=== PATIENT | female | born 1980 | race African-American/Black ===

== ENCOUNTER 2022-01-14 10:50 | Outpatient (REF) | payer OTHER, SELFPAY ==
[2022-01-14 13:34] LABS: Basophils Percent Auto 0.4 % (0-2); Eosinophils Percent Auto 1.3 % (0-4); Hematocrit 32.2 % (37.0-47.0); Hemoglobin 9.3 g/dl (12.0-16.0); Imm Gran Abs Auto 0.01 X10*3/uL (0.00-0.03); Imm Gran Pct Auto 0.4 % (0.0-0.4); Lymphocytes Absolute Auto 0.9 X10*3/uL (1.2-4.9); Lymphocytes Percent Auto 38.7 % (20-40); MANUAL DIFF FLAG SCAN; Mean Corpuscular HGB Conc 28.9 g/dl (31.0-35.0); Mean Corpuscular Hemoglobin 21.4 pg (27.0-33.0); Mean Platelet Volume 11.6 fL (9.4-12.3); Monocytes Absolute Auto 0.3 X10*3/uL (0.1-1.2); Monocytes Percent Auto 11.9 % (2-11); Neutrophils Absolute Auto 1.1 x10*3/uL (2.0-8.3); Neutrophils Percent Auto 47.3 % (45-73); PLT CLUMP 1; Red Blood Count 4.35 X10*6/uL (4.20-5.50); Red Cell Distribution Width 18.7 % (11.0-16.0); SCAN SMEAR FLAG 1
[2022-01-14 13:48] LABS: Iron 23 mcg/dL (30-160); Percent Iron Saturation 7 % (15-50); Total Iron Binding Capacity 342 mcg/dL (228-428); Unsaturated Iron Binding 319 ug/dL
[2022-01-14 13:52] LABS: Platelet Count 218 X10*3/uL (160-400); White Blood Count 2.4 X10*3/uL (4.8-10.8)
[2022-01-14 13:53] LABS: SLIDE REVIEW VERIFIED
[2022-01-14 14:09] LABS: Erythrocyte Sedimentation Rate 16 MM/HR (0-20)
[2022-01-14 14:24] LABS: Creatinine Urine 167.63 mg/dL; Protein/Creatinine Ratio, Ur 0.05 (<0.2); Total Protein Urine Random 8 mg/dL (<12)
[2022-01-15 14:17] LABS: Complement C3 112 mg/dL (83-193)
[2022-01-15 17:32] LABS: Anti DNA DS Antibody 1 IU/mL
== END 2022-01-14 10:51 | disposition home or self-care (01) ==
LOC: HO.10HDL 10:50
PROVIDERS: Visit Provider Internal Medicine Rheumatology
DX: M32.9 Systemic lupus erythematosus, unspecified (principal); D50.9 Iron deficiency anemia, unspecified
CPT/HCPCS: 36415; 83540; 84156; 85025; 85652; 86160; 86225

== ENCOUNTER → 2022-07-17 09:16 | Outpatient (BNVA) | payer OTHER, SELFPAY | PROVIDERS: PCP Internal Medicine; Visit Provider Internal Medicine Rheumatology | DX: Z13.89 Encounter for screening for other disorder (principal) ==

== ENCOUNTER 2022-07-17 10:30 | Outpatient (REF) | payer OTHER, SELFPAY ==
[2022-07-17 13:46] LABS: Basophils Percent Auto 0.4 % (0-2); Hematocrit 35.8 % (37.0-47.0); Hemoglobin 10.8 g/dl (12.0-16.0); Lymphocytes Absolute Auto 0.9 X10*3/uL (1.2-4.9); Mean Corpuscular HGB Conc 30.2 g/dl (31.0-35.0); Mean Corpuscular Hemoglobin 23.1 pg (27.0-33.0); Mean Corpuscular Volume 76.5 fL (80.0-98.0); Red Blood Count 4.68 X10*6/uL (4.20-5.50)
[2022-07-17 13:47] LABS: Eosinophils Absolute Auto 0.1 X10*3/uL (0.0-0.4); Lymphocytes Percent Auto 36.3 % (20-40); Mean Platelet Volume 11.6 fL (9.4-12.3); Monocytes Absolute Auto 0.3 X10*3/uL (0.1-1.2); Monocytes Percent Auto 13.5 % (2-11); Neutrophils Absolute Auto 1.2 x10*3/uL (2.0-8.3); Neutrophils Percent Auto 47.8 % (45-73); Platelet Count 241 X10*3/uL (160-400); Red Cell Distribution Width 16.2 % (11.0-16.0)
[2022-07-17 13:48] LABS: MANUAL DIFF FLAG NO; White Blood Count 2.5 X10*3/uL (4.8-10.8)
[2022-07-17 14:10] LABS: Anion Gap 10 (12-20); Blood Urea Nitrogen 5 mg/dL (9-16); C Reactive Protein 0.13 mg/dL (< or = 0.50); Calcium 8.8 mg/dL (8.4-10.2); Carbon Dioxide 25 mmol/L (22-29); Chloride 107 mmol/L (96-108); Estimated Glomerular Filt Rate > 60; Glucose Random 82 mg/dL (60-115); Iron 16 mcg/dL (30-160); Percent Iron Saturation 6 % (15-50); Potassium 4.1 mmol/L (3.3-5.1); Sodium 138 mmol/L (135-145); Total Iron Binding Capacity 257 mcg/dL (228-428); Unsaturated Iron Binding 241 ug/dL
[2022-07-17 14:22] LABS: Erythrocyte Sedimentation Rate 13 MM/HR (0-20)
[2022-07-17 14:26] LABS: Creatinine Urine 169.36 mg/dL; Protein/Creatinine Ratio, Ur 0.05 (<0.2); Total Protein Urine Random 8 mg/dL (<12)
[2022-07-19 18:23] LABS: Anti DNA DS Antibody 2 IU/mL; SM/Ribonucleoprotein Ab 7.0 POS AI (<1.0 NEG); Smith Protein >8.0 POS AI (<1.0 NEG)
== END 2022-07-17 10:31 | disposition home or self-care (01) ==
LOC: HO.10HDL 10:30
PROVIDERS: Visit Provider Internal Medicine Rheumatology
DX: M32.9 Systemic lupus erythematosus, unspecified (principal); D50.9 Iron deficiency anemia, unspecified
CPT/HCPCS: 36415; 80048; 83540; 84156; 85025; 85652; 86140; 86225; 86235

== ENCOUNTER 2022-12-13 13:06 | Outpatient (REF) | payer OTHER, SELFPAY ==
--- NOTE | ~2022-12-13 | MR_ITS ---
MRI OF THE BRAIN WITHOUT IV CONTRAST INDICATION: Headache. 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 COMPARISON: None available. TECHNIQUE: Multiplanar multisequence MR imaging of the brain was obtained without IV contrast. 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 There are also small areas of cortical/subcortical encephalomalacia and gliosis within the right parietal and occipital lobes. There is no hydrocephalus, extra-axial surface collection, or herniation. The major flow voids at the skull base are preserved. There is no acute infarct on diffusion-weighted imaging. There is no intracranial hemorrhage on the gradient recalled echo acquisition. There is a partially empty sella. The cerebellar tonsils are normally positioned. The cerebellum and brainstem are normal. The craniocervical junction is normal. Osseous marrow signal intensity is homogenous. The visualized soft tissues are unremarkable. MR/MR head/brain wo con IMPRESSION: No acute findings. 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 There are also small areas of cortical/subcortical encephalomalacia and gliosis within the right parietal and occipital lobes. These findings likely reflect chronic infarcts and a vascular workup is advised.
== END 2022-12-13 13:07 | disposition home or self-care (01) ==
LOC: HO.MRI 13:06
PROVIDERS: PCP Internal Medicine; Visit Provider Internal Medicine Endocrinology, Diabetes & Metabolism
DX: G93.2 Benign intracranial hypertension (principal); R51.9 Headache, unspecified
CPT/HCPCS: 70551

== ENCOUNTER → 2022-12-16 09:32 | Outpatient (BNVA) | payer OTHER, SELFPAY | PROVIDERS: PCP Internal Medicine; Visit Provider Internal Medicine Rheumatology ==

== ENCOUNTER 2022-12-16 10:33 | Outpatient (REF) | payer OTHER, SELFPAY ==
[2022-12-16 11:00] LABS: MANUAL DIFF FLAG NO
[2022-12-16 11:49] LABS: Basophils Percent Auto 0.3 % (0-2); Eosinophils Absolute Auto 0.1 X10*3/uL (0.0-0.4); Eosinophils Percent Auto 2.7 % (0-4); Hematocrit 27.6 % (37.0-47.0); Hemoglobin 8.1 g/dl (12.0-16.0); Imm Gran Abs Auto 0.01 X10*3/uL (0.00-0.03); Imm Gran Pct Auto 0.3 % (0.0-0.4); Lymphocytes Absolute Auto 1.2 X10*3/uL (1.2-4.9); Lymphocytes Percent Auto 34.6 % (20-40); Mean Corpuscular HGB Conc 29.3 g/dl (31.0-35.0); Mean Corpuscular Hemoglobin 22.5 pg (27.0-33.0); Mean Corpuscular Volume 76.7 fL (80.0-98.0); Mean Platelet Volume 11.4 fL (9.4-12.3); Monocytes Absolute Auto 0.4 X10*3/uL (0.1-1.2); Monocytes Percent Auto 13.1 % (2-11); Neutrophils Absolute Auto 1.6 x10*3/uL (2.0-8.3); Platelet Count 208 X10*3/uL (160-400); Red Cell Distribution Width 19.5 % (11.0-16.0); White Blood Count 3.4 X10*3/uL (4.8-10.8)
[2022-12-16 12:21] LABS: Erythrocyte Sedimentation Rate 33 MM/HR (0-20)
[2022-12-16 13:09] LABS: C Reactive Protein 0.22 mg/dL (< or = 0.50); Iron 10 mcg/dL (30-160); Percent Iron Saturation 4 % (15-50); Total Iron Binding Capacity 284 mcg/dL (228-428); Unsaturated Iron Binding 274 ug/dL
[2022-12-16 13:13] LABS: Creatinine Urine 209.05 mg/dL; Protein/Creatinine Ratio, Ur 0.05 (<0.2); Total Protein Urine Random 11 mg/dL (<12)
[2022-12-16 13:28] LABS: Thyroid Stimulating Hormone 1.36 uIU/mL (0.32-4.0)
[2022-12-17 18:47] LABS: Complement C3 118 mg/dL (83-193)
[2022-12-18 17:38] LABS: Cardiolipin IgG Ab <2.0 GPL-U/mL; Cardiolipin IgM Ab 10.2 MPL-U/mL
[2022-12-18 20:09] LABS: Haptoglobin 131 mg/dL (43-212)
[2022-12-20 07:23] LABS: PTT (LAC) Screen 32 sec (<=40)
[2022-12-26 12:43] LABS: Beta-2 Glycoprotein IgA 3.4 U/mL (<20.0); Beta-2 Glycoprotein IgG 2.8 U/mL (<20.0); Beta-2 Glycoprotein IgM 10.7 U/mL (<20.0)
== END 2022-12-16 10:34 | disposition home or self-care (01) ==
LOC: HO.10HDL 10:33
PROVIDERS: Visit Provider Internal Medicine Rheumatology
DX: M32.9 Systemic lupus erythematosus, unspecified (principal); R93.0 Abnormal findings on diagnostic imaging of skull and head, not elsewhere classified; D50.9 Iron deficiency anemia, unspecified
CPT/HCPCS: 36415; 83010; 83540; 84156; 84443; 85025; 85597; 85598; 85613; 85652; 85670; 85730; 86140; 86146; 86147; 86160

== ENCOUNTER → 2023-01-14 15:09 | Outpatient (BNV) | payer OTHER, SELFPAY | PROVIDERS: PCP Internal Medicine; Visit Provider Internal Medicine Medical Oncology | DX: D50.9 Iron deficiency anemia, unspecified (principal) | CPT/HCPCS: 99204; 99213 ==

== ENCOUNTER 2023-02-05 13:00 | Outpatient (REF) | payer OTHER, SELFPAY | END 2023-02-05 13:01 | disposition home or self-care (01) | LOC: HO.MDS 13:00 | PROVIDERS: Visit Provider Internal Medicine Medical Oncology | DX: D50.8 Other iron deficiency anemias (principal) | CPT/HCPCS: 96365; J1756 ==

== ENCOUNTER 2023-02-06 11:55 | Outpatient (AMB) | payer OTHER, SELFPAY ==
[2023-02-06 11:57] VITALS: BP 130/72; PULSE 84; TEMP 36.1; O2SAT 98; BMI 29.8
--- NOTE | 2023-02-06 11:57 | A.OFFVIS_ITS ---
Intake Vital Signs 02/06/23 11:57 Height 5 ft 7 in Weight 190 lb 0.615 oz BMI 29.8 BP 130/72 Blood Pressure Location Rt brachial Position Sitting Pulse 84 Pulse Source Pulse Oximeter Temp 97 F Temp Source Skin Pulse Oximetry (%) 98 Oxygen Delivery Method Room Air Intake Visit Reasons: sle Intake Note: Here for SLE follow up Began iron IV infusion yesterday through [facility]. 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 She finally did make it to [facility]. I spoke with the neurologist earlier this week. They think the frontal lobe lesion is the sequela from an old CVA. Workup with CT angiogram of the head and neck, lumbar puncture, and echocardiogram has been ordered. They also repeated her lupus anticoagulant studies but they were all negative as they were at our hospital a few weeks ago. She has been taking time off from work because of overall fatigue. It is unclear whether this is related to autoimmune disease such as lupus or her iron deficiency anemia. She did get infusion of iron this week. That went uneventfully. She does have plans to see cigar bander hand in a few weeks. She still gets heavy periods. She remains on hydroxychloroquine 200 mg twice a day, vitamin-D and multivitamins. She does not have any headaches at this point. There has been no visual symptoms, weakness, oral ulcers, dry eyes, dry mouth, chest pain, palpitations, or abdominal pain. Looking through her old records she regionally presented with alopecia, positive DILMA, fatigue, and leukopenia. She has been on hydroxychloroquine since 2017. [facility] Medical History (Updated 02/06/23 @ 13:25 by Narendra Campos MD) Iron deficiency anemia Surgical History H/O myomectomy Family History Father Diabetes Mother Breast cancer Maternal Grandmother Breast cancer Social History Household Members Other:: lives alone Housing: Condominium Are you a primary respiratory care practitioner to a significant other at home: No Do you presently have visiting nurse or other home services: No 75 years or older and lives alone: No Alcohol intake: current Alcohol intake frequency: holidays/special occasions only Alcohol type: wine Patient Tobacco Use Status: Never used Tobacco e-Cigarette/Vaping Use: Never Used Second Hand Smoke Exposure: No Current occupational status: employed Review of Systems Const Details: Still with some fatigue. She is able to sleep longer at home than she was before her time off from work. Negative for appetite change, weight change, fever, chills, malaise Eyes Details: The headaches have resolved. Negative for vision change, dry eyes and dizziness ENT Details: Negative for hearing change, tinnitus, oral ulcer, nose bleeds and oral dryness. Card Details: Negative chest pain, edema and syncope Resp Details: Negative for SOB, cough and wheezing GI Details: Negative indigestion/heartburn, nausea, abdominal pain, bowel changes, diarrhea, constipation and bloody stool. Details: Menses remain heavy. Extension Clerk evaluation planned. Negative for dysuria, hematuria, nocturia, decreased force/flow and genital discharge Skin/Breast Details: Negative for itching, rash, hives, Raynaud's symptoms, sun sensitivity, and skin cancer Neuro Details: Negative for epilepsy, palsy, stroke, changes in speech, tingling and weakness Psych Details: Negative for anxiety, depression and stress Endo Details: Negative for polyuria and polydypsia Davy/Lymph Details: Negative for excessive bruising or bleeding. Physical Exam Vital Signs: Last Vital Signs Temp 97 F 02/06/23 11:57 Pulse 84 02/06/23 11:57 BP 130/72 02/06/23 11:57 Pulse Ox 98 02/06/23 11:57 Oxygen Delivery Method Room Air 02/06/23 11:57 BMI result Body Mass Index 29.8 APPEARANCE: Patient in no acute distress EYES no redness, pupils equal and reactive to light, eyelids normal EARS:? External ear normal, canal clear and tympanic membrane normal.? No temporal tenderness or TM joint tenderness. NOSE/SINUS:? Airflow through both nares, no nasal discharge, no bleeding THROAT:? Oral mucosa moist, no ulcerations NECK:? No thyromegaly or masses, no adenopathy, trachea midline. HEART:? Regulrar rhythm, S1-S2 heard, no murmurs, rubs or gallops. LUNG:? Clear to percussion and auscultation ABD:? Normal bowel sounds, no organomegaly, masses or tenderness. EXTREMITIES:? No edema, no calf tenderness, normal peripheral pulses. NEURO:? Oriented and alert x3.? No focal weakness.? Reflexes symmetric.? Gait normal. SKIN:? She has multiple areas of hair thinning on the scalp but no significant cutaneous lesions. Elsewhere the skin has no inflammatory or neoplastic lesions.? The fingertips and toes showed no evidence of Raynaud's phenomena. JOINT EXAM:?? Cervical Spine:.? Full range of motion without pain; no tenderness. Thoracic Spine:.? No scoliosis.? No tenderness on palpation. Lumbar Spine:.? Alignment normal.? Full range of motion without pain, no tenderness. Chest Wall:.? No tenderness, swelling, increased warmth or erythema. Hands:.? Normal pain-free range of motion without tenderness, swelling, increased warmth or erythema. Able to make a full fist and has a good director of staff development strength. Wrists:.? Normal pain-free range of motion without tenderness, swelling, increased warmth or erythema. Elbows:. Normal pain-free range of motion without tenderness, swelling, increased warmth or erythema. Shoulders:.?? Full range of motion without pain. No tenderness, weakness, swelling, increased warmth or erythema. Hips:.? Full range of motion without pain. Hip bursa:.? No tenderness. Knees:?? Normal pain-free range of motion without tenderness, swelling, increased warmth or erythema.? There is no effusion or crepitation Ankles:? Normal pain-free range of motion without tenderness, swelling, increased warmth or erythema. Feet:.? Normal pain-free range of motion without tenderness, swelling, increased warmth or erythema. Results Reviewed Results Reviewed: Laboratory Tests 07/17/22 12/16/22 01/14/23 10:35 10:57 16:11 WBC 2.5 L 3.4 L 4.0 L Hgb 10.8 L 8.1 L D 8.9 L Plt Count 188 Laboratory Tests 12/16/22 12/16/22 12/16/22 10:57 10:57 10:57 ESR 33 H Haptoglobin 131 Creatinine Iron C-Reactive Protein 0.22 01/14/23 16:11 ESR Haptoglobin Creatinine 0.74 Iron 14 L C-Reactive Protein Laboratory Tests 07/17/22 12/16/22 10:35 10:57 Sm (Cho) Antibody >8.0 POS A SM/MAGAZINE PUBLISHER IgG Antibody 7.0 POS A Double Strand DNA Ab 2 Beta-2-GPI IgG Ab 2.8 Beta-2-GPI IgA Ab 3.4 Beta-2-GPI IgM Ab 10.7 Laboratory Tests 12/16/22 10:57 LA PTT Screen 32 dRVV Screen 39 02/03/2023 lab work from [facility]: Hemoglobin 9.1, white count 3.2, sed rate 54, creatinine 0.7, PTT 24.2, albumin 4.1, transaminases normal, CRP 0.4, C3 101, the C4-12, beta 2 glycoprotein antibodies negative, DILMA positive at 320 titer, spot urine protein 612 mg/dL Assessment & Plan Assessment & Plan (1) History of CVA (cerebrovascular accident): Comment: Right frontal lobe encephalomalacia seen on MRI 11/2022 probable old CVA; ? residual memory deficits Code(s): Z86.73 - Personal history of transient ischemic attack (TIA), and cerebral infarction without residual deficits (2) Long-term use of hydroxychloroquine: Code(s): Z79.899 - Other longterm (current) drug therapy (3) Iron deficiency anemia: Comment: fall 2020; intravenous iron begun January 2023. Extension Clerk workup pending Code(s): D50.9 - Iron deficiency anemia, unspecified (4) Systemic lupus: Comment: 2016 - initially saw Dr. Stevenson at [place] Alopecia, arthralgia, mild leukopenia Plaquenil since 2016. Eye exam December,, December 20202019: anti DNA, C3, C4 normal. Anti- MAGAZINE PUBLISHER and anti-Sm elevated Code(s): M32.9 - Systemic lupus erythematosus, unspecified Plan SLE with no real symptoms to suggest clinical activity. Additionally the exam does not show any inflammatory disease. She has chronic leukopenia. The ESR is a bit higher than previously. The hemoglobin is stable and probably will get better with the intravenous iron. She will follow through with the cigar bander hand workup. She is now on aspirin daily as a prophylactic measure for stroke. She is awaiting dates for echocardiogram, CT angiogram of the head and neck and lumbar puncture. I told her that presently I would not add [id number] treatment for her lupus. There is no real evidence that she has active disease other than the slight elevation of a sed rate recently. If the LP shows sign of inflammation we may need to change that plan however. Recent urine testings at [facility] suggested some proteinuria. I will recheck that here. It is possible the test was influenced by the fact that she was menstruating at the time. I will see her back in about 6 weeks. Orders: Orders Protein Creatinine Ratio, Ur Today M32.9 - Systemic lupus erythematosus, unspecified Medications: New aspirin 81 mg PO DAILY 30 tabs 5RF Coding Level of Care Code Est Pt Level 3 (63499) Diagnoses History of CVA (cerebrovascular accident) Z86.73 Long-term use of hydroxychloroquine Z79.899 Iron deficiency anemia D50.9 Systemic lupus M32.9
== END 2023-02-06 12:29 | disposition home or self-care (01) ==
PROVIDERS: Referring Provider Internal Medicine; Visit Provider Internal Medicine Rheumatology
DX: Z86.73 Personal history of transient ischemic attack (TIA), and cerebral infarction without residual deficits (principal); Z79.899 Other long term (current) drug therapy; D50.9 Iron deficiency anemia, unspecified; M32.9 Systemic lupus erythematosus, unspecified
CPT/HCPCS: 99213

== ENCOUNTER → 2023-02-06 11:55 | Outpatient (BNVA) | payer OTHER, SELFPAY | PROVIDERS: PCP Internal Medicine; Visit Provider Internal Medicine Rheumatology ==

== ENCOUNTER 2023-02-11 12:36 | Outpatient (REF) | payer OTHER, SELFPAY | END 2023-02-11 12:37 | disposition home or self-care (01) | LOC: HO.MDS 12:36 | PROVIDERS: Visit Provider Internal Medicine Medical Oncology | DX: D50.8 Other iron deficiency anemias (principal) | CPT/HCPCS: 96374; J1756 ==

== ENCOUNTER 2023-02-11 14:00 | Outpatient (REF) | payer OTHER, SELFPAY ==
[2023-02-11 17:02] LABS: Creatinine Urine 193.45 mg/dL; Protein/Creatinine Ratio, Ur 0.12 (<0.2); Total Protein Urine Random 23 mg/dL (<12)
== END 2023-02-11 14:01 | disposition home or self-care (01) ==
LOC: HO.LAB 14:00
PROVIDERS: Visit Provider Internal Medicine Rheumatology
DX: M32.9 Systemic lupus erythematosus, unspecified (principal)
CPT/HCPCS: 84156

== ENCOUNTER 2023-02-20 11:43 | Outpatient (REF) | payer OTHER, SELFPAY | END 2023-02-20 11:44 | disposition home or self-care (01) | LOC: HO.MDS 11:43 | PROVIDERS: Visit Provider Internal Medicine Medical Oncology | DX: D50.9 Iron deficiency anemia, unspecified (principal) | CPT/HCPCS: 96365; J1756 ==

== ENCOUNTER 2023-02-27 14:06 | Outpatient (REF) | payer OTHER, SELFPAY ==
[2023-02-27 14:31] LABS: MANUAL DIFF FLAG NO
[2023-02-27 14:42] LABS: Basophils Percent Auto 0.4 % (0-2); Eosinophils Absolute Auto 0.1 X10*3/uL (0.0-0.4); Eosinophils Percent Auto 2.7 % (0-4); Hematocrit 31.4 % (37.0-47.0); Hemoglobin 9.4 g/dl (12.0-16.0); Lymphocytes Absolute Auto 1.1 X10*3/uL (1.2-4.9); Lymphocytes Percent Auto 41.6 % (20-40); Mean Corpuscular HGB Conc 29.9 g/dl (31.0-35.0); Mean Corpuscular Hemoglobin 22.4 pg (27.0-33.0); Mean Corpuscular Volume 74.9 fL (80.0-98.0); Mean Platelet Volume 10.8 fL (9.4-12.3); Monocytes Absolute Auto 0.4 X10*3/uL (0.1-1.2); Monocytes Percent Auto 15.6 % (2-11); Neutrophils Percent Auto 39.7 % (45-73); Platelet Count 240 X10*3/uL (160-400); Red Blood Count 4.19 X10*6/uL (4.20-5.50); Red Cell Distribution Width 22.4 % (11.0-16.0); White Blood Count 2.6 X10*3/uL (4.8-10.8)
== END 2023-02-27 14:07 | disposition home or self-care (01) ==
LOC: HO.MDS 14:06
PROVIDERS: Visit Provider Internal Medicine Medical Oncology
DX: D50.8 Other iron deficiency anemias (principal)
CPT/HCPCS: 36415; 85025; 96365; J1756

== ENCOUNTER 2023-03-07 14:21 | Outpatient (REF) | payer OTHER, SELFPAY | END 2023-03-07 14:22 | disposition home or self-care (01) | LOC: HO.MDS 14:21 | PROVIDERS: Visit Provider Internal Medicine Medical Oncology | DX: D50.8 Other iron deficiency anemias (principal) | CPT/HCPCS: 96365; J1756 ==

== ENCOUNTER 2023-03-14 12:38 | Outpatient (REF) | payer OTHER, SELFPAY | END 2023-03-14 12:39 | disposition home or self-care (01) | LOC: HO.MDS 12:38 | PROVIDERS: Visit Provider Internal Medicine Medical Oncology | DX: D50.8 Other iron deficiency anemias (principal) | CPT/HCPCS: 96365; J1756 ==

== ENCOUNTER 2023-03-19 11:40 | Outpatient (AMB) | payer OTHER, SELFPAY ==
--- NOTE | 2023-03-19 11:43 | A.OFFVIS_ITS ---
Intake Vital Signs 03/19/23 11:44 Height 5 ft 7 in Weight 190 lb 14.725 oz BMI 29.9 BP 122/70 Blood Pressure Location Lt brachial Position Sitting Pulse 78 Pulse Source Pulse Oximeter Temp 98 F Temp Source Skin Pulse Oximetry (%) 100 Oxygen Delivery Method Room Air Intake Visit Reasons: sle Intake Note: Patient presents today for SLE follow up. 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 She has been having a workup for this to determine if there was a source for an embolic cause. She had a echocardiogram that showed an atrial septal aneurysm. Apparently cardiology follow-up is planned. She has had CT angiogram of the neck and head with no vascular abnormality seen. She also had had an LP. This CSF had a normal protein and cell count. There was a slightly elevated IgG level in the CSF but the serum IgG was mildly elevated as well. She does not seem to have any headaches anymore. There has been no neurologic deficits. She gets occasional neck and shoulder pains but they do not seem to be present today. There has been no recent problems with skin rashes, oral ulcers, chest pain or abdominal pains. She also has a hematology referral but does not have an appointment yet. She has been receiving intravenous iron infusions for her iron deficiency anemia. [facility] Medical History (Updated 03/19/23 @ 13:12 by Narendra Campos MD) Iron deficiency anemia Surgical History H/O myomectomy Family History Father Diabetes Mother Breast cancer Maternal Grandmother Breast cancer Social History Household Members Other:: lives alone Housing: [facility] Are you a primary career resource technician to a significant other at home: No Do you presently have visiting nurse or other home services: No Alcohol intake: current Alcohol intake frequency: holidays/special occasions only Alcohol type: wine Patient Tobacco Use Status: Never used Tobacco e-Cigarette/Vaping Use: Never Used Second Hand Smoke Exposure: No Current occupational status: employed Review of Systems Const Details: Negative for appetite change, weight change, fever, chills, malaise and fatigue Eyes Details: Negative for vision change, dry eyes,headaches and dizziness ENT Details: Negative for hearing change, tinnitus, oral ulcer, nose bleeds and oral dryness. Card Details: Negative chest pain, edema and syncope Resp Details: Negative for SOB, cough and wheezing GI Details: Negative indigestion/heartburn, nausea, abdominal pain, bowel changes, diarrhea, constipation and bloody stool. Skin/Breast Details: Negative for itching, rash, hives, Raynaud's symptoms, sun sensitivity, and skin cancer Neuro Details: Negative for epilepsy, palsy, stroke, changes in speech, tingling and weakness Psych Details: Negative for anxiety, depression and stress Davy/Lymph Details: Negative for excessive bruising or bleeding. Physical Exam Vital Signs: Last Vital Signs Temp 98 F 03/19/23 11:44 Pulse 78 03/19/23 11:44 BP 122/70 03/19/23 11:44 Pulse Ox 100 03/19/23 11:44 Oxygen Delivery Method Room Air 03/19/23 11:44 BMI result Body Mass Index 29.9 APPEARANCE: Patient in no acute distress EYES no redness, pupils equal and reactive to light, eyelids normal THROAT:? Oral mucosa moist, no ulcerations NECK:? No thyromegaly or masses, no adenopathy, trachea midline. HEART:? Regulrar rhythm, S1-S2 heard, no murmurs, rubs or gallops. LUNG:? Clear to percussion and auscultation ABD:? Normal bowel sounds, no organomegaly, masses or tenderness. EXTREMITIES:? No edema, no calf tenderness, normal peripheral pulses. NEURO:? Oriented and alert x3.? No focal weakness.? Reflexes symmetric.? Gait normal. SKIN:? She has multiple areas of hair thinning on the scalp but no significant cutaneous lesions. Elsewhere the skin has no inflammatory or neoplastic lesions.? The fingertips and toes showed no evidence of Raynaud's phenomena. JOINT EXAM:? Normal pain-free range of motion in the neck and shoulders. No other areas of joint pain, tenderness or swelling. ? Results Reviewed Results Reviewed: 03/17/23: CT angiogram of the head and neck did not reveal vascular disease. The her lumbar puncture was done in January. The CSF had less than 1 white cell and a protein of 23. The IgG protein was slightly elevated at 33 with the serum value [id number] Assessment & Plan Assessment & Plan (1) History of CVA (cerebrovascular accident): Comment: Right frontal lobe encephalomalacia seen on MRI 11/2022 probable old CVA; ? residual memory deficits. Workup with CT angiogram of the head and neck was normal. 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 CSF showed no leukocytosis, normal protein, slightly elevated IgG., studies for lupus anticoagulant and anti cardiolipin antibodies were negative. Code(s): Z86.73 - Personal history of transient ischemic attack (TIA), and cerebral infarction without residual deficits (2) Long-term use of hydroxychloroquine: Code(s): Z79.899 - Other terminal make up operator (current) drug therapy (3) Iron deficiency anemia: Comment: fall 2020; intravenous iron begun January 2023. Sizing Machine Tender workup pending Code(s): D50.9 - Iron deficiency anemia, unspecified (4) Systemic lupus: Comment: 2016 - initially saw Dr. Stevenson at [place] Alopecia, arthralgia, mild leukopenia Plaquenil since 2016. Eye exam December,, December 20202019: anti DNA, C3, C4 normal. Anti- PIPE SETTER and anti-Sm elevated Code(s): M32.9 - Systemic lupus erythematosus, unspecified Plan SLE with no obvious clinical activity presently. She does not seem to have any significant neurologic deficit from the stroke she had. We still do not have a good explanation of why it occurred as there was no vascular or cardiac abnormality that could explain because of a CVA. Additionally the lupus anticoagulant studies have been negative. We will continue with the aspirin as a preventive measure as well as the hydroxychloroquine for her lupus. I will recheck some markers of inflammation and lupus activity. She will follow through with Hematology and Cardiology at [facility]. Follow-up in 3 months. Orders: Orders Complement C4 Today M32.9 - Systemic lupus erythematosus, unspecified Erythrocyte Sedimentation Rate Today M32.9 - Systemic lupus erythematosus, unspecified Anti DNA DS Antibody Today M32.9 - Systemic lupus erythematosus, unspecified Complement C3 Today M32.9 - Systemic lupus erythematosus, unspecified Complete Blood Count Auto Diff Today M32.9 - Systemic lupus erythematosus, unspecified C Reactive Protein Today M32.9 - Systemic lupus erythematosus, unspecified Protein Creatinine Ratio, Ur Today M32.9 - Systemic lupus erythematosus, unspecified Coding Level of Care Code Est Pt Level 3 (48017) Diagnoses History of CVA (cerebrovascular accident) Z86.73 Long-term use of hydroxychloroquine Z79.899 Iron deficiency anemia D50.9 Systemic lupus M32.9
[2023-03-19 11:44] VITALS: BP 122/70; PULSE 78; TEMP 36.6; O2SAT 100; BMI 29.9
== END 2023-03-19 12:32 | disposition home or self-care (01) ==
PROVIDERS: Visit Provider Internal Medicine Rheumatology
DX: Z86.73 Personal history of transient ischemic attack (TIA), and cerebral infarction without residual deficits (principal); Z79.899 Other long term (current) drug therapy; D50.9 Iron deficiency anemia, unspecified; M32.9 Systemic lupus erythematosus, unspecified
CPT/HCPCS: 99213

== ENCOUNTER → 2023-03-19 11:40 | Outpatient (BNVA) | payer OTHER, SELFPAY | PROVIDERS: Visit Provider Internal Medicine Rheumatology ==

== ENCOUNTER 2023-03-19 12:45 | Outpatient (REF) | payer OTHER, SELFPAY ==
[2023-03-19 13:24] LABS: MANUAL DIFF FLAG NO
[2023-03-19 13:42] LABS: Basophils Percent Auto 0.4 % (0-2); Eosinophils Absolute Auto 0.1 X10*3/uL (0.0-0.4); Eosinophils Percent Auto 1.8 % (0-4); Hematocrit 36.6 % (37.0-47.0); Hemoglobin 10.9 g/dl (12.0-16.0); Lymphocytes Absolute Auto 0.9 X10*3/uL (1.2-4.9); Lymphocytes Percent Auto 30.7 % (20-40); Mean Corpuscular HGB Conc 29.8 g/dl (31.0-35.0); Mean Corpuscular Hemoglobin 23.3 pg (27.0-33.0); Mean Corpuscular Volume 78.4 fL (80.0-98.0); Mean Platelet Volume 11.5 fL (9.4-12.3); Monocytes Absolute Auto 0.4 X10*3/uL (0.1-1.2); Monocytes Percent Auto 13.9 % (2-11); Neutrophils Absolute Auto 1.5 x10*3/uL (2.0-8.3); Neutrophils Percent Auto 53.2 % (45-73); Platelet Count 285 X10*3/uL (160-400); Red Blood Count 4.67 X10*6/uL (4.20-5.50); Red Cell Distribution Width 22.1 % (11.0-16.0); White Blood Count 2.8 X10*3/uL (4.8-10.8)
[2023-03-19 14:16] LABS: C Reactive Protein 0.35 mg/dL (< or = 0.50)
[2023-03-19 14:21] LABS: Creatinine Urine 42.08 mg/dL; Total Protein Urine Random < 7 mg/dL (<12)
[2023-03-19 14:27] LABS: Erythrocyte Sedimentation Rate 16 MM/HR (0-20)
[2023-03-20 21:53] LABS: Anti DNA DS Antibody 2 IU/mL
[2023-03-21 02:34] LABS: Complement C3 127 mg/dL (83-193)
== END 2023-03-19 12:46 | disposition home or self-care (01) ==
LOC: HO.10HDL 12:45
PROVIDERS: Visit Provider Internal Medicine Rheumatology
DX: M32.9 Systemic lupus erythematosus, unspecified (principal)
CPT/HCPCS: 36415; 82570; 84156; 85025; 85652; 86140; 86160; 86225

== ENCOUNTER 2023-03-21 12:01 | Outpatient (REF) | payer OTHER, SELFPAY | END 2023-03-21 12:02 | disposition home or self-care (01) | LOC: HO.MDS 12:01 | PROVIDERS: Visit Provider Internal Medicine Medical Oncology | DX: D50.8 Other iron deficiency anemias (principal) | CPT/HCPCS: 96365; J1756 ==

== ENCOUNTER 2023-03-28 12:01 | Outpatient (REF) | payer OTHER, SELFPAY | END 2023-03-28 12:02 | disposition home or self-care (01) | LOC: HO.MDS 12:01 | PROVIDERS: Visit Provider Internal Medicine Medical Oncology | DX: D50.8 Other iron deficiency anemias (principal) | CPT/HCPCS: 36415; 85025; 96365; J1756 ==

== ENCOUNTER 2023-05-21 15:17 | Outpatient (REF) | payer OTHER, SELFPAY | END 2023-05-21 15:18 | disposition home or self-care (01) | LOC: HO.MDS 15:17 | PROVIDERS: Visit Provider Internal Medicine Medical Oncology | DX: D50.8 Other iron deficiency anemias (principal) | CPT/HCPCS: 96374; J1756 ==

== ENCOUNTER 2023-05-30 14:27 | Outpatient (REF) | payer OTHER, SELFPAY | END 2023-05-30 14:28 | disposition home or self-care (01) | LOC: HO.MDS 14:27 | PROVIDERS: Visit Provider Internal Medicine Medical Oncology | DX: D50.8 Other iron deficiency anemias (principal) | CPT/HCPCS: 96365; J1756 ==

== ENCOUNTER 2023-06-03 11:49 | Outpatient (AMB) | payer OTHER, SELFPAY ==
--- NOTE | 2023-06-03 11:54 | MHC.OFFVIS ---
Intake Vital Signs 06/03/23 12:00 Height 5 ft 7 in Weight 180 lb 12.465 oz BMI 28.3 BP 130/70 Blood Pressure Location Rt brachial Position Sitting Pulse 67 Pulse Source Pulse Oximeter Temp 97 F Temp Source Skin Pulse Oximetry (%) 99 Oxygen Delivery Method Room Air Intake Visit Reasons: SLE Intake Note: Patient presents today to follow up on SLE. 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 In general she has been feeling okay with no joint pains or rashes. The headaches have not returned. She has no chest pain, oral ulcers or abdominal pains. She is seeing hematology and classroom technology coach about iron deficiency anemia due to heavy menstrual bleeding. She has an IUD in place currently. She thinks that might have helped somewhat but she still is requiring IV iron infusions. She remains on hydroxychloroquine 200 b.i.d., aspirin 81 mg daily, vitamin-D daily, and a B complex vitamin daily. She says that she had an eye exam for monitoring her hydroxychloroquine use during the summer and it was okay. She is currently working full-time from home. She has a cardiology appointment at [facility] to comment on the finding of the small aneurysm in the atrial septum and whether that might be contributing to her CVA risk. There was also a hematology referral supposed to have been done at [facility] because of an elevated factor 8 level. She does not have an appointment for that yet. [facility] Medical History (Updated 06/03/23 @ 12:20 by Narendra Campos MD) Iron deficiency anemia Surgical History H/O myomectomy Family History Father Diabetes Mother Breast cancer Maternal Grandmother Breast cancer Social History Household Members Other:: lives alone Housing: Condominium Are you a primary respiratory care program director to a significant other at home: No Do you presently have visiting nurse or other home services: No 75 years or older and lives alone: No Alcohol intake: current Alcohol intake frequency: holidays/special occasions only Alcohol type: wine Patient Tobacco Use Status: Never used Tobacco e-Cigarette/Vaping Use: Never Used Second Hand Smoke Exposure: No Current occupational status: employed Review of Systems Const Details: Negative for appetite change, weight change, fever, chills, malaise and fatigue Eyes Details: Negative for vision change, dry eyes,headaches and dizziness ENT Details: Negative for hearing change, tinnitus, oral ulcer, nose bleeds and oral dryness. Card Details: Negative chest pain, edema and syncope Resp Details: Negative for SOB, cough and wheezing GI Details: Negative indigestion/heartburn, nausea, abdominal pain, bowel changes, diarrhea, constipation and bloody stool. Skin/Breast Details: Negative for itching, rash, hives, Raynaud's symptoms, sun sensitivity, and skin cancer Neuro Details: Negative for epilepsy, palsy, stroke, changes in speech, tingling and weakness Psych Details: Negative for anxiety, depression and stress Endo Details: Negative for polyuria and polydypsia Davy/Lymph Details: Iron deficiency anemia due to heavy periods as noted above. Otherwise negative for excessive bruising or bleeding. Physical Exam Vital Signs: Last Vital Signs Temp 97 F 06/03/23 12:00 Pulse 67 06/03/23 12:00 BP 130/70 06/03/23 12:00 Pulse Ox 99 06/03/23 12:00 Oxygen Delivery Method Room Air 06/03/23 12:00 BMI result Body Mass Index 28.3 APPEARANCE: Patient in no acute distress YES no redness, pupils equal and reactive to light, eyelids normal THROAT:? Oral mucosa moist, no ulcerations NECK:? No thyromegaly or masses, no adenopathy, trachea midline. HEART:? Regulrar rhythm, S1-S2 heard, no murmurs, rubs or gallops. LUNG:? Clear to percussion and auscultation ABD:? Normal bowel sounds, no organomegaly, masses or tenderness. EXTREMITIES:? No edema, no calf tenderness, normal peripheral pulses. NEURO:? Oriented and alert x3.? No focal weakness.? Reflexes symmetric.? Gait normal. SKIN:? She has multiple areas of hair thinning on the scalp but no significant cutaneous lesions. Elsewhere the skin has no inflammatory or neoplastic lesions.? The fingertips and toes showed no evidence of Raynaud's phenomena. JOINT EXAM:? Normal pain-free range of motion in the neck and shoulders. No other areas of joint pain, tenderness or swelling. Results Reviewed Results Reviewed: Laboratory Tests 03/19/23 03/19/23 04/24/23 12:55 12:55 10:23 Hgb 8.6 L Plt Count 287 Creatinine C-Reactive Protein 0.35 Double Strand DNA Ab 2 Complement C3 127 Complement C4 20 04/24/23 10:23 Hgb Plt Count Creatinine 0.67 C-Reactive Protein Double Strand DNA Ab Complement C3 Complement C4 Laboratory Tests 03/19/23 04/24/23 04/24/23 12:55 10:23 10:23 WBC 2.8 L 2.4 L Hgb 10.9 L 8.6 L Plt Count 287 Laboratory Tests 03/28/23 03/28/23 04/24/23 12:43 12:43 10:23 Lymph # (Auto) 0.8 L 0.9 L Absolute Neuts (auto) 1.5 L 04/24/23 10:23 Lymph # (Auto) Absolute Neuts (auto) 1.2 L Assessment & Plan Assessment & Plan (1) Iron deficiency anemia: Comment: fall 2020; intravenous iron begun January 2023. 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 residual memory deficits. Workup with CT angiogram of the head and neck was normal. 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 CSF showed no leukocytosis, normal protein, slightly elevated IgG., studies for lupus anticoagulant and anti cardiolipin antibodies were negative. Code(s): Z86.73 - Personal history of transient ischemic attack (TIA), and cerebral infarction without residual deficits (4) Systemic lupus: Comment: 2016 - initially saw Dr. Stevenson at [place] Alopecia, arthralgia, mild leukopenia Plaquenil since 2016. Eye exam December,, December 2020, summer: anti DNA, C3, C4 normal. Anti- COURT BAILIFF and anti-Sm elevated Code(s): M32.9 - Systemic lupus erythematosus, unspecified Plan Presently I do not see activity of the SLE that is apparent. We will recheck the complement levels, anti DNA levels and acute phase reactants as well as a urine protein/creatinine ratio. I do not detect neurologic findings that would indicate she has had any significant persisting neurologic deficit from the CVA. She will stay with the hydroxychloroquine as above. I gave her a copy of the lab work from [facility] that we had concerns about, the elevated factor 8 level. I asked her to bring that to the attention of her panel wirer. She sees the panel wirer later on today. We will schedule Rheumatology follow-up in the about 4 months. Orders: Orders Complement C3 Today M32.9 - Systemic lupus erythematosus, unspecified Protein Creatinine Ratio, Ur Today M32.9 - Systemic lupus erythematosus, unspecified Creatinine Today M32.9 - Systemic lupus erythematosus, unspecified Erythrocyte Sedimentation Rate Today M32.9 - Systemic lupus erythematosus, unspecified Anti DNA DS Antibody Today M32.9 - Systemic lupus erythematosus, unspecified Complement C4 Today M32.9 - Systemic lupus erythematosus, unspecified C Reactive Protein Today M32.9 - Systemic lupus erythematosus, unspecified Coding Level of Care Code Est Pt Level 4 (36851) Diagnoses Iron deficiency anemia D50.9 Long-term use of hydroxychloroquine Z79.899 History of CVA (cerebrovascular accident) Z86.73 Systemic lupus M32.9
[2023-06-03 12:00] VITALS: BP 130/70; PULSE 67; TEMP 36.1; O2SAT 99; BMI 28.3
== END 2023-06-03 12:23 | disposition home or self-care (01) ==
PROVIDERS: Visit Provider Internal Medicine Rheumatology
DX: D50.9 Iron deficiency anemia, unspecified (principal); Z79.899 Other long term (current) drug therapy; Z86.73 Personal history of transient ischemic attack (TIA), and cerebral infarction without residual deficits; M32.9 Systemic lupus erythematosus, unspecified
CPT/HCPCS: 99214

== ENCOUNTER → 2023-06-03 11:49 | Outpatient (BNVA) | payer OTHER, SELFPAY | PROVIDERS: Visit Provider Internal Medicine Rheumatology ==

== ENCOUNTER 2023-07-04 14:00 | Outpatient (REF) | payer OTHER, SELFPAY | END 2023-07-04 14:01 | disposition home or self-care (01) | LOC: HO.MDS 14:00 | PROVIDERS: Visit Provider Internal Medicine Medical Oncology | DX: D50.9 Iron deficiency anemia, unspecified (principal) | CPT/HCPCS: 96365; J1756 ==

== ENCOUNTER 2023-07-11 13:26 | Outpatient (REF) | payer OTHER, SELFPAY ==
[2023-07-11 14:35] LABS: MANUAL DIFF FLAG NO
[2023-07-11 14:38] LABS: Basophils Percent Auto 0.3 % (0-2); Eosinophils Absolute Auto 0.1 X10*3/uL (0.0-0.4); Eosinophils Percent Auto 3.4 % (0-4); Hemoglobin 10.6 g/dl (12.0-16.0); Lymphocytes Absolute Auto 1.3 X10*3/uL (1.2-4.9); Lymphocytes Percent Auto 38.5 % (20-40); Mean Corpuscular HGB Conc 31.2 g/dl (31.0-35.0); Mean Corpuscular Hemoglobin 24.9 pg (27.0-33.0); Mean Corpuscular Volume 79.8 fL (80.0-98.0); Monocytes Absolute Auto 0.4 X10*3/uL (0.1-1.2); Monocytes Percent Auto 13.2 % (2-11); Neutrophils Absolute Auto 1.5 x10*3/uL (2.0-8.3); Neutrophils Percent Auto 44.6 % (45-73); Platelet Count 282 X10*3/uL (160-400); Red Blood Count 4.26 X10*6/uL (4.20-5.50); Red Cell Distribution Width 17.2 % (11.0-16.0); White Blood Count 3.3 X10*3/uL (4.8-10.8)
== END 2023-07-11 13:27 | disposition home or self-care (01) ==
LOC: HO.MDS 13:26
PROVIDERS: Visit Provider Internal Medicine Medical Oncology
DX: D50.9 Iron deficiency anemia, unspecified (principal)
CPT/HCPCS: 36415; 85025; 96365; J1756

== ENCOUNTER 2023-07-17 15:29 | Outpatient (REF) | payer OTHER, SELFPAY | END 2023-07-17 15:30 | disposition home or self-care (01) | LOC: HO.MDS 15:29 | PROVIDERS: Visit Provider Internal Medicine Medical Oncology | DX: D50.9 Iron deficiency anemia, unspecified (principal) | CPT/HCPCS: 96365; J1756 ==

== ENCOUNTER 2023-07-25 11:36 | Outpatient (REF) | payer OTHER, SELFPAY | END 2023-07-25 11:37 | disposition home or self-care (01) | LOC: HO.MDS 11:36 | PROVIDERS: Visit Provider Internal Medicine Medical Oncology | DX: D50.9 Iron deficiency anemia, unspecified (principal) | CPT/HCPCS: 96365; J1756 ==

== ENCOUNTER 2023-08-08 11:29 | Outpatient (REF) | payer OTHER, SELFPAY | END 2023-08-08 11:30 | disposition home or self-care (01) | LOC: HO.MDS 11:29 | PROVIDERS: Visit Provider Internal Medicine Medical Oncology | DX: D50.9 Iron deficiency anemia, unspecified (principal) | CPT/HCPCS: 96365; J1756 ==

== ENCOUNTER 2023-08-15 11:58 | Outpatient (REF) | payer OTHER, SELFPAY ==
[2023-08-15 12:23] LABS: MANUAL DIFF FLAG NO
[2023-08-15 12:26] LABS: Basophils Percent Auto 0.5 % (0-2); Eosinophils Absolute Auto 0.1 X10*3/uL (0.0-0.4); Eosinophils Percent Auto 2.4 % (0-4); Hematocrit 31.7 % (37.0-47.0); Hemoglobin 9.9 g/dl (12.0-16.0); Lymphocytes Absolute Auto 1.2 X10*3/uL (1.2-4.9); Lymphocytes Percent Auto 32.3 % (20-40); Mean Corpuscular HGB Conc 31.2 g/dl (31.0-35.0); Mean Corpuscular Hemoglobin 25.9 pg (27.0-33.0); Mean Platelet Volume 9.8 fL (9.4-12.3); Monocytes Absolute Auto 0.4 X10*3/uL (0.1-1.2); Monocytes Percent Auto 9.3 % (2-11); Neutrophils Absolute Auto 2.1 x10*3/uL (2.0-8.3); Neutrophils Percent Auto 55.5 % (45-73); Platelet Count 231 X10*3/uL (160-400); Red Blood Count 3.82 X10*6/uL (4.20-5.50); Red Cell Distribution Width 17.2 % (11.0-16.0); White Blood Count 3.8 X10*3/uL (4.8-10.8)
== END 2023-08-15 11:59 | disposition home or self-care (01) ==
LOC: HO.MDS 11:58
PROVIDERS: Visit Provider Internal Medicine Medical Oncology
DX: D50.9 Iron deficiency anemia, unspecified (principal)
CPT/HCPCS: 36415; 85025; 96365; J1756

== ENCOUNTER 2023-10-02 13:03 | Outpatient (AMB) | payer OTHER, SELFPAY ==
--- NOTE | 2023-10-02 13:10 | MHC.OFFVIS ---
Intake Vital Signs 10/02/23 13:11 Height 5 ft 7 in Weight 191 lb 12.835 oz BMI 30.0 BP 116/60 Blood Pressure Location Rt brachial Position Sitting Pulse 80 Pulse Source Pulse Oximeter Pulse Oximetry (%) 99 Oxygen Delivery Method Room Air Intake Visit Reasons: sle Intake Note: Patient last seen by Dr Campos on 06/03/23 presents today for follow up. Reports she recently saw her sizing machine operator at [facility] and was told she has protein in urine Medical Service Technician Required: No Accompanied by: Self / Same As Patient Allergies No Known Allergies Allergy (Verified 10/02/23 13:12) Medication List - Last Reconciled 10/02/23 by Lai Treviño MD aspirin 81 mg PO DAILY cholecalciferol (vitamin D3) 25 mcg PO DAILY ferrous sulfate 325 mg PO DAILY hydroxychloroquine (Plaquenil) 200 mg PO BID multivitamin 1 tab PO DAILY norethindrone acetate 5 mg PO DAILY vitamin B complex (B Complex-Vitamin B12 tablet) 1 tab PO DAILY HPI HPI Comments History of Present Illness Details This is a 42-year-old female who presents for evaluation of SLE. She states that she has been doing fairly well. Except for symptoms of a head cold that started a few days ago. She is currently on her period. She states that she was recently evaluated by her sizing machine operator and was told that she has protein in the urine. She states that she had extensive testing by the sizing machine operator and no hypercoagulable order was found. Last year when she was found to have a stroke, 2D echo showed possible interatrial septum aneurysm however according to patient the transesophageal echo was unremarkable. She also had CT arterial and venogram of her head which were unremarkable. Patient stated that when initially diagnosed with lupus around 2018 she was started on hydroxychloroquine Twice daily. Last year it was reduced to 1 tab daily. Afterwards she was having a headache and workup eventually showed an old stroke. It does not look like patient had any neurological deficits. Hydroxychloroquine was increased back to 2 tabs daily. She stated that since she started hydroxychloroquine in 2018 the hair loss and skin rashes have improved. She states that she might be going back for another fibroid surgery as she continues to have significant menstrual bleeding. Has no other complaints today Most recent history by Dr. Campos 05/2023: The patient returns for evaluation of her SLE in the setting of history of old stroke. In general she has been feeling okay with no joint pains or rashes. The headaches have not returned. She has no chest pain, oral ulcers or abdominal pains. She is seeing hematology and traveling operator about iron deficiency anemia due to heavy menstrual bleeding. She has an IUD in place currently. She thinks that might have helped somewhat but she still is requiring IV iron infusions. She remains on hydroxychloroquine 200 b.i.d., aspirin 81 mg daily, vitamin-D daily, and a B complex vitamin daily. She says that she had an eye exam for monitoring her hydroxychloroquine use during the summer and it was okay. She is currently working full-time from home. She has a cardiology appointment at [facility] to comment on the finding of the small aneurysm in the atrial septum and whether that might be contributing to her CVA risk. There was also a hematology referral supposed to have been done at [facility] because of an elevated factor 8 level. She does not have an appointment for that yet. [facility] Medical History Iron deficiency anemia Surgical History H/O myomectomy Family History Father Diabetes Mother Breast cancer Maternal Grandmother Breast cancer Social History Household Members Other:: lives alone Housing: Condominium Are you a primary personal caregiver to a significant other at home: No Do you presently have visiting nurse or other home services: No 75 years or older and lives alone: No Alcohol intake: current Alcohol intake frequency: holidays/special occasions only Alcohol type: wine Patient Tobacco Use Status: Never used Tobacco e-Cigarette/Vaping Use: Never Used Second Hand Smoke Exposure: No Current occupational status: employed Female Reproductive History Menstrual Total pregnancies: 0 Review of Systems ENT Details: Nasal congestion, runny nose Physical Exam Vital Signs: Last Vital Signs Pulse 80 10/02/23 13:11 BP 116/60 10/02/23 13:11 Pulse Ox 99 10/02/23 13:11 Oxygen Delivery Method Room Air 10/02/23 13:11 BMI result Body Mass Index 30.0 Const General: cooperative, healthy appearing and comfortable Nutritional Appearance: overweight Orientation/consciousness: patient oriented x3 Limitations: no limitations HEENT Head: Yes normocephalic and Yes atraumatic Mouth: moist mucous membranes Resp Effort & Inspection: normal respiratory effort and able to speak in complete sentences Auscultation: clear to auscultation bilaterally Cardio Rate: regular rate Rhythm: regular rhythm Skin Other: Mild hypopigmentation inside of right ear Neuro General: patient oriented x3 Extrem Other: No active synovitis Normal nailfold capillaroscopy Assessment & Plan Assessment & Plan (1) Systemic lupus: Comment: 2017 - initially saw Dr. Stevenson at [place] Alopecia, arthralgia, mild leukopenia Plaquenil since 2016. Eye exam December,, December 2020, summer: anti DNA, C3, C4 normal. Anti- MAIL COURIER and anti-Sm elevated Code(s): M32.9 - Systemic lupus erythematosus, unspecified Plan: This is a 42-year-old female with SLE who presents for follow-up. This is her 1st visit with me. She used to follow-up with Dr. Campos. Patient stated that she was told by her sizing machine operator that she was found to have protein in the urine recently. Patient is having symptoms of a head cold and is on her period currently. Advised patient to get SLE activity labs including urine assessment 2-3 weeks from today and follow-up with me in 6 weeks Continue hydroxychloroquine 200 mg Twice daily (2) History of CVA (cerebrovascular accident): Comment: Right frontal lobe encephalomalacia seen on MRI 11/2022 probable old CVA; ? residual memory deficits. Workup with CT angiogram of the head and neck was normal. 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 Per patient subsequent JOSE D was negative. CSF showed no leukocytosis, normal protein, slightly elevated IgG., studies for lupus anticoagulant and anti cardiolipin antibodies were negative. Code(s): Z86.73 - Personal history of transient ischemic attack (TIA), and cerebral infarction without residual deficits Plan: Continue with baby aspirin Will request records from patient's sizing machine operator (3) Long-term use of hydroxychloroquine: Code(s): Z79.899 - Other senior care (current) drug therapy Plan: Patient states that see yearly eye exam. Continue to follow-up regularly with Ophthalmology Plan I spent 62 minutes reviewing patient's chart, evaluating patient, ordering diagnostic workup, counseling patient and documenting in the chart Orders: Orders Complement C3 2 Weeks M32.9 - Systemic lupus erythematosus, unspecified Complement C4 2 Weeks M32.9 - Systemic lupus erythematosus, unspecified C Reactive Protein 2 Weeks M32.9 - Systemic lupus erythematosus, unspecified Complete Blood Count Auto Diff 2 Weeks M32.9 - Systemic lupus erythematosus, unspecified Protein Electrophoresis, Serum 2 Weeks M32.9 - Systemic lupus erythematosus, unspecified Hepatitis A,B,C Profile 2 Weeks Z11.59 - Encounter for screening for other viral diseases Anti DNA DS Antibody 2 Weeks M32.9 - Systemic lupus erythematosus, unspecified DNA Double Stranded-Crithidia 2 Weeks M32.9 - Systemic lupus erythematosus, unspecified Erythrocyte Sedimentation Rate 2 Weeks M32.9 - Systemic lupus erythematosus, unspecified Protein Creatinine Ratio, Ur 2 Weeks M32.9 - Systemic lupus erythematosus, unspecified Sjogren's Antibodies 2 Weeks M32.9 - Systemic lupus erythematosus, unspecified UA w Microscopic 2 Weeks M32.9 - Systemic lupus erythematosus, unspecified Comprehensive Met. Panel 2 Weeks M32.9 - Systemic lupus erythematosus, unspecified Immunofixation Pnl, Serum 2 Weeks M32.9 - Systemic lupus erythematosus, unspecified T Spot TB 2 Weeks Z11.7 - Encounter for testing for latent tuberculosis infection Thiopurine Methyltransferase 2 Weeks Z51.81 - Encounter for therapeutic drug level monitoring, Z79.624 - adding machine servicer (current) use of inhibitors of nucleotide synthesis Coding Level of Care Code Est Pt Level 5 (96670) Diagnoses Systemic lupus M32. History of CVA (cerebrovascular accident) Z86.73 Long-term use of hydroxychloroquine Z79.899
[2023-10-02 13:11] VITALS: BP 116/60; PULSE 80; O2SAT 99
== END 2023-10-02 13:40 | disposition home or self-care (01) ==
PROVIDERS: Visit Provider Student in an Organized Health Care Education/Training Program
DX: M32.9 Systemic lupus erythematosus, unspecified (principal); Z86.73 Personal history of transient ischemic attack (TIA), and cerebral infarction without residual deficits; Z79.899 Other long term (current) drug therapy
CPT/HCPCS: 99215

== ENCOUNTER → 2023-10-02 13:03 | Outpatient (BNVA) | payer OTHER, SELFPAY | PROVIDERS: Visit Provider Student in an Organized Health Care Education/Training Program ==

== ENCOUNTER 2023-11-10 12:23 | Outpatient (REF) | payer OTHER, SELFPAY ==
[2023-11-10 12:54] LABS: MANUAL DIFF FLAG NO
[2023-11-10 13:39] LABS: Basophils Percent Auto 0.2 % (0-2); Eosinophils Absolute Auto 0.1 X10*3/uL (0.0-0.4); Eosinophils Percent Auto 1.9 % (0-4); Hematocrit 33.4 % (37.0-47.0); Hemoglobin 10.4 g/dl (12.0-16.0); Imm Gran Abs Auto 0.01 X10*3/uL (0.00-0.03); Imm Gran Pct Auto 0.2 % (0.0-0.4); Lymphocytes Absolute Auto 1.1 X10*3/uL (1.2-4.9); Lymphocytes Percent Auto 23.4 % (20-40); Mean Corpuscular HGB Conc 31.1 g/dl (31.0-35.0); Mean Corpuscular Volume 80.3 fL (80.0-98.0); Mean Platelet Volume 11.6 fL (9.4-12.3); Monocytes Absolute Auto 0.5 X10*3/uL (0.1-1.2); Monocytes Percent Auto 9.9 % (2-11); Neutrophils Absolute Auto 3.1 x10*3/uL (2.0-8.3); Neutrophils Percent Auto 64.4 % (45-73); Platelet Count 306 X10*3/uL (160-400); Red Blood Count 4.16 X10*6/uL (4.20-5.50); Red Cell Distribution Width 14.8 % (11.0-16.0); White Blood Count 4.8 X10*3/uL (4.8-10.8)
[2023-11-10 14:16] LABS: Erythrocyte Sedimentation Rate 33 MM/HR (0-20)
[2023-11-10 14:19] LABS: Alanine Aminotransferase 12 U/L (0-31); Albumin Level 3.8 g/dL (3.5-5.0); Alkaline Phosphatase 48 U/L (39-117); Anion Gap 11 (12-20); Aspartate Amino Transferase 17 U/L (5-31); Bilirubin Total 0.1 mg/dL (0.0-1.0); Blood Urea Nitrogen 12 mg/dL (9-16); C Reactive Protein 1.67 mg/dL (< or = 0.50); Calcium 9.1 mg/dL (8.4-10.2); Carbon Dioxide 24 mmol/L (22-29); Chloride 106 mmol/L (96-108); Estimated Glomerular Filt Rate > 60; Glucose Random 85 mg/dL (60-115); Sodium 137 mmol/L (135-145); Total Protein 7.8 g/dL (6.5-8.0)
[2023-11-11 09:44] LABS: HBc Num1 0.12 S/CO (0.00-0.79); HBsAGNum1 0.28 S/CO (0.00-0.99); Hepatitis A Antibody IgM 0.13 Index (0-0.79); Hepatitis B Core Antibody Nonreactive (Nonreactive); Hepatitis B Surface Antigen Negative (Negative); ~Hepatitis A Antibody IgM Nonreactive (Nonreactive); ~Hepatitis B Surface Antibody NONREACTIVE (Nonreactive); ~Hepatitis C Antibody Nonreactive (Nonreactive)
[2023-11-11 19:09] LABS: Anti DNA DS Antibody 1 IU/mL; Antibody to SS-A Antigen >8.0 POS AI (<1.0 NEG); Antibody to SS-B Antigen <1.0 NEG AI (<1.0 NEG)
[2023-11-11 23:13] LABS: Prot Elec - Albumin 3.6 g/dL (3.8-4.8); Prot Elec - Alpha1 0.4 g/dL (0.2-0.3); Prot Elec - Alpha2 0.7 g/dL (0.5-0.9); Prot Elec - Beta 1 0.4 g/dL (0.4-0.6); Prot Elec - Beta 2 0.4 g/dL (0.2-0.5); Prot Elec - Gamma 1.8 g/dL (0.8-1.7); Prot Elec - Total Protein 7.4 g/dL (6.1-8.1)
[2023-11-12 08:54] LABS: Complement C3 127 mg/dL (83-193)
[2023-11-12 18:13] LABS: IgA 282 mg/dL (47-310); IgG 2170 mg/dL (600-1640); IgM 123 mg/dL (50-300)
[2023-11-13 08:04] LABS: TS Negative Control Passed; TS Panel A 0; TS Panel B 0; TS Positive Control Passed; TSpotTB Negative (Negative)
[2023-11-16 11:24] LABS: DNAds, Crithidia Antibody Negative (Negative)
[2023-11-22 16:44] LABS: TPMT Activity 16
== END 2023-11-10 12:24 | disposition home or self-care (01) ==
LOC: HO.LAB 12:23
PROVIDERS: Visit Provider Student in an Organized Health Care Education/Training Program
DX: M32.9 Systemic lupus erythematosus, unspecified (principal); Z11.59 Encounter for screening for other viral diseases; Z11.7 Encounter for testing for latent tuberculosis infection; Z51.81 Encounter for therapeutic drug level monitoring; Z79.624 Long term (current) use of inhibitors of nucleotide synthesis
CPT/HCPCS: 36415; 80053; 82784; 84165; 84433; 85025; 85652; 86140; 86160; 86225; 86235; 86255; 86334; 86481; 86704; 86706; 86709; 86803; 87340

== ENCOUNTER 2023-12-02 12:46 | Outpatient (REF) | payer OTHER, SELFPAY ==
[2023-12-02 14:05] LABS: Appearance Urine Clear; Color Urine Yellow; Glucose Urine UA Negative (Negative); Leukocyte Esterase Urine Small (1+) (Negative); Nitrite Urine Negative (Negative); Specific Gravity - Urine 1.015 (1.005-1.025); UMIC TRIGGER UA YES; Urine Blood Negative (Negative); Urine Ketones Trace mg/dL (Negative); Urine Protein Negative (Neg-Trace)
[2023-12-02 14:08] LABS: Bacteria Urine 3+ (None Seen); Hyaline Casts Urine 0-2 /LPF (0-2); RBC Urine 0-2 /HPF (0-2)
[2023-12-02 14:25] LABS: Creatinine Urine 160.15 mg/dL; Total Protein Urine Random < 7 mg/dL (<12)
== END 2023-12-02 12:47 | disposition home or self-care (01) ==
LOC: HO.LAB 12:46
PROVIDERS: Visit Provider Student in an Organized Health Care Education/Training Program
DX: M32.9 Systemic lupus erythematosus, unspecified (principal)
CPT/HCPCS: 81001; 82570; 84156

== ENCOUNTER 2023-12-02 12:46 | Outpatient (AMB) | payer OTHER, SELFPAY ==
--- NOTE | 2023-12-02 12:55 | MHC.OFFVIS ---
Vital Signs 12/02/23 12:56 Height 5 ft 8 in Weight 194 lb 0.108 oz BMI 29.5 BP 108/64 Blood Pressure Location Rt brachial Position Sitting Pulse 79 Pulse Source Pulse Oximeter Pulse Oximetry (%) 99 Oxygen Delivery Method Room Air Intake Visit Reasons: SLE Intake Note: Patient last seen 10/02/23 presents today for follow up and test results. Life Enrichment Director Required: No Accompanied by: Self / Same As Patient Allergies No Known Allergies Allergy (Verified 12/02/23 12:56) Medication List - Last Reconciled 12/02/23 by Lai Treviño MD aspirin 81 mg PO DAILY cholecalciferol (vitamin D3) 25 mcg PO DAILY ferrous sulfate 325 mg PO DAILY hydroxychloroquine (Plaquenil) 200 mg PO BID multivitamin 1 tab PO DAILY norethindrone acetate 5 mg PO DAILY vitamin B complex (B Complex-Vitamin B12 tablet) 1 tab PO DAILY HPI Comments Details: 43-year-old female with SLE returns for follow-up. Remains on hydroxychloroquine 200 mg Twice daily. She has not been able to do her urine testing as she was having vaginal bleeds. She states that she has fibroids and she is planning to get them removed soon. She has no longer any blood in the urine. She will do the urine testing today. She states that she feels about the same overall. She denies any headaches, skin rashes, fevers, swollen joints, mouth ulcers, hair loss. Initial history with ga 09/2023: This is a 42-year-old female who presents for evaluation of SLE. She states that she has been doing fairly well. Except for symptoms of a head cold that started a few days ago. She is currently on her period. She states that she was recently evaluated by her organic section technical lead and was told that she has protein in the urine. She states that she had extensive testing by the organic section technical lead and no hypercoagulable order was found. Last year when she was found to have a stroke, 2D echo showed possible interatrial septum aneurysm however according to patient the transesophageal echo was unremarkable. She also had CT arterial and venogram of her head which were unremarkable. Patient stated that when initially diagnosed with lupus around 2018 she was started on hydroxychloroquine Twice daily. Last year it was reduced to 1 tab daily. Afterwards she was having a headache and workup eventually showed an old stroke. It does not look like patient had any neurological deficits. Hydroxychloroquine was increased back to 2 tabs daily. She stated that since she started hydroxychloroquine in 2018 the hair loss and skin rashes have improved. She states that she might be going back for another fibroid surgery as she continues to have significant menstrual bleeding. Has no other complaints today [facility] Medical History Iron deficiency anemia Surgical History H/O myomectomy Family History Father Diabetes Mother Breast cancer Maternal Grandmother Breast cancer Social History Household Members Other:: lives alone Housing: Condominium Are you a primary nursing care attendant to a significant other at home: No Do you presently have visiting nurse or other home services: No 75 years or older and lives alone: No Alcohol intake: current Alcohol intake frequency: holidays/special occasions only Alcohol type: wine Patient Tobacco Use Status: Never used Tobacco e-Cigarette/Vaping Use: Never Used Second Hand Smoke Exposure: No Current occupational status: employed Female Reproductive History Menstrual Total pregnancies: 0 Review of Systems Const Reports fatigue, Denies fever(s) and Denies headache(s) ENT Denies headache(s) Musc Denies arthralgias and Denies joint swelling Skin/Breast Denies rash Neuro Denies headache(s) Endo Reports fatigue Physical Exam Const General: cooperative, healthy appearing and comfortable Nutritional Appearance: overweight Orientation/consciousness: patient oriented x3 Limitations: no limitations HEENT Head: Yes normocephalic and Yes atraumatic Mouth: moist mucous membranes Resp Effort & Inspection: normal respiratory effort and able to speak in complete sentences Auscultation: clear to auscultation bilaterally Cardio Rate: regular rate Rhythm: regular rhythm Skin Other: Mild hypopigmentation inside of right ear Neuro General: patient oriented x3 Extrem Other: No active synovitis Normal nailfold capillaroscopy Assessment & Plan Assessment & Plan (1) Systemic lupus: Comment: dx 2017 (Alopecia, arthralgia, mild leukopenia, ?CVA related to SLE +++Cho +++POWER REACTOR OPERATOR +++SSa) Plaquenil since 2017. Eye exam [place] December2019, December 2020, summer 2022 Code(s): M32.9 - Systemic lupus erythematosus, unspecified Category: Medical Plan: This is a 43-year-old female with SLE who presents for follow-up. On hydroxychloroquine 200 mg Twice daily On physical exam I do not see any signs suggestive of active SLE. 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 Patient has not been able to do her urine testing due to vaginal and urinary bleeding related to her fibroids. This has resolved. Will check her urine today. Would continue to watch patient on hydroxychloroquine 200 mg Twice daily Labs before next visit in 3 months (2) History of CVA (cerebrovascular accident): Comment: Right frontal lobe encephalomalacia seen on MRI 11/2022 probable old CVA; ? residual memory deficits. Workup with CT angiogram of the head and neck was normal. 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 Per patient subsequent JOSE D was negative. CSF showed no leukocytosis, normal protein, slightly elevated IgG., studies for lupus anticoagulant and anti cardiolipin antibodies were negative. 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 Continue to follow-up regularly with Ophthalmology Plan I spent 25 minutes reviewing patient's chart, evaluating patient, ordering diagnostic workup, counseling patient and documenting in the chart Orders: Orders Anti DNA DS Antibody 3 Months M32.9 - Systemic lupus erythematosus, unspecified UA w Microscopic 3 Months M32.9 - Systemic lupus erythematosus, unspecified Complete Blood Count Auto Diff 3 Months M32.9 - Systemic lupus erythematosus, unspecified Comprehensive Met. Panel 3 Months M32.9 - Systemic lupus erythematosus, unspecified Complement C3 3 Months M32.9 - Systemic lupus erythematosus, unspecified C Reactive Protein 3 Months M32.9 - Systemic lupus erythematosus, unspecified Erythrocyte Sedimentation Rate 3 Months M32.9 - Systemic lupus erythematosus, unspecified Protein Creatinine Ratio, Ur 3 Months M32.9 - Systemic lupus erythematosus, unspecified Coding Level of Care Code Est Pt Level 4 (95554) Diagnoses Systemic lupus M32.9 History of CVA (cerebrovascular accident) Z86.73 Long-term use of hydroxychloroquine Z79.899
[2023-12-02 12:56] VITALS: BP 108/64; PULSE 79; O2SAT 99; BMI 29.5
== END 2023-12-02 13:04 | disposition home or self-care (01) ==
PROVIDERS: Visit Provider Student in an Organized Health Care Education/Training Program
DX: M32.9 Systemic lupus erythematosus, unspecified (principal); Z86.73 Personal history of transient ischemic attack (TIA), and cerebral infarction without residual deficits; Z79.899 Other long term (current) drug therapy
CPT/HCPCS: 99214

== ENCOUNTER 2024-03-01 12:11 | Outpatient (REF) | payer OTHER, SELFPAY ==
[2024-03-01 12:33] LABS: MANUAL DIFF FLAG NO
[2024-03-01 13:08] LABS: Basophils Percent Auto 0.4 % (0-2); Eosinophils Absolute Auto 0.1 X10*3/uL (0.0-0.4); Eosinophils Percent Auto 2.6 % (0-4); Hematocrit 40.9 % (37.0-47.0); Hemoglobin 13.1 g/dl (12.0-16.0); Lymphocytes Absolute Auto 0.9 X10*3/uL (1.2-4.9); Lymphocytes Percent Auto 33.7 % (20-40); Mean Corpuscular Hemoglobin 24.8 pg (27.0-33.0); Mean Corpuscular Volume 77.3 fL (80.0-98.0); Mean Platelet Volume 12.1 fL (9.4-12.3); Monocytes Absolute Auto 0.4 X10*3/uL (0.1-1.2); Monocytes Percent Auto 12.8 % (2-11); Neutrophils Absolute Auto 1.4 x10*3/uL (2.0-8.3); Neutrophils Percent Auto 50.5 % (45-73); Platelet Count 275 X10*3/uL (160-400); Red Blood Count 5.29 X10*6/uL (4.20-5.50); Red Cell Distribution Width 15.7 % (11.0-16.0); White Blood Count 2.7 X10*3/uL (4.8-10.8)
[2024-03-01 13:26] LABS: Appearance Urine Clear; Color Urine Yellow; Glucose Urine UA Negative (Negative); Leukocyte Esterase Urine Moderate (2+) (Negative); Nitrite Urine Negative (Negative); Specific Gravity - Urine 1.015 (1.005-1.025); UMIC TRIGGER UA YES; Urine Blood Trace (Negative); Urine Ketones Negative (Negative); Urine Protein Trace mg/dL (Neg-Trace)
[2024-03-01 13:41] LABS: Bacteria Urine None Seen (None Seen); Hyaline Casts Urine 0-2 /LPF (0-2); RBC Urine 0-2 /HPF (0-2); Squamous Epithelial Cell Urine 0-2 /HPF (0-2); WBC Urine 0-5 /HPF (0-5)
[2024-03-01 13:55] LABS: Alanine Aminotransferase 18 U/L (0-31); Albumin Level 3.8 g/dL (3.5-5.0); Alkaline Phosphatase 51 U/L (39-117); Anion Gap 11 (12-20); Aspartate Amino Transferase 22 U/L (5-31); Bilirubin Total 0.4 mg/dL (0.0-1.0); Blood Urea Nitrogen 8 mg/dL (9-16); Calcium 9.3 mg/dL (8.4-10.2); Carbon Dioxide 23 mmol/L (22-29); Chloride 106 mmol/L (96-108); Estimated Glomerular Filt Rate > 60; Glucose Random 77 mg/dL (60-115); Potassium 4.3 mmol/L (3.3-5.1); Sodium 136 mmol/L (135-145); Total Protein 8.2 g/dL (6.5-8.0)
[2024-03-01 14:06] LABS: Erythrocyte Sedimentation Rate 21 MM/HR (0-20)
[2024-03-01 14:13] LABS: Creatinine Urine 135.41 mg/dL; Protein/Creatinine Ratio, Ur 0.07 (<0.2); Total Protein Urine Random 9 mg/dL (<12)
[2024-03-02 10:43] LABS: Complement C3 111 mg/dL (83-193)
[2024-03-02 17:13] LABS: Anti DNA DS Antibody 1 IU/mL
== END 2024-03-01 12:12 | disposition home or self-care (01) ==
LOC: HO.LAB 12:11
PROVIDERS: Visit Provider Student in an Organized Health Care Education/Training Program
DX: M32.9 Systemic lupus erythematosus, unspecified (principal)
CPT/HCPCS: 36415; 80053; 81001; 82570; 84156; 85025; 85652; 86140; 86160; 86225

== ENCOUNTER 2024-03-09 13:42 | Outpatient (AMB) | payer OTHER, SELFPAY ==
--- NOTE | 2024-03-09 13:59 | MHC.OFFVIS ---
Vital Signs 03/09/24 14:01 Height 5 ft 8 in Weight 205 lb 11.06 oz BMI 31.3 BP 120/72 Blood Pressure Location Rt brachial Position Sitting Pulse 80 Pulse Source Pulse Oximeter Pulse Oximetry (%) 98 Oxygen Delivery Method Room Air Intake Visit Reasons: SLE Intake Note: Patient presents for SLE. Allergies No Known Allergies Allergy (Verified 03/09/24 14:01) Medication List - Last Reconciled 03/09/24 by Lai Treviño MD aspirin 81 mg PO DAILY cholecalciferol (vitamin D3) 25 mcg PO DAILY ferrous sulfate 325 mg PO DAILY hydroxychloroquine (Plaquenil) 200 mg PO BID multivitamin 1 tab PO DAILY norethindrone acetate 5 mg PO DAILY vitamin B complex (B Complex-Vitamin B12 tablet) 1 tab PO DAILY HPI Comments Details: 43-year-old female with SLE returns for follow-up. Remains on hydroxychloroquine 200 mg Twice daily. She states that she sometimes forgets her night dose. S She states that she feels about the same overall. She denies any headaches, fevers, skin rashes, swollen joints, mouth ulcers, hair loss. She is on nor if ingrown by OBGYN for heavy menstruation related to fibroids. It has been effective Initial history with me 09/2023: This is a 42-year-old female who presents for evaluation of SLE. She states that she has been doing fairly well. Except for symptoms of a head cold that started a few days ago. She is currently on her period. She states that she was recently evaluated by her wool classer and was told that she has protein in the urine. She states that she had extensive testing by the wool classer and no hypercoagulable order was found. Last year when she was found to have a stroke, 2D echo showed possible interatrial septum aneurysm however according to patient the transesophageal echo was unremarkable. She also had CT arterial and venogram of her head which were unremarkable. Patient stated that when initially diagnosed with lupus around 2018 she was started on hydroxychloroquine Twice daily. Last year it was reduced to 1 tab daily. Afterwards she was having a headache and workup eventually showed an old stroke. It does not look like patient had any neurological deficits. Hydroxychloroquine was increased back to 2 tabs daily. She stated that since she started hydroxychloroquine in 2018 the hair loss and skin rashes have improved. She states that she might be going back for another fibroid surgery as she continues to have significant menstrual bleeding. Has no other complaints today [facility] Medical History Iron deficiency anemia Surgical History H/O myomectomy Family History Father Diabetes Mother Breast cancer Maternal Grandmother Breast cancer Social History Household Members Other:: lives alone Housing: Condominium Are you a primary child care sitter to a significant other at home: No Do you presently have visiting nurse or other home services: No 75 years or older and lives alone: No Alcohol intake: current Alcohol intake frequency: holidays/special occasions only Alcohol type: wine Patient Tobacco Use Status: Never used Tobacco e-Cigarette/Vaping Use: Never Used Second Hand Smoke Exposure: No Current occupational status: employed Female Reproductive History Menstrual Total pregnancies: 0 Review of Systems Const Reports fatigue, Denies fever(s) and Denies headache(s) ENT Denies headache(s) Musc Denies arthralgias and Denies joint swelling Skin/Breast Denies rash Neuro Denies headache(s) Endo Reports fatigue Physical Exam Vital Signs: Last Vital Signs Pulse 80 03/09/24 14:01 BP 120/72 03/09/24 14:01 Pulse Ox 98 03/09/24 14:01 Oxygen Delivery Method Room Air 03/09/24 14:01 BMI result Body Mass Index 31.3 Const General: cooperative, healthy appearing and comfortable Nutritional Appearance: overweight Orientation/consciousness: patient oriented x3 Limitations: no limitations HEENT Head: Yes normocephalic and Yes atraumatic Mouth: moist mucous membranes Resp Effort & Inspection: normal respiratory effort and able to speak in complete sentences Auscultation: clear to auscultation bilaterally Cardio Rate: regular rate Rhythm: regular rhythm Skin Other: Mild hypopigmentation inside of right ear Neuro General: patient oriented x3 Extrem Other: No active synovitis Normal nailfold capillaroscopy Assessment & Plan Assessment & Plan (1) Systemic lupus: Comment: dx 2017 (Alopecia, arthralgia, mild leukopenia, ?CVA related to SLE +++Cho +++CLOTH FINISHING RANGE BACK TENDER +++SSa) Plaquenil since 2017. Eye exam [place] December2019, December 2020, summer 2022 Code(s): M32.9 - Systemic lupus erythematosus, unspecified Category: Medical Plan: This is a 43-year-old female with SLE who presents for follow-up. On hydroxychloroquine 200 mg Twice daily. On physical exam I do not see any signs suggestive of active SLE. Blood work is unremarkable except for mildly elevated CRP which is trending down, ESR is trending down, potentially due to resolution of her anemia. On exam there is no active synovitis, no skin rashes, no oral ulcers. She continues to have fluctuating leukopenia. There is no proteinuria, she has normal dsDNA levels and normal C3 and C4 Patient sometimes misses her night dose of Plaquenil. Advised patient to take both tablets together in the morning Labs before next visit in 4 months (2) History of CVA (cerebrovascular accident): Comment: Right frontal lobe encephalomalacia seen on MRI 11/2022 probable old CVA; ? residual memory deficits. Workup with CT angiogram of the head and neck was normal. 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 Per patient subsequent JOSE D was negative. CSF showed no leukocytosis, normal protein, slightly elevated IgG., studies for lupus anticoagulant and anti cardiolipin antibodies were negative. Code(s): Z86.73 - Personal history of transient ischemic attack (TIA), and cerebral infarction without residual deficits Category: Medical Plan: Continue with baby aspirin Hyper coagulable workup done by wool classer was negative (3) Long-term use of hydroxychloroquine: Code(s): Z79.899 - Other retirement (current) drug therapy Category: Medical Plan: Continue to follow-up regularly with Ophthalmology Plan I spent 25 minutes reviewing patient's chart, evaluating patient, ordering diagnostic workup, counseling patient and documenting in the chart Orders: Orders Anti DNA DS Antibody 4 Months .9 - Systemic lupus erythematosus, unspecified Complement C3 4 Months M32.9 - Systemic lupus erythematosus, unspecified Complement C4 4 Months M32.9 - Systemic lupus erythematosus, unspecified C Reactive Protein 4 Months M32.9 - Systemic lupus erythematosus, unspecified Protein Creatinine Ratio, Ur 4 Months M32.9 - Systemic lupus erythematosus, unspecified UA w Microscopic 4 Months M32.9 - Systemic lupus erythematosus, unspecified Erythrocyte Sedimentation Rate 4 Months M32.9 - Systemic lupus erythematosus, unspecified Complete Blood Count Auto Diff 4 Months M32.9 - Systemic lupus erythematosus, unspecified Comprehensive Met. Panel 4 Months M32.9 - Systemic lupus erythematosus, unspecified Coding Level of Care Code Est Pt Level 4 (89854) Diagnoses Systemic lupus M32.9 History of CVA (cerebrovascular accident) Z86.73 Long-term use of hydroxychloroquine Z79.899
[2024-03-09 14:01] VITALS: BP 120/72; PULSE 80; O2SAT 98; BMI 31.3
== END 2024-03-09 14:54 | disposition home or self-care (01) ==
PROVIDERS: Visit Provider Student in an Organized Health Care Education/Training Program
DX: M32.9 Systemic lupus erythematosus, unspecified (principal); Z86.73 Personal history of transient ischemic attack (TIA), and cerebral infarction without residual deficits; Z79.899 Other long term (current) drug therapy
CPT/HCPCS: 99214

== ENCOUNTER → 2024-03-09 13:42 | Outpatient (BNVA) | payer OTHER, SELFPAY | PROVIDERS: Visit Provider Student in an Organized Health Care Education/Training Program ==

== ENCOUNTER 2024-06-29 13:55 | Outpatient (AMB) | payer OTHER, SELFPAY ==
--- NOTE | 2024-06-29 13:56 | MHC.OFFVIS ---
Vital Signs 06/29/24 14:01 Height 5 ft 8 in Weight 203 lb 0.732 oz BMI 30.9 BP 124/72 Blood Pressure Location Rt brachial Position Sitting Pulse 89 Pulse Source Pulse Oximeter Pulse Oximetry (%) 99 Oxygen Delivery Method Room Air Intake Visit Reasons: SLE Intake Note: Patient presents for SLE. Allergies No Known Allergies Allergy (Verified 06/29/24 14:00) Medication List - Last Reconciled 06/29/24 by Lai Treviño MD aspirin 81 mg PO DAILY cholecalciferol (vitamin D3) 25 mcg PO DAILY ferrous sulfate 325 mg PO DAILY fluticasone propionate 50 mcg/actuation 1 spray intranasal BID 7 days hydroxychloroquine 200 mg PO BID multivitamin 1 tab PO DAILY vitamin B complex (B Complex-Vitamin B12 tablet) 1 tab PO DAILY HPI Comments Details: 43-year-old female with SLE returns for follow-up. Remains on hydroxychloroquine 200 mg Twice daily. She states that she has been doing about the same overall. She states that she gets intermittent pain in her left thigh/hip area anteriorly, it happens every few months. She also states that she gets intermittent throat and ear pain, no hearing changes. She denies any recent fevers, infections. Denies any rashes , hair loss or swollen joints Initial history with mt 09/2023: This is a 42-year-old female who presents for evaluation of SLE. She states that she has been doing fairly well. Except for symptoms of a head cold that started a few days ago. She is currently on her period. She states that she was recently evaluated by her financial aid administrator and was told that she has protein in the urine. She states that she had extensive testing by the financial aid administrator and no hypercoagulable order was found. Last year when she was found to have a stroke, 2D echo showed possible interatrial septum aneurysm however according to patient the transesophageal echo was unremarkable. She also had CT arterial and venogram of her head which were unremarkable. Patient stated that when initially diagnosed with lupus around 2018 she was started on hydroxychloroquine Twice daily. Last year it was reduced to 1 tab daily. Afterwards she was having a headache and workup eventually showed an old stroke. It does not look like patient had any neurological deficits. Hydroxychloroquine was increased back to 2 tabs daily. She stated that since she started hydroxychloroquine in 2018 the hair loss and skin rashes have improved. She states that she might be going back for another fibroid surgery as she continues to have significant menstrual bleeding. Has no other complaints today [facility] Medical History Iron deficiency anemia Surgical History H/O myomectomy Family History Father Diabetes Mother Breast cancer Maternal Grandmother Breast cancer Social History Household Members Other:: lives alone Housing: Condominium Are you a primary respiratory care technician to a significant other at home: No Do you presently have visiting nurse or other home services: No 75 years or older and lives alone: No Alcohol intake: current Alcohol intake frequency: holidays/special occasions only Alcohol type: wine Patient Tobacco Use Status: Never used Tobacco e-Cigarette/Vaping Use: Never Used Second Hand Smoke Exposure: No Current occupational status: employed Female Reproductive History Menstrual Total pregnancies: 0 Review of Systems Const Denies fever(s) and Denies headache(s) ENT Details: Intermittent left ear pain Reports otalgia and Denies headache(s) Musc Reports arthralgias and Denies joint swelling Skin/Breast Denies rash Neuro Denies headache(s) Physical Exam Vital Signs: Last Vital Signs Pulse 89 06/29/24 14:01 BP 124/72 06/29/24 14:01 Pulse Ox 99 06/29/24 14:01 Oxygen Delivery Method Room Air 06/29/24 14:01 BMI result Body Mass Index 30.9 Const General: cooperative, healthy appearing and comfortable Nutritional Appearance: overweight Orientation/consciousness: patient oriented x3 Limitations: no limitations HEENT Head: Yes normocephalic and Yes atraumatic Mouth: moist mucous membranes Resp Effort & Inspection: normal respiratory effort and able to speak in complete sentences Auscultation: clear to auscultation bilaterally Cardio Rate: regular rate Rhythm: regular rhythm Skin Other: Mild hypopigmentation inside of right ear Neuro General: patient oriented x3 Extrem Other: No active synovitis Normal nailfold capillaroscopy Negative straight leg raise test bilaterally No trochanteric bursa area tenderness bilaterally No knee pain with full flexion-extension bilaterally No hip pain with manipulation No groin pain with bilateral foot inversion Assessment & Plan Assessment & Plan (1) Systemic lupus: Comment: dx 2017 (Alopecia, arthralgia, mild leukopenia, ?CVA related to SLE +++Cho +++TRANSMITTER CHIEF +++SSa) Plaquenil since 2017 Code(s): M32.9 - Systemic lupus erythematosus, unspecified Category: Medical Plan: This is a 43-year-old female with SLE who presents for follow-up. On hydroxychloroquine 400 mg daily. On physical exam I do not see any signs suggestive of active SLE. Advised patient to get SLE activity labs as soon as possible. Continue with hydroxychloroquine 400 mg daily Intermittent left ear and throat pain, start Flonase nasal spray for 1 week Labs before next visit in 6 months (2) History of CVA (cerebrovascular accident): Comment: Right frontal lobe encephalomalacia seen on MRI 11/2022 probable old CVA; ? residual memory deficits. Workup with CT angiogram of the head and neck was normal. 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 Per patient subsequent JOSE D was negative. CSF showed no leukocytosis, normal protein, slightly elevated IgG., studies for lupus anticoagulant and anti cardiolipin antibodies were negative. Code(s): Z86.73 - Personal history of transient ischemic attack (TIA), and cerebral infarction without residual deficits Category: Medical Plan: Continue with baby aspirin Hyper coagulable workup done by financial aid administrator was negative (3) Long-term use of hydroxychloroquine: Comment: Eye exam 02/2024 [place] Code(s): Z79.899 - Other correction (current) drug therapy Category: Medical Plan: Continue to follow-up regularly with Ophthalmology Plan I spent 25 minutes reviewing patient's chart, evaluating patient, ordering diagnostic workup, counseling patient and documenting in the chart Orders: Orders Anti DNA DS Antibody 6 Months M32.9 - Systemic lupus erythematosus, unspecified Complement C3 6 Months M32.9 - Systemic lupus erythematosus, unspecified UA w Microscopic 6 Months M32.9 - Systemic lupus erythematosus, unspecified Comprehensive Met. Panel 6 Months M32.9 - Systemic lupus erythematosus, unspecified Complement C4 6 Months M32.9 - Systemic lupus erythematosus, unspecified C Reactive Protein 6 Months M32.9 - Systemic lupus erythematosus, unspecified Erythrocyte Sedimentation Rate 6 Months M32.9 - Systemic lupus erythematosus, unspecified Protein Creatinine Ratio, Ur 6 Months M32.9 - Systemic lupus erythematosus, unspecified Complete Blood Count Auto Diff 6 Months M32.9 - Systemic lupus erythematosus, unspecified Medications: New fluticasone propionate 50 mcg/actuation administer into each nostril 1 spray intranasal BID 16 grams 0RF allergy symptoms 7 days Coding Level of Care Code Est Pt Level 4 (99658) Diagnoses Systemic lupus M32.9 History of CVA (cerebrovascular accident) Z86.73 Long-term use of hydroxychloroquine Z79.899
[2024-06-29 14:01] VITALS: BP 124/72; PULSE 89; O2SAT 99; BMI 30.9
== END 2024-06-29 14:22 | disposition home or self-care (01) ==
PROVIDERS: Visit Provider Student in an Organized Health Care Education/Training Program
DX: M32.9 Systemic lupus erythematosus, unspecified (principal); Z86.73 Personal history of transient ischemic attack (TIA), and cerebral infarction without residual deficits; Z79.899 Other long term (current) drug therapy
CPT/HCPCS: 99214

== ENCOUNTER 2024-06-29 13:55 | Outpatient (REF) | payer OTHER, SELFPAY ==
[2024-06-29 14:48] LABS: MANUAL DIFF FLAG NO
[2024-06-29 15:27] LABS: Basophils Percent Auto 0.3 % (0-2); Eosinophils Absolute Auto 0.1 X10*3/uL (0.0-0.4); Hematocrit 35.8 % (37.0-47.0); Imm Gran Abs Auto 0.01 X10*3/uL (0.00-0.03); Imm Gran Pct Auto 0.3 % (0.0-0.4); Lymphocytes Absolute Auto 1.1 X10*3/uL (1.2-4.9); Lymphocytes Percent Auto 34.8 % (20-40); Mean Corpuscular HGB Conc 30.7 g/dl (31.0-35.0); Mean Corpuscular Hemoglobin 24.2 pg (27.0-33.0); Mean Corpuscular Volume 78.7 fL (80.0-98.0); Mean Platelet Volume 11.4 fL (9.4-12.3); Monocytes Absolute Auto 0.4 X10*3/uL (0.1-1.2); Monocytes Percent Auto 14.6 % (2-11); Neutrophils Absolute Auto 1.4 x10*3/uL (2.0-8.3); Platelet Count 292 X10*3/uL (160-400); Red Blood Count 4.55 X10*6/uL (4.20-5.50); Red Cell Distribution Width 15.8 % (11.0-16.0)
[2024-06-29 16:06] LABS: Alanine Aminotransferase 36 U/L (0-31); Albumin Level 3.9 g/dL (3.5-5.0); Alkaline Phosphatase 68 U/L (39-117); Anion Gap 8 (12-20); Aspartate Amino Transferase 35 U/L (5-31); Bilirubin Total 0.3 mg/dL (0.0-1.0); Blood Urea Nitrogen 9 mg/dL (9-16); C Reactive Protein 0.51 mg/dL (< or = 0.50); Calcium 8.5 mg/dL (8.4-10.2); Carbon Dioxide 25 mmol/L (22-29); Chloride 108 mmol/L (96-108); Estimated Glomerular Filt Rate > 60; Glucose Random 71 mg/dL (60-115); Potassium 3.5 mmol/L (3.3-5.1); Sodium 137 mmol/L (135-145)
[2024-06-29 16:17] LABS: Erythrocyte Sedimentation Rate 13 MM/HR (0-20)
[2024-06-29 16:19] LABS: Appearance Urine Clear; Color Urine Yellow; Glucose Urine UA Negative (Negative); Leukocyte Esterase Urine Negative (Negative); Nitrite Urine Negative (Negative); PH 5.5 (5.0-9.0); Urine Blood Negative (Negative); Urine Ketones Negative (Negative); Urine Protein Negative (Neg-Trace)
[2024-06-29 16:24] LABS: Bacteria Urine None Seen (None Seen); Hyaline Casts Urine 0-2 /LPF (0-2); RBC Urine 0-2 /HPF (0-2); Squamous Epithelial Cell Urine 0-2 /HPF (0-2); WBC Urine 0-5 /HPF (0-5)
[2024-06-29 16:31] LABS: Creatinine Urine 57.19 mg/dL; Total Protein Urine Random < 7 mg/dL (<12)
--- OUTSIDE RECORDS SUMMARY | 2024-06-29 18:07 | XMS_ITS | Data Portability ---
Author Organization [facility], [address] Address [address] [place] [address] Assessment No assessment recorded. Plan of Treatment Reminders Order Date Submit Date Provider Last Modified By Organization Details Last Modified Time Details Appointments None recorded. Lab None recorded. Referral neurologist referral 2022 023 [email or web address] 26 [facility], [address] [address], [place], [address], 07:56:57 Procedures None recorded. Surgeries None recorded. Imaging None recorded. Medication Orders ketorolac 60 mg/2 mL intramuscul ar solution 2022 023 [email or web address] Not available 18:20:58 acetaminoph en 325 mg tablet 2022 023 [email or web address] Not available 18:20:58 Patient TargetsNo targets recorded. Patient Instructions Encounter Date Encounter Id Patient Instructions Last Modified By Organization Details Last Modified Time 10/14/2022 [id number] If the pain does not respond to the treatment plan or gets worse go to directly to the ER for further evaluation and management. [email or web address] Not available 10/14/2022 18:29:21 We attempted to connect with her neurologist with no success. I explained that while she is waiting for her PCP and Neurology appointment, if her pain increases, or she develops additional symptoms she needed to go directly to the ER for additional evaluation and management and connection with a specialist. [email or web address] Not available 11/07/2022 13:40:06 Reason for Referral Neurologist Referral for Hea dache Referring Physician: [facility], Encounter Date: 10/14/2022 Problems Name Problem SNOMED Code Status Onset Date Resolution Date Notes Provider Name and Address Organization Details Recorded Time Lupus erythematosus 787898146 Active 2022 TORIN REILLY flores PA [facility] 3 16:37:03 Uterine leiomyoma 54824084 Active 2022 NICHELLE Sol [facility] 3 16:37:17 Problem Notes None recorded. Procedures Surgical History Date Name Laterality Status Provider Name and Address Organization Details Recorded Time uterine myomectomy completed TORIN REILLY Pimentel [facility] 10/14/2022 16:38:14 Imaging Results None recorded. Procedure Notes None recorded. Medical Equipment None Reported. Allergies No known drug allergies Medications Name Sig Start Date Stop Date Status Note LastModified by Organization Details LastModified Time acetaminophe n 325 mg tablet Take 3 tablets by oral route. 2022 active Not Available Not Available Not Avai lable ketorolac 60 mg/2 mL intramuscula r solution Inject 2 mL by intramuscul ar route. 2022 active Not Available Not Available Not Avai lable hydroxychlor oquine active Not Available Not Available Not Available Vitals Date Recorded Body height Body mass index (BMI) Body weight Respiratory rate Oxygen saturation Oxygen saturation in Arterial blood by Pulse oximetry Heart rate Body temperature Systolic blood pressure Diastolic blood pressure Provider Name and Address Organization Details Last Updated DateTime 3 170.18 cm 27.9 kg/m2 24935.4 4 g 17 /min 100 % 100 % 84 /min 98.3 [degF] 122 mm[Hg] 82 mm[Hg] TORIN GROVER PA - [facility] 3 16:39:08 Social History Question Answer Notes LastModified by Organizat ion Details LastModified Time Tobacco Smoking Status Never Smoker TORIN flores PA [facility] 10/14/2022 16:37:59 What Is Your Level Of Alcohol Consumption? Occasional Information not available 10/14/2022 Do You Use Any Illicit Or Recreational Drugs? No Information not available 10/14/2022 Have You Recently Traveled Abroad? No [email or web address] Information not available 10/14/2022 Do You Or Have You Ever Used Any Other Forms Of Tobacco Or Nicotine? No [email or web address] Information not available 10/14/2022 Sex: Unknown Functional Status None recorded. Mental Status None recorded. Family History Relationship Description Onset Age of this Age Resolved Age Notes LastModified by Organization Details LastModified Time Father No current problems or disability [email or web address] Not available 10/14 16:37:41 Mother No current problems or disability Not available 10/14 16:37:41 Medical History No medical history recorded. Gynecological HistoryNo gynecological history recorded. Obstetrics History GPAL:G 0 P 0 0 0 0 Past Encounters Encounter ID Performer Location Encounter Start Date Encounter Closed Date Diagnosis/Indication Diagnosis SNOMED-CT Code Diagnosis ICD10 Code Diagnosis Note [id number] [facility] [address] [place] [address] 03/03/2015 19:37:45 03/03/2015 20:22:06 [id number] [facility] [address] [place] [address] 11/28/2020 17:26:33 11/28/2020 18:31:22 [id number] [facility] [address] [place] [address] 01/25/2021 17:28:28 01/25/2021 19:20:42 [id number] [address] [place] [address] 05/12/2021 13:01:07 05/12/2021 15:38:16 [id number] KARYN BUENO [facility] [address] [place] [address] 10/14/2022 16:32:00 10/14/2022 18:32:39 Migraine 12603678 G43.909 ibuprofen 600 mg every 8 hrs. Headache 46787735 R51.9 Health Concerns Section Related Observation LastModified by Organization Detai ls LastModified Time None Recorded Concern Status LastModified by Organization Details LastModified Time None Recorded Advance Directives Directive None Recorded Payers Encounter Date Sequence Insurance Name Policy Number Policy Arroyo Covered Member ID Arroyo Member ID Guarantor Name 03/03/2015 1 [facility] [id number] Yuli Quinn [id number] Yuli Quinn 11/28/2020 1 [facility] [id number] Yuli Quinn [id number] Yuli Quinn 01/25/2021 1 [facility] [id number] Yuli Quinn [id number] Yuli Quinn 05/12/2021 1 [facility] [id number] Yuli Quinn [id number] Yuli Quinn 10/14/2022 1 [facility] [id number] Yuli Quinn [id number] Yuli Quinn Notes Date Note Type Note Provider Name and Address Organization Details Recorded Time 10/14/2022 text/html 42 yo female presents with acute onset of headache x 1 day. The pain did not wake her up but started as when was getting out of bed. The pain is not responding to OTC pain medication. She denies recent illness, exposure to sick contacts, or exposure to new chemicals or medications. KARYN BUENO MD [address] [place], [address], [place] - [facility] 11/07/2022 13:40:38 OBGyn Episode No OBEpisode recorded.
[2024-06-30 20:09] LABS: Complement C3 110 mg/dL (83-193)
[2024-07-01 21:43] LABS: Anti DNA DS Antibody 1 IU/mL
== END 2024-06-29 13:56 | disposition home or self-care (01) ==
LOC: HO.LAB 13:55
PROVIDERS: Visit Provider Student in an Organized Health Care Education/Training Program
DX: M32.9 Systemic lupus erythematosus, unspecified (principal); Z86.73 Personal history of transient ischemic attack (TIA), and cerebral infarction without residual deficits; Z79.899 Other long term (current) drug therapy
CPT/HCPCS: 36415; 80053; 81001; 82570; 84156; 85025; 85652; 86140; 86160; 86225

== ENCOUNTER 2024-10-05 15:38 | Outpatient (REF) | payer OTHER, SELFPAY ==
[2024-10-05 17:10] LABS: Basophils Percent Auto 0.3 % (0-2); Hemoglobin 9.1 g/dl (12.0-16.0); Lymphocytes Percent Auto 34.4 % (20-40); SCAN SMEAR FLAG 1; White Blood Count 2.9 X10*3/uL (4.8-10.8)
[2024-10-05 17:12] LABS: Eosinophils Absolute Auto 0.1 X10*3/uL (0.0-0.4); Eosinophils Percent Auto 3.4 % (0-4); Hematocrit 30.6 % (37.0-47.0); Imm Gran Abs Auto 0.01 X10*3/uL (0.00-0.03); Imm Gran Pct Auto 0.3 % (0.0-0.4); MANUAL DIFF FLAG SCAN; Mean Corpuscular HGB Conc 29.7 g/dl (31.0-35.0); Mean Corpuscular Hemoglobin 22.8 pg (27.0-33.0); Mean Corpuscular Volume 76.5 fL (80.0-98.0); Mean Platelet Volume 10.9 fL (9.4-12.3); Monocytes Absolute Auto 0.4 X10*3/uL (0.1-1.2); Monocytes Percent Auto 14.8 % (2-11); Neutrophils Absolute Auto 1.4 x10*3/uL (2.0-8.3); Neutrophils Percent Auto 46.8 % (45-73); Platelet Count 203 X10*3/uL (160-400); Red Cell Distribution Width 21.1 % (11.0-16.0)
[2024-10-05 17:18] LABS: PLT ABN DIST 1
[2024-10-05 17:48] LABS: Alanine Aminotransferase 18 U/L (0-31); Albumin Level 3.7 g/dL (3.5-5.0); Alkaline Phosphatase 57 U/L (39-117); Anion Gap 12 (12-20); Aspartate Amino Transferase 27 U/L (5-31); Bilirubin Total 0.2 mg/dL (0.0-1.0); Blood Urea Nitrogen 13 mg/dL (9-16); C Reactive Protein 2.43 mg/dL (< or = 0.50); Calcium 8.8 mg/dL (8.4-10.2); Carbon Dioxide 25 mmol/L (22-29); Chloride 108 mmol/L (96-108); Estimated Glomerular Filt Rate > 60; Glucose Random 86 mg/dL (60-115); Potassium 4.2 mmol/L (3.3-5.1); Sodium 141 mmol/L (135-145); Total Protein 7.7 g/dL (6.5-8.0)
[2024-10-05 17:54] LABS: Erythrocyte Sedimentation Rate 41 MM/HR (0-20)
--- OUTSIDE RECORDS SUMMARY | 2024-10-05 18:42 | XMS_ITS | Clinical Summary ---
Author Organization [facility] Address [address] [place] [address] Care Team Providers Care Furniture Restorer Name Role Phone Christian Kang MD Primary Care Provider [phone] Allergies No known active allergies Medications Medication Sig Dispensed Refills Start Date End Date Status hydroxychloroquine (PLAQUENIL) 200 MG tablet Take 200 mg by mouth daily. 0 Active Active Problems No known active problems Social History Tobacco Use Types Packs/Day Years Used Date Smoking Tobacco: Never Smokeless Tobacco: Never Alcohol Use Standard Drinks/Week Comments Yes 0 (1 standard drink = 0.6 oz pur e alcohol) Social Sex and Gender Information Value Date Recorded Sex Assigned at Not on file Gender Identity Not on file Sexual Orientation Not on file Job Start Date Occupation Industry Not on file Not on file Not on file Last Filed Vital Signs Vital Sign Reading Time Taken Comments Blood Pressure 111/74 11/20/2021 2:19 PM EDT Pulse 75 11/20/2021 2:19 PM EDT Temperature 37 ??C (98.6 ??F) 11/20/2021 2:19 PM EDT Respiratory Rate - - Oxygen Saturation 100% 11/20/2021 2:19 PM EDT Inhaled Oxygen Concentration - - Weight 79.4 kg (175 lb) 11/20/2021 2:19 PM EDT Height - - Body Mass Index - - Plan of Treatment Health Maintenance Due Date Last Done Comments Hepatitis B Vaccines (1 of 3 - 3-dose series) 1981 Hepatitis C Screening 1981 COVID-19 Vaccine (#1) 05/08/1982 Depression Screening 1993 Preventative Health Evaluation 11/06/1999 Cervical Cancer Screening (P ap Smear) 2002 DTap / Tdap / Td (2 - Td or Tdap) 09/22/2023 014 Influenza Vaccine (#1) 2024 Pneumococcal Vaccine Aged Out No long er eligible based on patient's age to complete this topic RSV Ped < 20 months Aged Out No longe r eligible based on patient's age to complete this topic Care Teams Furniture Restorer Relationship Specialty Start Date End Date Christian Kang MD PCP - General Internal Medicine 11/20/21
--- OUTSIDE RECORDS SUMMARY | 2024-10-05 18:42 | XMS_ITS | Data Portability ---
Author Organization [facility], [address] Address [address] [place] [address] Assessment No assessment recorded. Plan of Treatment Reminders Order Date Submit Date Provider Last Modified By Organization Details Last Modified Time Details Appointments None recorded. Lab None recorded. Referral neurologist referral 2022 023 [email or web address] 26 [facility], [address] [facility] [address], [place], [address], 07:56:57 Procedures None recorded. Surgeries None recorded. Imaging None recorded. Medication Orders ketorolac 60 mg/2 mL intramuscul ar solution 2022 023 [email or web address] 247 Not available 18:20:58 acetaminoph en 325 mg tablet 2022 023 [email or web address] 247 Not available 18:20:58 Patient TargetsNo targets recorded. Patient Instructions Encounter Date Encounter Id Patient Instructions Last Modified By Organization Details Last Modified Time 10/14/2022 [id number] If the pain does not respond to the treatment plan or gets worse go to directly to the ER for further evaluation and management. [email or web address] Not available 10/14/2022 18:29:21 We attempted to connect with her neurologist with no success. I explained that while she is waiting for her PCP and Neurology appointment, if her pain increases, or she develops additional symptoms she needed to go directly to the ER for additional evaluation and management and connection with a specialist. [email or web address] Not available 11/07/2022 13:40:06 Reason for Referral Neurologist Referral for Hea dache Referring Physician: [facility], Encounter Date: 10/14/2022 Problems Name Problem SNOMED Code Status Onset Date Resolution Date Notes Provider Name and Address Organization Details Recorded Time Lupus erythematosus 307673415 Active 2022 TORIN REILLY flores PA - [facility] 3 16:37:03 Uterine leiomyoma 64034719 Active 2022 TORIN flores PA - [facility] 16:37:17 Problem Notes None recorded. Procedures Surgical History Date Name Laterality Status Provider Name and Address Organization Details Recorded Time uterine myomectomy completed TORIN REILLY STEWARD - [facility] 10/14/2022 16:38:14 Imaging Results None [...] height Body mass index (BMI) Body weight Pain severity - 0-10 verbal numeric rating [Score] - Reported Respiratory rate Oxygen saturation Oxygen saturation in Arterial blood by Pulse oximetry Heart rate Body temperature Systolic blood pressure Diastolic blood pressure Provider Name and Address Organization Details Last Updated DateTime 3 170.18 cm 27.9 kg/m2 42805.4 4 g 9 17 /min 100 % 100 % 84 /min 98.3 [degF] 122 mm[Hg] 82 mm[Hg] TORIN RAHMANEY PA - [facility] 3 16:39:08 Social History Question Answer Notes LastModified by Organizat ion Details LastModified Time Tobacco Smoking Status Never Smoker TORIN REILLY flores PA - [facility] 10/14/2022 16:37:59 What Is Your Level Of Alcohol Consumption? Occasional [email or web address] Information not available 10/14/2022 Do You Use Any Illicit Or Recreational Drugs? No [email or web address] Information not available 10/14/2022 Have You Recently Traveled Abroad? No [email or web address] Information not available 10/14/2022 Do You Or Have You Ever Used Any Other Forms Of Tobacco Or Nicotine? No Information not available 10/14/2022 Sex: Unknown Functional Status None recorded. Mental Status None recorded. Family History Relationship Description Onset Age of this Age Resolved Age Notes LastModified by Organization Details LastModified Time Father No current problems or disability [email or web address] Not available 10/14 16:37:41 Mother No current problems or disability [email or web address] Not available 10/14 16:37:41 Medical History No medical history recorded. Gynecological HistoryNo gynecological history recorded. Obstetrics History GPAL:G 0 P 0 0 0 0 Past Encounters Encounter ID Performer Location Encounter Start Date Encounter Closed Date Diagnosis/Indication Diagnosis SNOMED-CT Code Diagnosis ICD10 Code Diagnosis Note [id number] [address] [place] [phone] 03/03/2015 19:37:45 03/03/2015 20:22:06 [id number] [address] [place] [phone] 11/28/2020 17:26:33 11/28/2020 18:31:22 [id number] [address] [address] [address] [place] [address] 01/25/2021 17:28:28 01/25/2021 19:20:42 [id number] [address] [place] [address] 05/12/2021 13:01:07 05/12/2021 15:38:16 [id number] KARYN GIPSON MD [address] [place] [id number] 10/14/2022 16:32:00 10/14/2022 18:32:39 Migraine 08168048 G43.909 ibuprofen 600 mg every 8 hrs. Headache 83509620 R51.9 Health Concerns Section Related Observation LastModified by Organization Detai ls LastModified Time None Recorded Concern Status LastModified by Organization Details LastModified Time None Recorded Advance Directives Directive None Recorded Payers Encounter Date Sequence Insurance Name Policy Number Policy Arroyo Covered Member ID Arroyo Member ID Guarantor Name 03/03/2015 1 [facility] [id number] Yuli Quinn [id number] Yuli Quinn 11/28/2020 1 [facility] [id number] Yuli Quinn [id number] Yuli Quinn 01/25/2021 1 [facility] [id number] Yuli Quinn [id number] Yuli Quinn 05/12/2021 1 [facility] [id number] Yuli Quinn [id number] Yuli Quinn 10/14/2022 1 [facility] [id number] Yuli Quinn [id number] Yuli Quinn Notes Date Note Type Note [...] exposure to new chemicals or medications. KARYN GIPSON MD [address] [place], [address], PA - [facility] 11/07/2022 13:40:38 OBGyn Episode No OBEpisode recorded.
--- OUTSIDE RECORDS SUMMARY | 2024-10-05 18:42 | XMS_ITS | Clinical Summary ---
Author Organization [facility] [address] [place] [address] Address [address] [facility] [place] [address] Phone Care Team Providers Care Projection Printer Name Role Phone Christian Kang MD Primary Care Provider [phone] Allergies No known active allergies Medications aspirin 81 mg EC tablet Take 1 tablet (81 mg total) by mouth. 02/28/2023 Active cholecalciferol (VITAMIN D-3) 25 mcg (1,000 unit) tablet Take by mouth. Active clotrimazole-be tamethasone (LOTRISONE) 1-0.05 % cream Appl 0.5 FTU to external vagina in the morning for 7-10 days. 01/28/2024 01/23/20 25 Active hydroxychloroqu ine (PLAQUENIL) 200 mg tablet Take 1 tablet (200 mg total) by mouth every other day. Active ibuprofen (ADVIL,MOTRIN) 800 mg tablet Take 1 Tablet by mouth every 8 hours as needed for Pain (and heavy menses). 02/28/2022 Active ferrous sulfate (IRON ORAL) Take 1 tablet by mouth 1 (one) time each day. Active multivitamin (MULTIPLE VITAMINS ORAL) Take by mouth. Active ferrous gluconate (FERGON) 324 mg (38 mg iron) tablet Take 1 tablet (324 mg total) by mouth 2 (two) times a day. 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 I explained that she could undergo myomectomy with our practice, but it would be better to consider seeing [facility] as she may require their assitance with conception thereafter. She was counseled that at her age, she should not wait to make this decision due to lower changes of conceiving and increasing risk of antepartum maternal complications, as well as increased risk of loss. Risks are higher still with her medical comorbidities. She was open to referral to [facility]. She was informed that she should hear back in 1-2 weeks with an appointment date. If not, she should call back to our office and inquire on getting this arranged. She voiced understanding and agreed. In the meantime, I suggested we switch to Aygestin to suppress bleeding and provide contraception, although it is not FDA approved for this purpose. She voiced understanding and agreed. SLE (systemic lupus erythema tosus) ([facility] V24, [facility] V28) 09/24/2019 Overview (05/31/2024): 2017 - initially saw Dr. Stevenson at [facility] Alopecia, arthralgia, mild leukopenia Plaquenil since 2016. Eye exam December,, December 20202019: anti DNA, C3, C4 normal. 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 Milian on doxycycline and minoxidil cream Alopecia of scalp 11/19/2016 Pseudotumor cerebri 09/02/2016 Overview (05/31/2024): ~ 2017 did see neurology Major depression 10/06/2014 Encounters Date Type Department Care Team Description 09/15/2024 6:22 PM EDT - 09/15/2024 11:59 PM EDT Hospital Encounter Radiology Department - [address] [phone] Uterine leiomyoma, unspecified location Discharge Disposition: Home or Self Care 09/06/2024 1:30 PM EDT Office Visit Obstetrics and Gynecology - [address] [phone] Fariba Callaway CNM Encounter for annual routine gynecological examination (Primary Dx); Family history of breast cancer in first degree relative; Uterine leiomyoma, unspecified location; Other fatigue; History of anemia from Last 3 Months Immunizations Name Administration Dates Next Due Pfizer SARS-CoV-2 COVID-19, mRNA, LNP-S, preservative free 07/14/2021,10/25/2020 Surgical History Surgery Date Site/Laterality Comments OTHER SURGICAL HISTORY PROCEDURE: HISTORICAL UNSPECIFIED SURGERY; COMMENT: myomectomy OTHER SURGICAL HISTORY 03/2012 PROCEDURE: CT MYOMECTOMY 1-4 MYOMAS W/250 GM/< ABDOMINAL APPR OTHER SURGICAL HISTORY PROCEDURE: URETHRAL INSERT OTHER SURGICAL HISTORY 08/22/2017 PROCEDURE: CT HYSTEROSCOPY REMOVAL LEIOMYOMATA Medical History Medical History Date Comments Abnormal Pap smear of cervix DX: Abnormal Pap smear of cervix Fibroid uterus DX:Fibroid uteru s Avis's thyroiditis 05/08/2017 DX:Marv chaka's thyroiditis Vaginal trichomoniasis 01/28/2024 DX:Vagina l trichomoniasis Family History Medical History Relation Name Comments Lymphoma Aunt 1 paternal aunt, at 55 Breast cancer Aunt 2 maternal aunt Hypertension Brother Diabetes Father HTN, benign pit uitary adenoma Heart attack Maternal Grandfather passed in 60s Breast cancer Maternal Grandmother 57 unilat eral Breast cancer Mother 57 Breast cancer Other pat aunt Colon cancer Other pat aunt maternal great aunt > 50 No Known Problems Paternal Grandfather pa ssed age 101 Diabetes Paternal Grandmother passed in 60s No Known Problems Sister Ovarian cancer Neg Hx Uterine cancer Neg Hx Relation Name Status Comments Aunt 1 Aunt 2 Brother Alive Father Alive Maternal Grandfather Maternal Grandmother 57 Mother 57 Other pat aunt Other Paternal Grandfather Paternal Grandmother Sister Alive Social History Tobacco Use Types Packs/Day Years Used Date Smoking Tobacco: Never Smokeless Tobacco: Never Alcohol Use Standard Drinks/Week Comments Not Currently 0 (1 standard drink = 0.6 oz pur e alcohol) Comments No Sex and Gender Information Value Date Recorded Sex Assigned at Not on file Legal Sex Female 12:13 PM EST Gender Identity Not on file Sexual Orientation Not on file Obstetrics History Para Term AB IAB SAB Ectopic Multiple Livin g Live Births 0 0 0 0 0 0 0 0 0 0 0 Last Filed Vital Signs Vital Sign Reading Time Taken Comments Blood Pressure 117/80 09/06/2024 1:41 PM EDT Pulse 78 09/06/2024 1:41 PM EDT Temperature - - Respiratory Rate 14 09/06/2024 1:41 PM EDT Oxygen Saturation - - Inhaled Oxygen Concentration - - Weight 87.3 kg (192 lb 6.4 oz) 09/06/2024 1:41 P M EDT Height 170.2 cm (5' 7 ) 09/06/2024 1:41 PM EDT Body Mass Index 30.13 09/06/2024 1:41 PM EDT Plan of Treatment Health Maintenance Due Date Last Done Comments Hepatitis B Vaccines (1 of 3 - 19+ 3-dose series) 2000 Depression Screening 06/01/2022 HIV Screening 06/01/2022 Hepatitis C Screening 06/01/2022 Social Influencers of Health Screening 06/01/2022 DTaP,Tdap,and Td Vaccines (2 - Td or Tdap) 09/22/2023 09/21/2013 COVID-19 Vaccine (4 - 2023-2 5 season) 2024 07/14/2021, 10/25/2020, 10/04/2020 Influenza Vaccine (Season Ended) 2025 Cervical Cancer Screening: HPV 02/07/2026 02/07/2021 Breast Cancer Screening 04/24/2026 04/24/20 24, 03/26/2023, 02/11/2022 MMR Vaccines Aged Out 09/21/2013 No longer eligi ble based on patient's age to complete this topic HIB Vaccines Aged Out No longer eligi ble based on patient's age to complete this topic HPV Vaccines Aged Out No longer eligi ble based on patient's age to complete this topic Hepatitis A Vaccines Aged Out No long er eligible based on patient's age to complete this topic IPV Vaccines Aged Out No longer eligi ble based on patient's age to complete this topic Meningococcal ACWY Vaccine Aged Out N o longer eligible based on patient's age to complete this topic Meningococcal B Vaccine Aged Out No l onger eligible based on patient's age to complete this topic Pneumococcal Vaccine: Pediatrics (0 to 5 Years) and At-Risk Patients (6 to 64 Years) Aged Out No longer eligible b ased on patient's age to complete this topic RSV Immunization Patients Under 20 months Aged Out No longer eligible b ased on patient's age to complete this topic Varicella Vaccines Aged Out No longer eligible based on patient's age to complete this topic Procedures Procedure Name Priority Date/Time Associated Diagnosis Comments US PELVIS NON OB COMPLETE W TRANSVAGINAL Routine 09/15/2024 6:58 PM EDT Uterine leiomyoma, unspecified location COMPLETE BLOOD COUNT Routine 09/07/2024 12:41 PM EDT Uterine leiomyoma, unspecified location Other fatigue History of anemia VENIPUNCTURE CHARGE Routine 09/07/2024 1 2:41 PM EDT Leiomyoma of uterus, unspecified MG MAMMO DIGITAL SCREENING W TAWANDA BILAT Routine 04/24/2024 3:30 PM EDT Encounter for screening mammogram for breast cancer HM HPV Routine 02/07/2021 from Last 3 Months or Most Recently Relevant to Health Maintenance Results * US Pelvis Non OB Complete w Transvaginal (09/15/2024 6:58 PM EDT) Anatomical Region Laterality Modality Body, Pelvis Ultrasound 09/16/2024 9:22 AM EDT Impressions 09/16/2024 9:59 AM EDT 1. ??Interval increase in size of fundal fibroid. ??Multiple new fibroids are also identified on today's examination. -------- FINAL REPORT -------- Dictated By: Jean Singh Dictated Date: 09/16/2024 09:22 ET Assigned Physician: Jean Singh Reviewed and Electronically Signed By: Jaen Singh Signed Date: 09/16/2024 09:59 ET Workstation ID: [id number] Transcribed By: Self Edit Transcribed Date: 09/16/2024 09:26 ET Narrative 09/16/2024 9:59 AM EDT EXAM: TRANSABDOMINAL AND TRANSVAGINAL PELVIC ULTRASOUND HISTORY: OTHER fibroid uterus COMPARISON: Ultrasound pelvis from 07/02/2023 Technique: Grayscale and Doppler images of the pelvis were obtained using transabdominal approach. Transvaginal approach was used to better characterize the ovaries. FINDINGS: The uterus is enlarged in size and measures 18.3 x 8.4 x 11.5 cm. The normal in caliber endometrial stripe measures up to 0.8 cm. The myometrium is markedly heterogeneous. ??Solid heterogeneous mass is present within the intramural/submucosal fundal region measuring 8.2 x 6.4 x 8.5 cm previously measuring 7.3 x 5.3 x 8.5 cm. ??Solid hypoechoic mass measuring 6.6 x 6.6 x 4.9 cm which is subserosal and pedunculated along the right uterus. ??Within the posterior lower uterine segment is a subserosal 3.9 x 3.8 x 4.1 cm solid hypoechoic mass. ??The cervix measures 3.8 cm. Right ovary measures 3.4 x 2.6 x 1.8 cm and is sonographically unremarkable. Left ovary measures 2.4 x 2.2 x 1.8 cm and is also sonographically unremarkable. No free fluid. Procedure Note Jean Singh MD - 09/16/2024 EXAM: TRANSABDOMINAL AND TRANSVAGINAL PELVIC ULTRASOUND HISTORY: OTHER fibroid uterus COMPARISON: Ultrasound pelvis from 07/02/2023 Technique: Grayscale and Doppler images of the pelvis were obtained usingtransabdominal approach. Transvaginal approach was used to bettercharacterize the ovaries. FINDINGS: The uterus is enlarged in size and measures 18.3 x 8.4 x 11.5 cm. Thenormal in caliber endometrial stripe measures up to 0.8 cm. The myometriumis markedly heterogeneous. Solid heterogeneous mass is present within theintramural/submucosal fundal region measuring 8.2 x 6.4 x 8.5 cmpreviously measuring 7.3 x 5.3 x 8.5 cm. Solid hypoechoic mass measuring6.6 x 6.6 x 4.9 cm which is subserosal and pedunculated along the rightuterus. Within the posterior lower uterine segment is a subserosal 3.9 x3.8 x 4.1 cm solid hypoechoic mass. The cervix measures 3.8 cm. Right ovary measures 3.4 x 2.6 x 1.8 cm and is sonographicallyunremarkable. Left ovary measures 2.4 x 2.2 x 1.8 cm and is also sonographicallyunremarkable. No free fluid. IMPRESSION: 1. Interval increase in size of fundal fibroid. Multiple new fibroidsare also identified on today's examination. -------- FINAL REPORT -------- Dictated By: Jean Singh Dictated Date: 09/16/2024 09:22 ET Assigned Physician: Jean Singh Reviewed and Electronically Signed By: Jean Singh Signed Date: 09/16/2024 09:59 ET Workstation ID: [id number] Transcribed By: Self Edit Transcribed Date: 09/16/2024 09:26 ET us Fariba Callaway CNM IMG US PROCEDURES Final Result * Venipuncture charge (09/07/2024 12:41 PM EDT) Extra Tube Hold for add-ons. 09/07/2024 2:01 PM EDT [facility] THOMAS YUAN) Comment:Auto resulted. Blood Venous blood specimen / Unknown Venipuncture / Unknown 09/07/2024 12:41 PM EDT 09/07/2024 12:41 PM EDT us Fariba Callaway CNM LAB BLOOD ORDERABLES Final Resu lt [facility] THOMAS GUZMAN (BEAKER), * (ABNORMAL) Complete blood count (09/07/2024 12:41 PM EDT) [facility] WBC 3.0(L) 4.8 - 10.8 K/mcL LAB HEMETOLOGY METHOD 09/07/2024 2:17 PM [facility] RBC 4.00 3.80 - 4.80 M/mcL LAB HEMETOLOGY METHOD 09/07/2024 2:17 PM EDT [facility] Hemoglobin 8.7(L) 11.5 - 16.0 g/dL LAB HEMETOLOGY METHOD 09/07/2024 2:17 PM EDT [facility] Hematocrit 29.0(L) 35.0 - 47.0 % LAB [facility]OLOGY [facility] MCV 72.3(L) 79.0 - 98.0 FL LAB HEMETOLOGY METHOD [facility]07[facility]24 [facility] MCH 21.7(L) 27.0 - 32.0 pcg LAB HEMETOLOGY METHOD [facility]07[facility]24 [facility] MCHC 30.0(L) 32.0 - 37.0 g/dL LAB HEMETOLOGY METHOD 09/07/2024 2:17 PM [facility] RDW 15.6(H) 11.0 - 15.0 % LAB HEMETOLOGY METHOD 09/07/2024 2:17 PM EDT [facility] Platelets 318 130 - 400 K/mcL LAB HEMETOLOGY METHOD 09/07/2024 2:17 PM [facility] MPV 11.0 7.0 - 11.0 FL LAB HEMETOLOGY METHOD [facility]07[facility]2024 [facility] NRBC 0.0 <1.0 % LAB HEMETOLOGY METHOD [facility]/07[facility]2024 [facility] NRBC Absolute 0.00 <0.10 K/mcL LAB HEMETOLOGY METHOD 09/07/2024 2:17 PM EDT [facility] Blood Venous blood specimen / Unknown Venipuncture / Unknown 09/07/2024 12:41 PM EDT 09/07/2024 12:41 PM EDT us Fariba Callaway [facility] LAB BLOOD ORDERABLES Final Resu lt [facility] [address] [place] [address], [place] [phone] * MG Mammo Digital Screening w Tawanda bilat (04/24/2024 3:30 PM EDT) Anatomical Region Laterality Modality Breast Bilateral Mammography 04/26/2024 4:36 PM EST Impressions 04/26/2024 4:37 PM EST No mammographic evidence of malignancy. BI-RADS CATEGORY: 1 - NEGATIVE RECOMMENDATION: Screening bilateral mammogram is recommended in 1 year. -------- FINAL REPORT -------- Dictated By: Donna Paredes Dictated Date: 04/26/2024 16:36 ET Assigned Physician: Donna Paredes Reviewed and Electronically Signed By: Donna Paredes Signed Date: 04/26/2024 16:37 ET Workstation ID: [id number] Transcribed By: Self Edit Transcribed Date: 04/26/2024 16:36 ET Narrative 04/26/2024 4:37 PM EST CLINICAL: 43 years old, Female, routine annual exam. COMPARISON: 03/26/2023 and 02/11/2022 ?? TECHNIQUE: Bilateral MLO and CC views were obtained digitally with 3-D mammogram (digital breast tomosynthesis). Computer-aided detection was utilized in evaluation of this exam (CAD). FINDINGS: No new suspicious mass, architectural distortion, or suspicious calcifications. BREAST DENSITY: B - There are scattered areas of fibroglandular density. Procedure Note Donna Paredes MD - 04/26/2024 CLINICAL: 43 years old, Female, routine annual exam. COMPARISON: 03/26/2023 and 02/11/2022 TECHNIQUE: Bilateral MLO and CC views were obtained digitally with 3-Dmammogram (digital breast tomosynthesis). Computer-aided detection wasutilized in evaluation of this exam (CAD). FINDINGS: No new suspicious mass, architectural distortion, or suspiciouscalcifications. BREAST DENSITY: B - There are scattered areas of fibroglandular density. IMPRESSION: No mammographic evidence of malignancy. BI-RADS CATEGORY: 1 - NEGATIVE RECOMMENDATION: Screening bilateral mammogram is recommended in 1 year. -------- FINAL REPORT -------- Dictated By: Donna Paredes Dictated Date: 04/26/2024 16:36 ET Assigned Physician: Donna Paredes Reviewed and Electronically Signed By: Donna Paredes Signed Date: 04/26/2024 16:37 ET Workstation ID: [id number] Transcribed By: Self Edit Transcribed Date: 04/26/2024 16:36 ET Self Referral [facility] IMG BI PROCEDURES Final Resu lt * Cervical Cancer Screening: HPV (02/07/2021) Cervical Cancer Screening: HPV negative abstracted Historical Provider HEALTH MAINTENANCE Final Result from Last 3 Months or Most Recently Relevant to Health Maintenance Insurance [employer] Care Teams Projection Printer Relationship Specialty Start Date End Date Christian Kang MD [address] [place] [address] PCP - General Internal Medicine 11/20/21
--- OUTSIDE RECORDS SUMMARY | 2024-10-05 18:42 | XMS_ITS | Clinical Summary ---
Author Organization [facility] Address [address] [place] [address] Care Team Providers Care Sleeve Maker Name Role Phone Miguel Diallo MD Primary Care Provider [phone] Source Comments PLEASE NOTE, if this patient is a minor, it may be UNLAWFUL to discuss sensitive information that is contained in these records (such as FAMILY PLANNING, MENTAL HEALTH or SUBSTANCE ABUSE) with the minor patient's parent or other person without the patient's specific authorization.[facility] Allergies No known active allergies Medications No known medications Active Problems No known active problems Immunizations Immunization Administration Dates Next Due MMR (MMR II/Priorix) 09/21/2013 PPD 09/21/2013 TDAP 09/21/2013 Family History Medical History Relation Name Comments Diabetes Father High Cholesterol Father High Cholesterol Mother High Cholesterol Sister Relation Name Status Comments Brother Alive Father Alive Mother Alive Sister Alive Social History Tobacco Use Types Packs/Day Years Used Date Smoking Tobacco: Never Alcohol Use Standard Drinks/Week Comments No 0 (1 standard drink = 0.6 oz pur e alcohol) Comments No Sex and Gender Information Value Date Recorded Sex Assigned at Not on file Legal Sex Female 12:07 PM PDT Gender Identity Not on file Sexual Orientation Not on file Last Filed Vital Signs Vital Sign Reading Time Taken Comments Blood Pressure 104/80 09/21/2013 2:58 PM EDT Pulse 60 09/21/2013 2:58 PM EDT Temperature 37.1 ??C (98.7 ??F) 09/21/2013 2:58 PM ED T Respiratory Rate 12 09/21/2013 2:58 PM EDT Oxygen Saturation - - Inhaled Oxygen Concentration - - Weight 80.7 kg (178 lb) 09/21/2013 2:58 PM EDT Height 170.8 cm (5' 7.25 ) 09/21/2013 2:58 PM ED T Body Mass Index 27.67 09/21/2013 2:58 PM EDT Plan of Treatment Not on file Care Teams Sleeve Maker Relationship Specialty Start Date End Date Miguel Diallo MD [address] [place] [address] PCP - General Internal Medicine 09/21/13
[2024-10-05 19:12] LABS: SLIDE REVIEW VERIFIED
[2024-10-06 11:13] LABS: Complement C3 134 mg/dL (83-193)
[2024-10-06 20:34] LABS: Anti DNA DS Antibody 1 IU/mL
== END 2024-10-05 15:39 | disposition home or self-care (01) ==
LOC: HO.LAB 15:38
PROVIDERS: Visit Provider Student in an Organized Health Care Education/Training Program
DX: M32.9 Systemic lupus erythematosus, unspecified (principal)
CPT/HCPCS: 36415; 80053; 85025; 85652; 86140; 86160; 86225

== ENCOUNTER 2024-10-08 11:45 | Outpatient (REF) | payer OTHER, SELFPAY ==
--- NOTE | ~2024-10-08 | CT_ITS ---
EXAMINATION: CT CHEST WITHOUT [id number] CLINICAL INFORMATION: Interstitial pulmonary disease, unspecified. COMPARISON: None available. TECHNIQUE: Multidetector volumetric CT imaging of the chest was done. Axial MIP volume rendering provided. Sagittal and coronal reformatted images were obtained. This CT examination was performed using dose optimization techniques as appropriate, variously including the following: *Automated exposure control *Adjustment of mA and/or kV according to patient size (this includes techniques or standardized protocols for targeted exams where dose is matched to indication/reason for exam; i.e. extremities or head) *Use of iterative reconstruction technique FINDINGS: LUNGS: No significant emphysema. There are mild subpleural reticular changes in the most dependent lower lobes bilaterally, lingula, and in the right middle lobe. The mid and upper lungs are clear bilaterally. There are no effusions. There is no pneumothorax. There is no significant bronchiectasis. There is no evidence of peribronchovascular interstitial thickening. There is no significant mosaic attenuation. The small airways have a normal appearance without thickening. The central airways are patent. There are no significant groundglass changes. There are no pulmonary nodules. MEDIASTINUM: Thyroid demonstrates an inferior left lobe nodule measuring 1.4 cm in diameter (series 6, image 16). Thyroid is otherwise normal. No abnormal lymphadenopathy of the mediastinum or hilum. The aorta is normal in caliber and course. No aneurysm. The main pulmonary artery is mildly prominent although not pathologically dilated. No esophageal abnormality. The heart size is normal. There is no pericardial effusion. CORONARY ARTERY CALCIFICATION: None visualized on this study. AXILLA/CHEST WALL: There are numerous enlarged lymph nodes in the bilateral subpectoral regions and axillary regions symmetrically. For example, a right subpectoral node measures 1.3 cm in short axis (series 6, image 25). A left subpectoral lymph node measures 8 mm in short axis (series 6, image 26). No additional chest wall or axillary lymphadenopathy UPPER ABDOMEN: No abnormalities. OSSEOUS STRUCTURES: No suspicious lytic or blastic bone lesions. Normal appearance. CT/CT chest wo con - High Res IMPRESSION: 1. Mild basilar subpleural reticular and mild consolidative changes with sparing of the mid and upper lungs. No additional evidence of interstitial lung disease. 2. There is bilateral subpectoral and axillary lymphadenopathy present. These are nonspecific and could be reactive and/or neoplastic. Taken in conjunction with the pulmonary findings, sarcoidosis is a consideration. Percutaneous axillary node biopsy could be considered. 3. There is a left thyroid nodule measuring 1.4 cm in diameter. Recommend correlating with thyroid ultrasound. Electronically signed by: Gustabo Christianson MD 10/08/2024 01:09 PM EDT RP
--- OUTSIDE RECORDS SUMMARY | 2024-10-08 12:46 | XMS_ITS | Clinical Summary ---
Author Organization [facility] Address [address] [place] [address] Care Team Providers Care Leather Products Supervisor Name Role Phone Miguel Diallo MD Primary Care Provider [phone] Source Comments PLEASE NOTE, if this patient [...] of Treatment Not on file Care Teams Leather Products Supervisor Relationship Specialty Start Date End Date Miguel Diallo MD [address] [place] [address] PCP - General Internal Medicine 09/21/13
--- OUTSIDE RECORDS SUMMARY | 2024-10-08 12:46 | XMS_ITS | Data Portability ---
Author Organization [facility], [address] Address [address] [place] [address] Assessment No assessment recorded. Plan of Treatment Reminders Order Date Submit Date Provider Last Modified By Organization Details Last Modified Time Details Appointments None recorded. Lab None recorded. Referral neurologist referral 2022 023 [email or web address] 26 [facility], [address] [facility] [address], [place], [address], 07:56:57 Procedures None recorded. Surgeries None recorded. Imaging None recorded. Medication Orders ketorolac 60 mg/2 mL intramuscul ar solution 2022 023 [email or web address] 247 Not available 18:20:58 acetaminoph en 325 mg tablet 2022 023 [email or web address] 247 Not available 18:20:58 Patient TargetsNo targets recorded. Patient Instructions Encounter Date Encounter Id Patient Instructions Last Modified By Organization Details Last Modified Time 10/14/2022 [id number] If the pain does not respond to the treatment plan or gets worse go to directly to the ER for further evaluation and management. [email or web address] Not available 10/14/2022 18:29:21 We attempted to connect with her neurologist with no success. I explained that while she is waiting for her PCP and Neurology appointment, if her pain increases, or she develops additional symptoms she needed to go directly to the ER for additional evaluation and management and connection with a specialist. [email or web address] Not available 11/07/2022 13:40:06 Reason for Referral Neurologist Referral for Hea dache Referring Physician: [facility], Encounter Date: 10/14/2022 Problems Name Problem SNOMED Code Status Onset Date Resolution Date Notes Provider Name and Address Organization Details Recorded Time Lupus erythematosus 660542151 Active 2022 TORIN REILLY flores PA - [facility] 3 16:37:03 Uterine leiomyoma 51336975 Active 2022 [facility]ores [facility] - [facility] [...] Updated DateTime 3 170.18 cm 27.9 kg/m2 21078.4 4 g 9 17 /min 100 % [...] Use Any Illicit Or Recreational Drugs? No [email or web address] Information not available 10/14/2022 Have You Recently Traveled Abroad? No [email or web address] Information not available 10/14/2022 Do You Or Have You Ever Used Any Other Forms Of Tobacco Or Nicotine? No [email or web address] Information not available 10/14/2022 Sex: Unknown Functional Status None recorded. Mental Status None recorded. Family History Relationship Description Onset Age of this Age Resolved Age Notes LastModified by Organization Details LastModified Time Father No current problems or disability [email or web address] Not available 10/14 16:37:41 Mother No current problems or disability [email or web address] Not available 10/14 16:37:41 Medical History No medical history recorded. Gynecological HistoryNo gynecological history recorded. Obstetrics History GPAL:G 0 P 0 0 0 0 Past Encounters Encounter ID Performer Location Encounter Start Date Encounter Closed Date Diagnosis/Indication Diagnosis SNOMED-CT Code Diagnosis ICD10 Code Diagnosis Note [id number] [address] [place] [address] 0 03/03/2015 19:37:45 03/03/2015 20:22:06 [id number] [address] [place] [phone] 0 11/28/2020 17:26:33 11/28/2020 18:31:22 [id number] [address] [place] [address] 01/25/2021 17:28:28 01/25/2021 19:20:42 [id number] [address] [place] [address] 05/12/2021 13:01:07 05/12/2021 15:38:16 [id number] KARYN GIPSON MD [address] [place] [address] 10/14/2022 16:32:00 10/14/2022 18:32:39 Migraine 09468589 G43.909 ibuprofen 600 mg every 8 hrs. Headache 03215231 R51.9 Health Concerns Section Related Observation LastModified by Organization Detai ls LastModified Time None Recorded Concern Status LastModified by Organization Details LastModified Time None Recorded Advance Directives Directive None Recorded Payers Encounter Date Sequence Insurance Name Policy Number Policy Arroyo Covered Member ID Arroyo Member ID Guarantor Name 03/03/2015 1 [facility] [id number] Yuli Quinn [id number] Yuli Quinn 11/28/2020 1 [facility] [id number] Yuli Quinn [id number] 1 [id number] Yuli Quinn 01/25/2021 1 [facility] [id number] Yuli Quinn [id number] 1 [id number] Yuli Quinn 05/12/2021 1 [facility] [id number] Yuli Quinn [id number] 1 [id number] Yuli Quinn 10/14/2022 1 [facility] [id number] Yuli Quinn [id number] Yuli Quinn Notes Date Note Type Note [...] KARYN GIPSON MD [address] [place], [address], [place] - [facility] 11/07/2022 13:40:38 OBGyn Episode No OBEpisode recorded.
--- OUTSIDE RECORDS SUMMARY | 2024-10-08 12:46 | XMS_ITS | Clinical Summary ---
Author Organization [facility] [address] [place] [address] Address [address] [facility] [address] Phone Care Team Providers Care Central Processing Tech Name Role Phone Christian Kang MD Primary Care Provider [phone] Allergies No known active allergies Medications aspirin [...] anemia 05/31/2024 Overview (05/31/2024): Presumed due to WAX PATTERN COATER loss Class 1 obesity 05/31/2024 Uterine leiomyoma [...] and agreed. SLE (systemic lupus erythema tosus) ([facility] V24, [facility] V28) 09/24/2019 Overview (05/31/2024): 2017 - initially saw Dr. Stevenson at [place] Alopecia, arthralgia, mild leukopenia Plaquenil since 2016. Eye exam December,, December 20202019: anti DNA, C3, C4 normal. 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 Milian on doxycycline and minoxidil cream Alopecia of scalp 11/19/2016 Pseudotumor cerebri 09/02/2016 Overview (05/31/2024): ~ 2017 did see neurology Major depression 10/06/2014 Encounters Date Type Department Care Team Description 09/15/2024 6:22 PM EDT - 09/15/2024 11:59 PM EDT Hospital Encounter Radiology Department - [address] [phone] Uterine leiomyoma, unspecified location Discharge Disposition: Home or Self Care 09/06/2024 1:30 PM EDT Office Visit Obstetrics and Gynecology - [address] [phone] Fariba Callaway CNM Encounter for annual routine [...] COMMENT: myomectomy OTHER SURGICAL HISTORY 03/2012 PROCEDURE: CO MYOMECTOMY 1-4 MYOMAS W/250 GM/< ABDOMINAL APPR OTHER SURGICAL HISTORY PROCEDURE: URETHRAL INSERT OTHER SURGICAL HISTORY 08/22/2017 PROCEDURE: CO HYSTEROSCOPY REMOVAL LEIOMYOMATA Medical History Medical History [...] Signed Date: 09/16/2024 09:59 ET Workstation ID: [id number] Transcribed By: Self Edit Transcribed Date: 09/16/2024 [...] Signed Date: 09/16/2024 09:59 ET Workstation ID: [id number] Transcribed By: Self Edit Transcribed Date: 09/16/2024 09:26 ET us Fariba Callaway CNM IMG US PROCEDURES Final Result * Venipuncture charge (09/07/2024 12:41 PM EDT) Extra Tube Hold for add-ons. 09/07/2024 2:01 PM EDT [facility]) Comment:Auto resulted. Blood Venous blood specimen / Unknown Venipuncture / Unknown 09/07/2024 12:41 PM EDT 09/07/2024 12:41 PM EDT us Fariba Callaway CNM LAB BLOOD ORDERABLES Final Resu lt [facility] (BEAKER), * (ABNORMAL) Complete blood count (09/07/2024 12:41 PM EDT) [facility] WBC 3.0(L) 4.8 - 10.8 K/mcL LAB HEMETOLOGY METHOD 09/07/2024 2:17 PM [facility] RBC 4.00 3.80 - 4.80 M/mcL LAB HEMETOLOGY METHOD 09/07/2024 2:17 PM EDT [facility] Hemoglobin 8.7(L) 11.5 - 16.0 g/dL LAB HEMETOLOGY METHOD 09/07/2024 2:17 PM EDT [facility] Hematocrit 29.0(L) 35.0 - 47.0 % LAB HEMETOLOGY METHOD [facility]07[facility]24 [facility] MCV 72.3(L) 79.0 - 98.0 FL LAB HEMETOLOGY METHOD 09/07/2024 2:[facility] MCH 21.7(L) 27.0 - 32.0 pcg LAB HEMETOLOGY METHOD 09/07/2024 2:[facility] MCHC 30.0(L) 32.0 - 37.0 g/dL LAB HEMETOLOGY METHOD 09/07/2024 2:17 PM [facility] RDW 15.6(H) 11.0 - 15.0 % LAB HEMETOLOGY METHOD 09/07/2024 2:17 PM EDT [facility] Platelets 318 130 - 400 K/mcL LAB HEMETOLOGY METHOD 09/07/2024 2:17 PM [facility] MPV 11.0 7.0 - 11.0 FL LAB HEMETOLOGY METHOD 09/07/2024 2:[facility] NRBC 0.0 <1.0 % LAB HEMETOLOGY METHOD [facility]07[facility]24 2:[facility] NRBC Absolute 0.00 <0.10 K/mcL LAB HEMETOLOGY METHOD 09/07/2024 2:17 PM EDT [facility] Blood Venous blood specimen / Unknown Venipuncture / Unknown 09/07/2024 12:41 PM EDT 09/07/2024 12:41 PM EDT us Fariba Callaway [facility] LAB BLOOD ORDERABLES Final Resu lt [facility]) [facility] [address] [place] [address], [place] [phone] * MG Mammo Digital Screening w Tawanda [...] Signed Date: 04/26/2024 16:37 ET Workstation ID: [id number] Transcribed By: Self Edit Transcribed Date: 04/26/2024 [...] Signed Date: 04/26/2024 16:37 ET Workstation ID: [id number] Transcribed By: Self Edit Transcribed Date: 04/26/2024 16:36 ET Self Referral scm IMG BI PROCEDURES Final Resu lt * Cervical Cancer Screening: HPV (02/07/2021) Cervical Cancer Screening: HPV negative abstracted Historical Provider HEALTH MAINTENANCE Final Result from Last 3 Months or Most Recently Relevant to Health Maintenance Insurance [employer] Care Teams Central Processing Tech Relationship Specialty Start Date End Date Christian Kang MD [address] [place] [address] PCP - General Internal Medicine 11/20/21
--- OUTSIDE RECORDS SUMMARY | 2024-10-08 12:46 | XMS_ITS | Clinical Summary ---
Author Organization [facility] Address [address] [place] [address] Care Team Providers Care Applied Marine Physics Professor Name Role Phone Christian Kang MD Primary Care Provider [phone] Allergies No known active allergies Medications Medication [...] age to complete this topic Care Teams Applied Marine Physics Professor Relationship Specialty Start Date End Date Christian Kang MD PCP - General Internal Medicine 11/20/21
== END 2024-10-08 11:46 | disposition home or self-care (01) ==
LOC: HO.CT 11:45
PROVIDERS: Visit Provider Student in an Organized Health Care Education/Training Program
DX: J84.9 Interstitial pulmonary disease, unspecified (principal); M32.9 Systemic lupus erythematosus, unspecified
CPT/HCPCS: 71250

== ENCOUNTER → 2024-10-08 11:47 | Outpatient (BNV) | payer OTHER, SELFPAY | PROVIDERS: Visit Provider Radiology Diagnostic Radiology | DX: R59.9 Enlarged lymph nodes, unspecified (principal); E04.1 Nontoxic single thyroid nodule | CPT/HCPCS: 71250 ==

== ENCOUNTER 2024-10-25 12:25 | Outpatient (REF) | payer OTHER, SELFPAY ==
[2024-10-25 12:37] LABS: MANUAL DIFF FLAG NO
[2024-10-25 12:52] LABS: Basophils Percent Auto 0.2 % (0-2); Eosinophils Percent Auto 0.4 % (0-4); Hematocrit 32.8 % (37.0-47.0); Imm Gran Abs Auto 0.01 X10*3/uL (0.00-0.03); Imm Gran Pct Auto 0.2 % (0.0-0.4); Lymphocytes Absolute Auto 1.3 X10*3/uL (1.2-4.9); Lymphocytes Percent Auto 27.2 % (20-40); Mean Corpuscular HGB Conc 30.5 g/dl (31.0-35.0); Mean Corpuscular Hemoglobin 22.8 pg (27.0-33.0); Mean Corpuscular Volume 74.7 fL (80.0-98.0); Mean Platelet Volume 10.4 fL (9.4-12.3); Monocytes Absolute Auto 0.6 X10*3/uL (0.1-1.2); Monocytes Percent Auto 12.2 % (2-11); Neutrophils Percent Auto 59.8 % (45-73); Platelet Count 308 X10*3/uL (160-400); Red Blood Count 4.39 X10*6/uL (4.20-5.50); Red Cell Distribution Width 20.9 % (11.0-16.0); White Blood Count 4.9 X10*3/uL (4.8-10.8)
[2024-10-25 12:57] LABS: Appearance Urine Clear; Color Urine Yellow; Glucose Urine UA Negative (Negative); Leukocyte Esterase Urine Negative (Negative); Nitrite Urine Negative (Negative); Specific Gravity - Urine 1.025 (1.005-1.025); UMIC TRIGGER UA YES; Urine Blood Negative (Negative); Urine Ketones Trace mg/dL (Negative); Urine Protein 30 (1+) mg/dL (Neg-Trace)
[2024-10-25 13:07] LABS: Bacteria Urine None Seen (None Seen); Hyaline Casts Urine 0-2 /LPF (0-2); RBC Urine 0-2 /HPF (0-2); Squamous Epithelial Cell Urine 0-2 /HPF (0-2); WBC Urine 0-5 /HPF (0-5)
[2024-10-25 13:13] LABS: Alanine Aminotransferase 19 U/L (0-31); Albumin Level 3.7 g/dL (3.5-5.0); Alkaline Phosphatase 64 U/L (39-117); Anion Gap 11 (12-20); Aspartate Amino Transferase 21 U/L (5-31); Bilirubin Total 0.2 mg/dL (0.0-1.0); Blood Urea Nitrogen 13 mg/dL (9-16); C Reactive Protein 0.41 mg/dL (< or = 0.50); Calcium 8.9 mg/dL (8.4-10.2); Carbon Dioxide 25 mmol/L (22-29); Chloride 107 mmol/L (96-108); Estimated Glomerular Filt Rate > 60; Glucose Random 84 mg/dL (60-115); Potassium 3.6 mmol/L (3.3-5.1); Sodium 139 mmol/L (135-145); Total Protein 7.7 g/dL (6.5-8.0)
[2024-10-25 13:20] LABS: Creatinine Urine 201.47 mg/dL; Protein/Creatinine Ratio, Ur 0.07 (<0.2); Total Protein Urine Random 15 mg/dL (<12)
[2024-10-25 13:32] LABS: Erythrocyte Sedimentation Rate 23 MM/HR (0-20)
--- OUTSIDE RECORDS SUMMARY | 2024-10-25 13:51 | XMS_ITS | Data Portability ---
Author Organization [facility], [address] Address [address] [place] [address] Assessment No assessment recorded. Plan of Treatment Reminders Order Date Submit Date Provider Last Modified By Organization Details Last Modified Time Details Appointments None recorded. Lab None recorded. Referral neurologist referral 2022 023 [email or web address] 26 [facility], [address] [facility] [address], [place], [address], 07:56:57 Procedures None recorded. Surgeries None recorded. Imaging None recorded. Medication Orders ketorolac 60 mg/2 mL intramuscul ar solution 2022 023 [email or web address] Not available 18:20:58 acetaminoph en 325 mg tablet 2022 023 [email or web address] 247 Not available 18:20:58 Patient TargetsNo targets recorded. Patient Instructions Encounter Date Encounter Id Patient Instructions Last Modified By Organization Details Last Modified Time 10/14/2022 [id number] If the pain does not respond to the treatment plan or gets worse go to directly to the ER for further evaluation and management. [email or web address] Not available 10/14/2022 18:29:21 We attempted to connect with her neurologist with no success. I explained that while she is waiting for her PCP and Neurology appointment, if her pain increases, or she develops additional symptoms she needed to go directly to the ER for additional evaluation and management and connection with a specialist. [email or web address] Not available 11/07/2022 13:40:06 Reason for Referral Neurologist Referral for Hea dache Referring Physician: [facility], Encounter Date: 10/14/2022 Problems Name Problem SNOMED Code Status Onset Date Resolution Date Notes Provider Name and Address Organization Details Recorded Time Lupus erythematosus 804105779 Active 2022 TORIN REILLY flores PA - [facility] 3 16:37:03 Uterine leiomyoma 82846260 Active 2022 [facility] - [facility] [...] Updated DateTime 3 170.18 cm 27.9 kg/m2 97312.4 4 g 9 17 /min 100 % 100 % 84 /min 98.3 [degF] 122 mm[Hg] 82 mm[Hg] TORIN RAHMANEY PA - [facility] 3 16:39:08 Social History Question Answer Notes LastModified by Organizat ion Details LastModified Time Tobacco Smoking Status Never Smoker TORIN REILLY flores PA - [facility] 10/14/2022 16:37:59 What Is Your Level Of Alcohol Consumption? Occasional [email or web address] Information not available 10/14/2022 Do You Use Any Illicit Or Recreational Drugs? No [email or web address] Information not available 10/14/2022 Have You Recently Traveled Abroad? No [email or web address] Information not available 10/14/2022 Do You Or Have You Ever Used Any Other Forms Of Tobacco Or Nicotine? No [email or web address] Information not available 10/14/2022 Sex: Unknown Functional Status None recorded. Mental Status None recorded. Family History Relationship Description Onset Age of this Age Resolved Age Notes LastModified by Organization Details LastModified Time Father No current problems or disability [email or web address] Not available 10/14 16:37:41 Mother No current problems or disability [email or web address] Not available 10/14 16:37:41 Medical History No medical history recorded. Gynecological HistoryNo gynecological history recorded. Obstetrics History GPAL:G 0 P 0 0 0 0 Past Encounters Encounter ID Performer Location Encounter Start Date Encounter Closed Date Diagnosis/Indication Diagnosis SNOMED-CT Code Diagnosis ICD10 Code Diagnosis Note [id number] [address] [place] [address] 03/03/2015 19:37:45 03/03/2015 20:22:06 [id number] [address] [place] [address] 11/28/2020 17:26:33 11/28/2020 18:31:22 [id number] [address] [place] [address] 01/25/2021 17:28:28 01/25/2021 19:20:42 [id number] [address] [place] [address] 05/12/2021 13:01:07 05/12/2021 15:38:16 [id number] KARYN GIPSON MD [address] [place] [address] 10/14/2022 16:32:00 10/14/2022 18:32:39 Migraine 70660799 G43.909 ibuprofen 600 mg every 8 hrs. Headache 39354444 R51.9 Health Concerns Section Related Observation LastModified by Organization Detai ls LastModified Time None Recorded Concern Status LastModified by Organization Details LastModified Time None Recorded Advance Directives Directive None Recorded Payers Encounter Date Sequence Insurance Name Policy Number Policy Arroyo Covered Member ID Arroyo Member ID Guarantor Name 03/03/2015 1 [facility] [id number] Yuli Quinn [id number] Yuli Quinn 11/28/2020 1 [facility] [id number] Yuli Quinn [id number] 1 [id number] [facility] 01/25/2021 1 [facility] [id number] Yuli Quinn [id number] Yuli Quinn 05/12/2021 1 [facility] [id number] Yuli Quinn [id number] 1 [id number] Yuli Quinn 10/14/2022 1 [facility] [id number] Yuli Quinn [id number] Yuliearle Quinn Notes Date Note Type Note Provider [...] chemicals or medications. KARYN GIPSON MD [address] [facility] [place], [address], [place] - [facility] 11/07/2022 13:40:38 OBGyn Episode No OBEpisode recorded.
--- OUTSIDE RECORDS SUMMARY | 2024-10-25 13:51 | XMS_ITS | Clinical Summary ---
Author Organization [facility] Address [address] [place] [address] Care Team Providers Care Supervisor Purification Name Role Phone Miguel Diallo MD Primary Care Provider [phone] Source Comments PLEASE NOTE, if this patient [...] of Treatment Not on file Care Teams Supervisor Purification Relationship Specialty Start Date End Date Miguel Diallo MD [address] [place] [address] PCP - General Internal Medicine 09/21/13
--- OUTSIDE RECORDS SUMMARY | 2024-10-25 13:52 | XMS_ITS | Clinical Summary ---
Author Organization [facility] Address [address] [place] [address] Care Team Providers Care Spooler Rubber Strand Name Role Phone Christian Kang MD Primary Care Provider [phone] Allergies No known active allergies Medications Medication [...] age to complete this topic Care Teams Spooler Rubber Strand Relationship Specialty Start Date End Date Christian Kang MD PCP - General Internal Medicine 11/20/21
--- OUTSIDE RECORDS SUMMARY | 2024-10-25 13:52 | XMS_ITS | Clinical Summary ---
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 Idiopathic intracranial hypertension 05/31/2024 Proteinuria 05/31/2024 Iron deficiency anemia 05/31/2024 Overview (05/31/2024): Presumed due to SHANK CEMENTER HAND loss Class 1 obesity 05/31/2024 Uterine leiomyoma [...] and agreed. SLE (systemic lupus erythema tosus) ([facility] V24, [facility] V28) 09/24/2019 Overview (05/31/2024): 2016 - initially saw Dr. Stevenson at [facility] Alopecia, arthralgia, mild leukopenia Plaquenil since 2016. Eye exam December,, December 20202019: anti DNA, C3, C4 normal. 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 Milian on doxycycline and minoxidil cream Alopecia of scalp 11/19/2016 Pseudotumor cerebri 09/02/2016 Overview (05/31/2024): ~ 2017 did see neurology Major depression 10/06/2014 Encounters Date Type Department Care Team Description 09/15/2024 6:22 PM EDT - 09/15/2024 11:59 PM EDT Hospital Encounter Radiology Department - [address] [phone] Uterine leiomyoma, unspecified location Discharge Disposition: Home or Self Care 09/06/2024 1:30 PM EDT Office Visit Obstetrics and Gynecology - [address] [phone] Fariba Callaway CNM Encounter for annual routine [...] COMMENT: myomectomy OTHER SURGICAL HISTORY 03/2012 PROCEDURE: AK MYOMECTOMY 1-4 MYOMAS W/250 GM/< ABDOMINAL APPR OTHER SURGICAL HISTORY PROCEDURE: URETHRAL INSERT OTHER SURGICAL HISTORY 08/22/2017 PROCEDURE: AK HYSTEROSCOPY REMOVAL LEIOMYOMATA Medical History Medical History [...] Td or Tdap) 09/22/2023 09/21/2013 COVID-19 Vaccine ( - 2023-2 5 season) 2024 07/14/2021, 10/25/2020, [...] Procedure Name Priority Date/Time Associated Diagnosis Comments EMPOWER SHANK CEMENTER HAND GUIDELINES 2, 17 Routine 09/22/2024 3:28 PM EDT US PELVIS NON OB COMPLETE W TRANSVAGINAL [...] Recently Relevant to Health Maintenance Results * EMPOWER SHANK CEMENTER HAND GUIDELINES (2+17) (09/22/2024 3:28 PM EDT) Blood Venous blood specimen / Unknown us Fariba Callaway [facility] MOLECULAR DIAGNOSTICS ORDER JAZMÍN Final Result * US Pelvis Non OB Complete w [...] Signed Date: 09/16/2024 09:59 ET Workstation ID: [id number] Transcribed By: Self Edit Transcribed Date: 09/16/2024 [...] -------- FINAL REPORT -------- Dictated By: Jean Signh Dictated Date: 09/16/2024 09:22 ET Assigned Physician: Jean Singh Reviewed and Electronically Signed By: eJan Singh Signed Date: 09/16/2024 09:59 ET Workstation ID: [id number] Transcribed By: Self Edit Transcribed Date: 09/16/2024 09:26 ET us Fariba Callaway CNM IM US PROCEDURES Final Result * Venipuncture charge (09/07/2024 12:41 PM EDT) [facility] Extra Tube Hold for add-ons. 09/07/2024 2:[address] [facility] YUAN) Comment:Auto resulted. Blood Venous blood specimen / Unknown Venipuncture / Unknown 09/07/2024 12:41 PM EDT 09/07/2024 12:41 PM EDT us Fariba YBARRA LAB BLOOD ORDERABLES Final Resu lt [facility] (AMY) DE, US * (ABNORMAL) Complete blood count (09/07/2024 12:41 PM EDT) [facility] WBC 3.0(L) 4.8 - 10.8 K/mcL LAB HEMETOLOGY METHOD 09/07/2024 2:[address] [facility] RBC 4.00 3.80 - 4.80 M/mcL LAB HEMETOLOGY METHOD 09/07/2024 2:[address] [facility] Hemoglobin 8.7(L) 11.5 - 16.0 g/dL LAB HEMETOLOGY METHOD 09/07/2024 2:[address] [facility] Hematocrit 29.0(L) 35.0 - 47.0 % LAB HEMETOLOGY METHOD 09/07/2024 2:[address] [facility] MCV 72.3(L) 79.0 - 98.0 FL LAB HEMETOLOGY METHOD 09/07/2024 2:[address] [facility] MCH 21.7(L) 27.0 - 32.0 pcg LAB HEMETOLOGY METHOD 09/07/2024 2:[address] [facility] MCHC 30.0(L) 32.0 - 37.0 g/dL LAB HEMETOLOGY METHOD 09/07/2024 2:[address] [facility] RDW 15.6(H) 11.0 - 15.0 % LAB HEMETOLOGY METHOD 09/07/2024 2:[address] [facility] Platelets 318 130 - 400 K/mcL LAB HEMETOLOGY METHOD 09/07/2024 2:[address] [facility] MPV 11.0 7.0 - 11.0 FL LAB HEMETOLOGY METHOD 09/07/2024 2:[address] [facility] NRBC 0.0 <1.0 % LAB HEMETOLOGY METHOD 09/07/2024 2:[address] [facility] NRBC Absolute 0.00 <0.10 K/mcL LAB HEMETOLOGY METHOD 09/07/2024 2:[address] [facility] Blood Venous blood specimen / Unknown Venipuncture / Unknown 09/07/2024 12:41 PM EDT 09/07/2024 12:41 PM EDT us Fariba Callaway [facility] BLOOD ORDERABLES Final Resu lt [facility] [address] [place] [address], * MG Mammo Digital Screening w Tawanda [...] Signed Date: 04/26/2024 16:37 ET Workstation ID: [id number] Transcribed By: Self Edit Transcribed Date: 04/26/2024 [...] Signed Date: 04/26/2024 16:37 ET Workstation ID: [id number] Transcribed By: Self Edit Transcribed Date: 04/26/2024 16:36 ET us Self Referral [facility] IMG BI PROCEDURES Final Resu lt * Cervical Cancer Screening: HPV (02/07/2021) Pathologist [facility] Cervical Cancer Screening: HPV negative abstracted Historical Provider HEALTH MAINTENANCE Final Result from Last 3 Months or Most Recently Relevant to Health Maintenance Insurance [employer] Care Teams Dope Edger Relationship Specialty Start Date End Date Christian Kang MD [address] [place] [address] [place] [id number] PCP - General Internal Medicine 11/20/21
== END 2024-10-25 12:26 | disposition home or self-care (01) ==
LOC: HO.LAB 12:25
PROVIDERS: Visit Provider Student in an Organized Health Care Education/Training Program
DX: M32.9 Systemic lupus erythematosus, unspecified (principal)
CPT/HCPCS: 36415; 80053; 81001; 82570; 84156; 85025; 85652; 86140

== ENCOUNTER 2024-10-26 10:01 | Outpatient (AMB) | payer OTHER, SELFPAY ==
--- NOTE | 2024-10-26 10:03 | A.OFFVIS_ITS ---
Vital Signs 10/26/24 10:09 Height 5 ft 8 in Weight 196 lb 10.437 oz BMI 29.9 BP 115/64 Blood Pressure Location Lt brachial Position Sitting Pulse 86 Pulse Source Pulse Oximeter Pulse Oximetry (%) 99 Oxygen Delivery Method Room Air Intake Visit Reasons: SLE Intake Note: Patient presents for SLE follow up. Allergies No Known Allergies Allergy (Verified 10/26/24 10:08) Medication List - Last Reconciled 10/26/24 by Isabella Hardy MD aspirin 81 mg PO DAILY cholecalciferol (vitamin D3) 25 mcg PO DAILY ferrous sulfate 325 mg PO DAILY fluticasone propionate 50 mcg/actuation 1 spray intranasal BID 7 days hydroxychloroquine 200 mg PO BID multivitamin 1 tab PO DAILY vitamin B complex (B Complex-Vitamin B12 tablet) 1 tab PO DAILY HPI Comments Details: Patient is a 43-year-old female with iron-deficiency anemia secondary to uterine fibroids, systemic lupus erythematosus and history of CVA ?SLE related here today for follow up Interval History: Patient last seen 06/29/[address] Treviño. At that time she was following up f or her lupus on 400 mg of hydroxychloroquine daily. No changes were made to her medication at that time. She reached out to the office 10/05/2024 complaining of chest pain and concern for possible lung infection. She was seen at [facility] and [facility] in [place]. They did a chest x-ray which was concerning for possible lung infection versus given 7 day course of doxycycline. Because of her history of SLE an urgent CT was ordered. A CT scan did not show any evidence of pleural effusion, pericardial effusion or infiltrate but there were several reactive lymph nodes noted. 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 residual memory deficits. Workup with CT angiogram of the head and neck was normal. 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 Per patient subsequent JOSE D was negative. CSF showed no leukocytosis, normal protein, slightly elevated IgG., studies for lupus anticoagulant and anti cardiolipin antibodies were negative. Initial history with Dr. Treviño 09/2023: This is a 42-year-old female who presents for evaluation of SLE. She states that she has been doing fairly well. Except for symptoms of a head cold that started a few days ago. She is currently on her period. She states that she was recently evaluated by her novelty printing machine operator and was told that she has protein in the urine. She states that she had extensive testing by the novelty printing machine operator and no hypercoagulable order was found. Last year when she was found to have a stroke, 2D echo showed possible interatrial septum aneurysm however according to patient the transesophageal echo was unremarkable. She also had CT arterial and venogram of her head which were unremarkable. Patient stated that when initially diagnosed with lupus around 2017 she was started on hydroxychloroquine Twice daily. Last year it was reduced to 1 tab daily. Afterwards she was having a headache and workup eventually showed an old stroke. It does not look like patient had any neurological deficits. Hydroxychloroquine was increased back to 2 tabs daily. She stated that since she started hydroxychloroquine in 2018 the hair loss and skin rashes have improved. She states that she might be going back for another fibroid surgery as she continues to have significant menstrual bleeding. Has no other complaints today Current Rheumatology Medication(s): Plaquenil 400mg daily Prednisone taper PFSH Medical History Iron deficiency anemia Surgical History H/O myomectomy Family History Father Diabetes Mother Breast cancer Maternal Grandmother Breast cancer Social History Household Members Other:: lives alone Housing: Condominium Are you a primary congregational care pastor to a significant other at home: No Do you presently have visiting nurse or other home services: No 75 years or older and lives alone: No Alcohol intake: current Alcohol intake frequency: holidays/special occasions only Alcohol type: wine Patient Tobacco Use Status: Never used Tobacco e-Cigarette/Vaping Use: Never Used Second Hand Smoke Exposure: No Current occupational status: employed Review of Systems Const Details: Review of Systems Constitutional: Denies fever, chills, weight loss ENT: Denies vision changes, eye pain or eye redness, dental caries, dry mouth GI: Denies nausea, vomiting, diarrhea, abdominal pain, change in BM Pulm: Denies SOB, CHRISTIANSON, hemoptysis, wheezing Cards: Denies chest pain, palpitations Skin: Denies Raynaud's, rash, nail changes, photosensitivity, NEW HOME SALES CONSULTANT: Denies headaches, weakness, paresthesias, recurrent falls MSK: as per HPI All other systems reviewed and are unremarkable except noted above Physical Exam Vital Signs: Last Vital Signs Pulse 86 10/26/24 10:09 BP 115/64 10/26/24 10:09 BMI result Body Mass Index 29.9 Vital signs reviewed Physical Examination CONSTITUITIONAL Patient alert and cooperative. Well appearing and in no apparent painful distress HEENT Conjunctiva and sclera clear. ?Pupils equal round and reactive to light. ?No lymphadenopathy. ? CHEST/RESPIRATORY SYSTEM Normal respiratory effort and able to speak in complete sentences. ?Clear to auscultation bilaterally. ?No crackles, rales, rhonchi, wheezes heard. CARDIAC SYSTEM Regular rate and rhythm. ?S1 and S2 heard no murmurs. ?Radial pulses intact bilaterally MSK Hands: ?Able to make a fist. No synovitis noted to the MCPs, PIPs or DIPs. ?No tenderness to palpation of these joints. No deformities noted. ? Wrists: ?Full range of motion at the wrists without pain. ?No tenderness to palpation or synovitis noted to the wrists. Elbows: Full range of motion without pain. No tenderness, weakness, swelling, increased warmth or erythema. Shoulders: Full range of active range of motion without pain. No tenderness, weakness, swelling, increased warmth or erythema. Hips: Full range of motion without pain. Hip bursa: No tenderness to palpation Knees: ?Full range of motion. ?No tenderness, swelling, increased warmth or erythema.?Crepitations felt bilaterally Ankles: Full range of motion. ?No tenderness, swelling, increased warmth or er ythema.? Feet: ?Negative squeeze test. ?No tenderness to palpation or swelling of the MTPs. Tender points:?No tenderness to palpation of the bilateral trapezius, supraspinatus, greater trochanters, anterior costochondral junctions, bilateral gluteal areas, bilateral suboccipital muscle insertions SKIN Skin intact without rashes. Results Reviewed Results Reviewed: Laboratory Tests 10/25/24 12:32 WBC 4.9 RBC 4.39 Hgb 10.0 L Hct 32.8 L Plt Count 308 D ESR 23 H Sodium 139 Potassium 3.6 Chloride 107 Carbon Dioxide 25 BUN 13 Creatinine 0.71 AST 21 ALT 19 Alkaline Phosphatase 64 C-Reactive Protein 0.41 Immunology labs 06/29/24 10/05/24 14:46 16:03 Double Strand DNA Ab 1 1 Complement C3 110 134 Complement C4 13 L 15 Urine studies 10/25/24 12:30 Urine Protein 30 (1+) H Urine Blood Negative Protein/Creatinin Ratio 0.07 CT Chest 09/2024 FINDINGS: LUNGS: No significant emphysema. There are mild subpleural reticular changes in the most dependent lower lobes bilaterally, lingula, and in the right middle lobe. The mid and upper lungs are clear bilaterally. There are no effusions. There is no pneumothorax. There is no significant bronchiectasis. There is no evidence of peribronchovascular interstitial thickening. There is no significant mosaic attenuation. The small airways have a normal appearance without thickening. The central airways are patent. There are no significant groundglass changes. There are no pulmonary nodules. MEDIASTINUM: Thyroid demonstrates an inferior left lobe nodule measuring 1.4 cm in diameter (series 6, image 16). Thyroid is otherwise normal. No abnormal lymphadenopathy of the mediastinum or hilum. The aorta is normal in caliber and course. No aneurysm. The main pulmonary artery is mildly prominent although not pathologically dilated. No esophageal abnormality. The heart size is normal. There is no pericardial effusion. CORONARY ARTERY CALCIFICATION: None visualized on this study. AXILLA/CHEST WALL: There are numerous enlarged lymph nodes in the bilateral subpectoral regions and axillary regions symmetrically. For example, a right subpectoral node measures 1.3 cm in short axis (series 6, image 25). A left subpectoral lymph node measures 8 mm in short axis (series 6, image 26). No additional chest wall or axillary lymphadenopathy UPPER ABDOMEN: No abnormalities. OSSEOUS STRUCTURES: No suspicious lytic or blastic bone lesions. Normal appearance. IMPRESSION: 1. Mild basilar subpleural reticular and mild consolidative changes with sparing of the mid and upper lungs. No additional evidence of interstitial lung disease. 2. There is bilateral subpectoral and axillary lymphadenopathy present. These are nonspecific and could be reactive and/or neoplastic. Taken in conjunction with the pulmonary findings, sarcoidosis is a consideration. Percutaneous axillary node biopsy could be considered. 3. There is a left thyroid nodule measuring 1.4 cm in diameter. Recommend correlating with thyroid ultrasound. 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 Having some respiratory concerns with this has improved on the prednisone taper. Her blood work in June was significant for a low C4 which improved in September. No current hip complaints but gets intermittent hip pain especially when she is on vacation. We will check XRs Plan - Plaquenil 400mg daily. Weight based - Complete prednisone taper - XR hips - RTC 4 months - Labs before visit: CBC, CMP, ESR, CRP, C3, C4, dsDNA, UA, UPC (2) Thyroid Nodule: Code(s): E04.1 - Nontoxic single thyroid nodule Plan: #Thyroid nodule Thyroid nodule noted on CT chest. We will get thyroid ultrasound (3) Long-term use of hydroxychloroquine: Comment: Eye exam 02/2024 OK Code(s): Z79.899 - Other computer terminal operator (current) drug therapy Category: Medical Plan: #Long-term Use of Hydroxychloroquine Discussed with patient the risks and benefits of hydroxychloroquine in managing the rheumatic condition Benefits include: - Reduced pain, reduce mortality, maintenance of remission and reduction of flares Risks include: - GI upset, skin hyperpigmentation, retinal toxicity (especially after more than 5 years of use), myopathy Advised yearly ophthalmology visits Last ophthalmology visit: 02/2024 Plan I spent 35 minutes reviewing the record and labs, taking a history, examining the patient, discussing the treatment plan, ordering diagnostic work up and documenting in the medical record Orders: Orders Complement C3 4 Months M32.9 - Systemic lupus erythematosus, unspecified Comprehensive Met. Panel 4 Months M32.9 - Systemic lupus erythematosus, unspecified C Reactive Protein 4 Months M32.9 - Systemic lupus erythematosus, unspecified UA w Microscopic 4 Months M32.9 - Systemic lupus erythematosus, unspecified Protein Creatinine Ratio, Ur 4 Months M32.9 - Systemic lupus erythematosus, unspecified Anti DNA DS Antibody 4 Months M32.9 - Systemic lupus erythematosus, unspecified US thyroid Today E04.1 - Nontoxic single thyroid nodule Complement C4 4 Months M32.9 - Systemic lupus erythematosus, unspecified Complete Blood Count Auto Diff 4 Months M32.9 - Systemic lupus erythematosus, unspecified Erythrocyte Sedimentation Rate 4 Months M32.9 - Systemic lupus erythematosus, unspecified Thiopurine Methyltransferase 4 Months M32.9 - Systemic lupus erythematosus, unspecified XR hip RT min 2V Today M25.551 - Pain in right hip, M25.552 - Pain in left hip XR hip LT min 2V Today M25.551 - Pain in right hip, M25.552 - Pain in left hip Coding Level of Care Code Est Pt Level 4 (34271) Complex EM visit Add On G2211 Diagnoses Systemic lupus erythematosus, unspecified SLE type, unspecified organ involvement status M32. Systemic lupus erythematosus type: unspecified Systemic lupus erythematosus organ involvement: unspecified Thyroid Nodule E04.1 Long-term use of hydroxychloroquine Z79.899
[2024-10-26 10:09] VITALS: BP 115/64; PULSE 86; O2SAT 99; BMI 29.9
--- OUTSIDE RECORDS SUMMARY | 2024-10-26 11:26 | XMS_ITS | Clinical Summary ---
Author Organization [facility] Address [address] [place] [address] Care Team Providers Care Senior Media Planner Name Role Phone Christian Kang MD Primary Care Provider [phone] Allergies No known active allergies Medications Medication [...] age to complete this topic Care Teams Senior Media Planner Relationship Specialty Start Date End Date Christian Kang MD PCP - General Internal Medicine 11/20/21
--- OUTSIDE RECORDS SUMMARY | 2024-10-26 11:26 | XMS_ITS | Clinical Summary ---
Author Organization [facility] Address [address] [place] [address] Care Team Providers Care Benefits Specialist Name Role Phone Miguel Diallo MD Primary Care Provider [phone] Source Comments PLEASE NOTE, if this patient [...] of Treatment Not on file Care Teams Benefits Specialist Relationship Specialty Start Date End Date Miguel Diallo MD [address] [place] [address] PCP - General Internal Medicine 09/21/13
--- OUTSIDE RECORDS SUMMARY | 2024-10-26 11:26 | XMS_ITS | Clinical Summary ---
Author Organization [facility] [address] [facility] Address [address] [facility] [place] [address] Phone Care Team Providers Care Transitional Care Manager Name Role Phone Christian Kang MD Primary Care Provider [phone] Allergies No known active allergies Medications aspirin [...] anemia 05/31/2024 Overview (05/31/2024): Presumed due to MATTRESS STRIPPER loss Class 1 obesity 05/31/2024 Uterine leiomyoma [...] and agreed. SLE (systemic lupus erythema tosus) ([facility] V24, [facility] V28) 09/24/2019 Overview (05/31/2024): 2016 - initially saw Dr. Stevenson at [place] Alopecia, arthralgia, mild leukopenia Plaquenil since 2016. Eye exam December,, December 20202019: anti DNA, C3, C4 normal. 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 Milian on doxycycline and minoxidil cream Alopecia of scalp 11/19/2016 Pseudotumor cerebri 09/02/2016 Overview (05/31/2024): ~ 2017 did see neurology Major depression 10/06/2014 Encounters Date Type Department Care Team Description 09/15/2024 6:22 PM EDT - 09/15/2024 11:59 PM EDT Hospital Encounter Radiology Department - [address] [phone] Uterine leiomyoma, unspecified location Discharge Disposition: Home or Self Care 09/06/2024 1:30 PM EDT Office Visit Obstetrics and Gynecology - [address] [phone] Fariba Callaway CNM Encounter for annual routine [...] COMMENT: myomectomy OTHER SURGICAL HISTORY 03/2012 PROCEDURE: UT MYOMECTOMY 1-4 MYOMAS W/250 GM/< ABDOMINAL APPR OTHER SURGICAL HISTORY PROCEDURE: URETHRAL INSERT OTHER SURGICAL HISTORY 08/22/2017 PROCEDURE: UT HYSTEROSCOPY REMOVAL LEIOMYOMATA Medical History Medical History [...] Name Priority Date/Time Associated Diagnosis Comments EMPOWER MATTRESS STRIPPER GUIDELINES 2, 17 Routine 09/22/2024 3:28 PM [...] Relevant to Health Maintenance Results * EMPOWER MATTRESS STRIPPER GUIDELINES (2+17) (09/22/2024 3:28 PM EDT) Blood Venous blood specimen / Unknown us Fariba Callaway [facility] MOLECULAR DIAGNOSTICS ORDER JAZMÍN Final Result [...] Signed Date: 09/16/2024 09:59 ET Workstation ID: [id number] Transcribed By: Self Edit Transcribed Date: 09/16/2024 [...] Signed Date: 09/16/2024 09:59 ET Workstation ID: [id number] Transcribed By: Self Edit Transcribed Date: 09/16/2024 09:26 ET us Fariba Callaway CNM IM US PROCEDURES Final Result * Venipuncture charge (09/07/2024 12:41 PM EDT) [facility] Extra Tube Hold for add-ons. 09/07/2024 2:01 PM EDT [facility] YUAN) Comment:Auto resulted. Blood Venous blood specimen / Unknown Venipuncture / Unknown 09/07/2024 12:41 PM EDT 09/07/2024 12:41 PM EDT us Fariba YBARRA LAB BLOOD ORDERABLES Final Resu lt [facility] (AMY) PR, US * (ABNORMAL) Complete blood count (09/07/2024 12:41 PM EDT) [facility] WBC 3.0(L) 4.8 - 10.8 K/mcL LAB HEMETOLOGY METHOD 09/07/2024 2:17 PM EDT [facility] RBC 4.00 3.80 - 4.80 M/mcL LAB HEMETOLOGY METHOD 09/07/2024 2:17 PM EDT [facility] Hemoglobin 8.7(L) 11.5 - 16.0 g/dL LAB HEMETOLOGY METHOD 09/07/2024 2:17 PM T [facility] Hematocrit 29.0(L) 35.0 - 47.0 % LAB HEMETOLOGY METHOD 09/07/2024 2:17 PM EDT [facility] MCV 72.3(L) 79.0 - 98.0 FL LAB HEMETOLOGY METHOD 09/07/2024 2:17 PM EDT [facility] MCH 21.7(L) 27.0 - 32.0 pcg LAB HEMETOLOGY METHOD 09/07/2024 2:17 PM EDT [facility] MCHC 30.0(L) 32.0 - 37.0 g/dL LAB HEMETOLOGY METHOD 09/07/2024 2:17 PM EDT [facility] RDW 15.6(H) 11.0 - 15.0 % LAB HEMETOLOGY METHOD 09/07/2024 2:17 PM EDT [facility] Platelets 318 130 - 400 K/mcL LAB HEMETOLOGY METHOD 09/07/2024 2:17 PM EDT [facility] MPV 11.0 7.0 - 11.0 FL LAB HEMETOLOGY METHOD 09/07/2024 2:17 PM EDT [facility] NRBC 0.0 <1.0 % LAB HEMETOLOGY METHOD 09/07/2024 2:17 PM EDT [facility] NRBC Absolute 0.00 <0.10 K/mcL LAB HEMETOLOGY METHOD 09/07/2024 2:17 PM EDT [facility] Blood Venous blood specimen / Unknown Venipuncture / Unknown 09/07/2024 12:41 PM EDT 09/07/2024 12:41 PM EDT us Fariba Callaway [facility] BLOOD ORDERABLES Final Resu lt [facility] [address] [place] [address], * MG Mammo Digital Screening w Tawanda [...] Signed Date: 04/26/2024 16:37 ET Workstation ID: [id number] Transcribed By: Self Edit Transcribed Date: 04/26/2024 [...] Signed Date: 04/26/2024 16:37 ET Workstation ID: [id number] Transcribed By: Self Edit Transcribed Date: 04/26/2024 16:36 ET us Self Referral [facility] IMG BI PROCEDURES Final Resu lt * Cervical Cancer Screening: HPV (02/07/2021) Pathologist [facility] Cervical Cancer Screening: HPV negative abstracted Historical Provider HEALTH MAINTENANCE Final Result from Last 3 Months or Most Recently Relevant to Health Maintenance Insurance [employer] Care Teams Transitional Care Manager Relationship Specialty Start Date End Date Christian Kang MD [address] [place] [address] [place] [address] PCP - General Internal Medicine 11/20/21
== END 2024-10-26 10:39 | disposition home or self-care (01) ==
LOC: HO.RHE 10:02
PROVIDERS: Visit Provider Student in an Organized Health Care Education/Training Program
DX: M32.9 Systemic lupus erythematosus, unspecified (principal); E04.1 Nontoxic single thyroid nodule; Z79.899 Other long term (current) drug therapy
CPT/HCPCS: 99214

== ENCOUNTER → 2024-10-26 10:01 | Outpatient (BNVA) | payer OTHER, SELFPAY | PROVIDERS: Visit Provider Student in an Organized Health Care Education/Training Program ==

== ENCOUNTER 2024-11-18 15:35 | Outpatient (REF) | payer OTHER, SELFPAY ==
--- NOTE | ~2024-11-18 | US_ITS ---
EXAMINATION: US THYROID HISTORY: E04.1 - Nontoxic single thyroid nodule TECHNIQUE: Real-time grayscale ultrasound imaging was performed and images were reviewed. COMPARISON: Comparison is made with the prior examination dated 12/13/2016. FINDINGS: SIZE: The right thyroid lobe measures 5.1 x 1.6 x 1.7 cm. The left thyroid lobe measures 5.8 x 1.9 x 2.4 cm. The isthmus measures 2 mm. FLOW: Flow to the gland is normal. ECHOGENICITY: The echotexture of the gland is homogeneous. NODULES: There is a 2 mm colloid cyst at the lower pole of the right thyroid lobe. Additional left-sided nodules are noted as described below: Nodule #: 1 Location: Left lower pole measuring 2.7 x 1.4 x 1.3 cm (previously 1.5 x 0.7 x 0.8 cm). Shape: Taller than wide (3 points) Margins: Smooth (0 points) Echotexture: Hypoechoic (2 points) Composition: Solid (2 points) Calcifications: None (0 points) Total points: 7 TIRADS: TR5: Highly suspicious. Nodule #: 2 Location: Midportion of the left thyroid lobe measuring 1.0 x 0.7 x 0.8 cm (previously 0.5 x 0.4 x 0.6 cm). Shape: Wider than tall (0 points) Margins: Smooth (0 points) Echotexture: Hypoechoic (2 points) Composition: Mixed (1 point) Calcifications: Punctate calcifications (3 points) Total points: 6 TIRADS: TR4: Moderately suspicious. US/US thyroid IMPRESSION: Interval growth of both nodules in the left thyroid lobe as described above. Nodule #1 is highly suspicious, and according to TI-RADS guidelines below, ultrasound-guided fine-needle aspiration is recommended. ACR TI-RADS Guidelines TR1 (0 points): Benign, No follow-up or biopsy required TR2 (2 points): Not Suspicious, No biopsy or follow up indicated TR3 (3 points): Mildly Suspicious, FNA if >= 2.5 cm, Follow if >= 1.5 cm TR4 (4-6 points): Moderately Suspicious, FNA if >= 1.5 cm, Follow if >= 1.0 cm TR5 (>=7 points): Highly Suspicious, FNA if >= 1.0 cm, Follow if >= 0.5 cm Electronically signed by: Rashaad Rodríguez MD 11/19/2024 07:35 AM EDT
--- OUTSIDE RECORDS SUMMARY | 2024-11-18 15:38 | XMS_ITS | Data Portability ---
Author Organization [facility] [address] Address [address] [place] [address] Assessment No assessment recorded. Plan of Treatment Reminders Order Date Submit Date Provider Last Modified By Organization Details Last Modified Time Details Appointments None recorded. Lab None recorded. Referral neurologist referral 2022 023 [email or web address] 26 [facility], [address] [facility] [address], [place], [address], 07:56:57 Procedures None recorded. Surgeries None recorded. Imaging None recorded. Medication Orders ketorolac 60 mg/2 mL intramuscul ar solution 2022 023 [email or web address] 247 Not available 18:20:58 acetaminoph en 325 mg tablet 2022 023 [email or web address] 247 Not available 18:20:58 Patient TargetsNo targets recorded. Patient Instructions Encounter Date Encounter Id Patient Instructions Last Modified By Organization Details Last Modified Time 10/14/2022 [id number] If the pain does not respond to the treatment plan or gets worse go to directly to the ER for further evaluation and management. [email or web address] Not available 10/14/2022 18:29:21 We attempted to connect with her neurologist with no success. I explained that while she is waiting for her PCP and Neurology appointment, if her pain increases, or she develops additional symptoms she needed to go directly to the ER for additional evaluation and management and connection with a specialist. [email or web address] Not available 11/07/2022 13:40:06 Reason for Referral Neurologist Referral for Hea dache Referring Physician: [facility], Encounter Date: 10/14/2022 Problems Name Problem SNOMED Code Status Onset Date Resolution Date Notes Provider Name and Address Organization Details Recorded Time Lupus erythematosus 719316819 Active 2022 TORIN NICHELLE Elaine [facility] 3 16:37:03 Uterine leiomyoma 16211031 Active 2022 NICHELLE Sol [facility] 3 [...] Updated DateTime 3 170.18 cm 27.9 kg/m2 34102.4 4 g 17 /min 100 % 100 % 84 /min 98.3 [degF] 122 mm[Hg] 82 mm[Hg] TORIN STEWARD - [facility] 3 16:39:08 Social History Question Answer Notes LastModified by [employer] Details LastModified Time Tobacco Smoking Status Never Smoker TORIN REILLY flores PA Loren [facility] 10/14/2022 16:37:59 Have You Recently Traveled Abroad? No [email or web address] Information not available 10/14/2022 Sex: Unknown Functional Status Question Answer Note LastModified by [employer] Details LastModified Time Do you use any illicit or recreational drugs? No [email or web address] Information not available 10/14/2022 Do you or have you ever used any other forms of tobacco or nicotine? No [email or web address] Information not available 10/14/2022 What is your level of alcohol consumption? Occasional [email or web address] Information not available 10/14/2022 Mental Status None recorded. Family History Relationship Description Onset Age of this Age Resolved Age Notes LastModified by Organization Details LastModified Time Father No current problems or disability [email or web address] Not available 10/14 16:37:41 Mother No current problems or disability [email or web address] Not available 10/14 16:37:41 Medical History No medical history recorded. Gynecological HistoryNo gynecological history recorded. Obstetrics History GPAL:G 0 P 0 0 0 0 Past Encounters Encounter ID Performer Location Encounter Start Date Encounter Closed Date Diagnosis/Indication Diagnosis SNOMED-CT Code Diagnosis ICD10 Code Diagnosis Note [id number] [address] [place] [address] 03/03/2015 19:37:45 03/03/2015 20:22:06 [id number] [address] [place] [address] 11/28/2020 17:26:33 11/28/2020 18:31:22 [id number] [address] [place] [address] 01/25/2021 17:28:28 01/25/2021 19:20:42 [id number] [address] [place] [address] 05/12/2021 13:01:07 05/12/2021 15:38:16 [id number] KARYN BUENO MD [address] [place] [address] 10/14/2022 16:32:00 10/14/2022 18:32:39 Migraine 74022805 G43.909 ibuprofen 600 mg every 8 hrs. Headache 21063660 R51.9 Health Concerns Section Related Observation LastModified by Organization Detai ls LastModified Time None Recorded Concern Status LastModified by Organization Details LastModified Time None Recorded Advance Directives Directive None Recorded Payers Insurance Date Sequence Insurance Name Policy Number Policy Arroyo Covered Member ID Arroyo Member ID Guarantor Name 11/07/2022 1 [id number] Yuli Quinn [id number] Yuli Quinn Notes Date Note Type Note [...] chemicals or medications. KARYN BUENO MD [address] [place], [address], [place] - [facility] 11/07/2022 13:40:38 OBGyn Episode No OBEpisode recorded.
== END 2024-11-18 15:36 | disposition home or self-care (01) ==
LOC: HO.HMGCX 15:35
PROVIDERS: Visit Provider Student in an Organized Health Care Education/Training Program
DX: E04.1 Nontoxic single thyroid nodule (principal)
CPT/HCPCS: 76536

== ENCOUNTER → 2024-11-18 15:38 | Outpatient (BNV) | payer OTHER, SELFPAY | PROVIDERS: Visit Provider Radiology Diagnostic Radiology | DX: E04.1 Nontoxic single thyroid nodule (principal) | CPT/HCPCS: 76536 ==

== ENCOUNTER 2025-01-12 10:35 | Outpatient (REF) | payer OTHER, SELFPAY ==
[2025-01-12 10:50] LABS: MANUAL DIFF FLAG NO
[2025-01-12 11:35] LABS: Hematocrit 34.8 % (37.0-47.0); Hemoglobin 10.6 g/dl (12.0-16.0); Imm Gran Abs Auto 0.01 X10*3/uL (0.00-0.03); Imm Gran Pct Auto 0.3 % (0.0-0.4); Lymphocytes Absolute Auto 0.9 X10*3/uL (1.2-4.9); Mean Corpuscular HGB Conc 30.5 g/dl (31.0-35.0); Mean Corpuscular Hemoglobin 23.3 pg (27.0-33.0); Mean Corpuscular Volume 76.5 fL (80.0-98.0); NRBC Abs Auto 0.000 X10*3/uL (0.0-0.012); NRBC Pct Auto 0.0 /100WBC (0.0-0.2); Platelet Count 194 X10*3/uL (160-400); Red Blood Count 4.55 X10*6/uL (4.20-5.50); White Blood Count 3.4 X10*3/uL (4.8-10.8)
--- OUTSIDE RECORDS SUMMARY | 2025-01-12 11:38 | XMS_ITS | Clinical Summary ---
Author Organization [facility] Address [address] [place] [address] Care Team Providers Care Supervisor Salvage Name Role Phone Miguel Diallo MD Primary Care Provider [phone] Source Comments PLEASE NOTE, if this patient [...] 60 09/21/2013 2:58 PM EDT Temperature 37.1 C (98.7 F) 09/21/2013 2:58 PM EDT Respiratory Rate 12 09/21/2013 2:58 PM EDT Oxygen Saturation - - Inhaled Oxygen Concentration - - Weight 80.7 kg (178 lb) 09/21/2013 2:58 PM EDT Height 170.8 cm (5' 7.25 ) 09/21/2013 2:58 PM ED T Body Mass Index 27.67 09/21/2013 2:58 PM EDT Plan of Treatment Not on file Care Teams Supervisor Salvage Relationship Specialty Start Date End Date Miguel Diallo MD [facility] [place] [address] PCP - General Internal Medicine 09/21/13
--- OUTSIDE RECORDS SUMMARY | 2025-01-12 11:38 | XMS_ITS ---
Author Name [facility] Organization Unknown Care Team Organization Name Specialty Phone Email Start Date End Alex ritchie [facility] Birdie Santos Primary Care 04/30/2022 02/09/20 24
--- OUTSIDE RECORDS SUMMARY | 2025-01-12 11:38 | XMS_ITS | Clinical Summary ---
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 SLE (systemic lupus erythema tosus) ([facility], [facility] V28) 09/24/2019 Overview (05/31/2024): 2016 - initially saw Dr. Stevenson at [place] Alopecia, arthralgia, mild leukopenia Plaquenil since 2016. Eye exam December,, December 20202019: anti DNA, C3, C4 normal. 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 Milian on doxycycline and minoxidil cream Alopecia of scalp 11/19/2016 Pseudotumor cerebri 09/02/2016 Overview (05/31/2024): ~ 2017 did see neurology Major depression 10/06/2014 Encounters Date Type Department Care Team Description 10/29/2024 Telephone Obstetrics and Gynecology - [address] [address] Lady Castillo RN from Last 3 Months Immunizations Name Administration Dates Next Due Pfizer SARS-CoV-2 COVID-19, mRNA, LNP-S, preservative free 07/14/2021,10/25/2020 Surgical History Surgery Date Site/Laterality Comments OTHER SURGICAL HISTORY PROCEDURE: HISTORICAL UNSPECIFIED SURGERY; COMMENT: myomectomy OTHER SURGICAL HISTORY 03/2012 PROCEDURE: IN MYOMECTOMY 1-4 MYOMAS W/250 GM/< ABDOMINAL APPR OTHER SURGICAL HISTORY PROCEDURE: URETHRAL INSERT OTHER SURGICAL HISTORY 08/22/2017 PROCEDURE: IN HYSTEROSCOPY REMOVAL LEIOMYOMATA Medical History Medical History [...] of 3 - 19+ 3-dose series) 2000 HIV Screening 06/01/2022 Hepatitis C Screening 06/01/2022 Social Influencers of Health Screening 06/01/2022 DTaP,Tdap,and Td Vaccines (2 - Td or Tdap) 09/22/2023 09/21/2013 COVID-19 Vaccine (4 - 2023-2 5 season) 2024 07/14/2021, 10/25/2020, 10/04/2020 Depression Screening 06/23/2024 Influenza Vaccine (#1) 2025 Cervical Cancer Screening: HPV 02/07/2026 02/07/2021 [...] 5 Years) and At-Risk Patients (6 to 49 Years) Aged Out No longer eligible b ased on patient's age to complete this topic RSV Immunization Patients Under 20 months Aged Out No longer eligible b ased on patient's age to complete this topic Varicella Vaccines Aged Out No longer eligible based on patient's age to complete this topic Procedures Procedure Name Priority Date/Time Associated Diagnosis Comments MG MAMMO DIGITAL SCREENING W TAWANDA BILAT Routine 04/24/2024 3:30 PM EDT Encounter for screening mammogram for breast cancer HM HPV Routine 02/07/2021 from Last 3 Months or Most Recently Relevant to Health Maintenance Results * MG Mammo Digital Screening w Tawanda [...] Signed Date: 04/26/2024 16:37 ET Workstation ID: [id number] Transcribed By: Self Edit Transcribed Date: 04/26/2024 [...] Signed Date: 04/26/2024 16:37 ET Workstation ID: [id number] Transcribed By: Self Edit Transcribed Date: 04/26/2024 16:36 ET us Self Referral Mhscm IMG BI PROCEDURES Final Resu lt * Cervical Cancer Screening: HPV (02/07/2021) Pathologist [facility] Cervical Cancer Screening: HPV negative abstracted Historical Provider HEALTH MAINTENANCE Final Result from Last 3 Months or Most Recently Relevant to Health Maintenance Insurance [employer] Care Teams Environmental Remediation Consultant Relationship Specialty Start Date End Date Christian Kang MD [address] [place] [address] PCP - General Internal Medicine 11/20/21
--- OUTSIDE RECORDS SUMMARY | 2025-01-12 11:38 | XMS_ITS | Clinical Summary ---
Author Organization [facility] Address [address] [place] [address] Care Team Providers Care Commercial Relationship Manager Name Role Phone Christian Kang MD Primary Care Provider [phone] Allergies No known active allergies Medications Medication [...] 75 11/20/2021 2:19 PM EDT Temperature 37 C (98.6 F) 11/20/2021 2:19 PM EDT Respiratory Rate - [...] or Tdap) 09/22/2023 014 Influenza Vaccine (#1) 2025 Pneumococcal Vaccine Aged Out No long er eligible based on patient's age to complete this topic RSV Ped < 20 months Aged Out No longe r eligible based on patient's age to complete this topic Care Teams Commercial Relationship Manager Relationship Specialty Start Date End Date Christian Kang MD PCP - General Internal Medicine 11/20/21
--- OUTSIDE RECORDS SUMMARY | 2025-01-12 11:38 | XMS_ITS | Data Portability ---
Author Organization [facility], [address] Address [address] [place] [address] Assessment No assessment recorded. Plan of Treatment Reminders Order Date Submit Date Provider Last Modified By Organization Details Last Modified Time Details Appointments None recorded. Lab None recorded. Referral neurologist referral 2022 023 [email or web address] 26 [facility], [facility] [address], [place], [address], 07:56:57 Procedures None recorded. Surgeries None recorded. Imaging None recorded. Medication Orders ketorolac 60 mg/2 mL intramuscul ar solution 2022 023 [email or web address] 247 Not available 18:20:58 acetaminoph en 325 mg tablet 2022 023 [email or web address] 247 Not available 18:20:58 Patient TargetsNo targets recorded. Patient Instructions Encounter Date Encounter Id Patient Instructions Last Modified By Organization Details Last Modified Time 10/14/2022 [id number] If the pain does not respond to the treatment plan or gets worse go to directly to the ER for further evaluation and management. [email or web address] Not available 10/14/2022 18:29:21 We attempted to connect with her neurologist with no success. I explained that while she is waiting for her PCP and Neurology appointment, if her pain increases, or she develops additional symptoms she needed to go directly to the ER for additional evaluation and management and connection with a specialist. [email or web address] Not available 11/07/2022 13:40:06 Reason for Referral Neurologist Referral for Candelaria armijo Referring Physician: [facility], Encounter Date: 10/14/2022 Problems Name Problem SNOMED Code Status Onset Date Resolution Date Notes Provider Name and Address Organization Details Recorded Time Lupus erythematosus 850278966 Active 2022 TORIN flores PA - [facility] 3 16:37:03 Uterine leiomyoma 67517883 Active 2022 NICHELLE Sol - [facility] 3 16:37:17 Problem Notes None recorded. Procedures Surgical History Date Name Laterality Status Provider Name and Address Organization Details Recorded Time uterine myomectomy completed TORIN Pimentel [facility] 10/14/2022 16:38:14 Imaging Results [...] Pulse oximetry Heart rate Body temperature Systolic And Diastolic Provider Name and Address Organization Details Last Updated DateTime 3 170.18 cm 27.9 kg/m2 88652.4 4 g 9 17 /min 100 % 100 % 84 /min 98.3 [degF] 122/82 mm[Hg] TORIN GROVER PA - [facility] 3 16:39:08 Social History Question Answer Notes LastModified by [employer] Details LastModified Time Tobacco Smoking Status Never Smoker TORIN flores PA - [facility] 10/14/2022 16:37:59 Have You Recently Traveled Abroad? No Information not available 10/14/2022 Sex: Unknown Functional Status Question Answer Note LastModified by Organizat ion Details LastModified Time Do you use any illicit or recreational drugs? No [email or web address] Information not available 10/14/2022 Do you or have you ever used any other forms of tobacco or nicotine? No [email or web address] Information not available 10/14/2022 What is your level of alcohol consumption? Occasional [email or web address] Information not available 10/14/2022 Mental Status None recorded. Family History Relationship Description Onset Age of this Age Resolved Age Notes LastModified by Organization Details LastModified Time Father No current problems or disability [email or web address] Not available 10/14 16:37:41 Mother No current problems or disability [email or web address] Not available 10/14 16:37:41 Medical History No medical history recorded. Gynecological HistoryNo gynecological history recorded. Obstetrics History GPAL:G 0 P 0 0 0 0 Past Encounters Encounter ID Performer Location Encounter Start Date Encounter Closed Date Diagnosis/Indication Diagnosis SNOMED-CT Code Diagnosis ICD10 Code Diagnosis Note [id number] [address] [place] [address] 03/03/2015 19:37:45 03/03/2015 20:22:06 [id number] [address] [place] [address] 11/28/2020 17:26:33 11/28/2020 18:31:22 [id number] [address] [place] [address] 01/25/2021 17:28:28 01/25/2021 19:20:42 [id number] [address] [place] [address] 05/12/2021 13:01:07 05/12/2021 15:38:16 [id number] KARYN GIPSON MD [address] [place] [address] 10/14/2022 16:32:00 10/14/2022 18:32:39 Migraine 31579521 G43.909 ibuprofen 600 mg every 8 hrs. Headache 32369454 R51.9 Health Concerns Section Related Observation LastModified by Organization Detai ls LastModified Time None Recorded Concern Status LastModified by Organization Details LastModified Time None Recorded Advance Directives Directive None Recorded Payers Insurance Date Sequence Insurance Name Policy Number Policy Arroyo Covered Member ID Arroyo Member ID Guarantor Name 11/07/2022 1 [facility] [id number] Yuli Quinn [id number] Yuli Quinn Notes Date Note Type [...] new chemicals or medications. KARYN GIPSON MD [address] [place], [place] [address], [address], [place] - [facility] 11/07/2022 13:40:38 OBGyn Episode No OBEpisode recorded.
[2025-01-12 12:14] LABS: Alanine Aminotransferase 25 U/L (0-31); Albumin Level 3.9 g/dL (3.5-5.0); Alkaline Phosphatase 66 U/L (39-117); Anion Gap 9 (12-20); Aspartate Amino Transferase 27 U/L (5-31); Blood Urea Nitrogen 11 mg/dL (9-16); Calcium 8.9 mg/dL (8.4-10.2); Carbon Dioxide 25 mmol/L (22-29); Chloride 108 mmol/L (96-108); Estimated Glomerular Filt Rate > 60; Potassium 4.1 mmol/L (3.3-5.1); Sodium 138 mmol/L (135-145); Total Protein 7.9 g/dL (6.5-8.0)
[2025-01-12 12:45] LABS: Appearance Urine Clear; Glucose Urine UA Negative (Negative); PH 6.5 (5.0-9.0); Specific Gravity - Urine 1.020 (1.005-1.025)
[2025-01-12 14:22] LABS: Protein/Creatinine Ratio, Ur 0.07 (<0.2); Total Protein Urine Random 8 mg/dL (<12)
== END 2025-01-12 10:36 | disposition home or self-care (01) ==
LOC: HO.LAB 10:35
PROVIDERS: Visit Provider Student in an Organized Health Care Education/Training Program
DX: M32.9 Systemic lupus erythematosus, unspecified (principal)
CPT/HCPCS: 36415; 80053; 81001; 82570; 84156; 84433; 85025; 85652; 86140; 86160; 86225

== ENCOUNTER 2025-03-29 13:56 | Outpatient (AMB) | payer OTHER, SELFPAY ==
--- NOTE | 2025-03-29 14:04 | A.OFFVIS_ITS ---
Vital Signs 03/29/25 14:09 Height 5 ft 8 in Weight 202 lb 13.204 oz BMI 30.8 BP 115/64 Blood Pressure Location Lt brachial Position Sitting Pulse 87 Pulse Source Pulse Oximeter Pulse Oximetry (%) 97 Oxygen Delivery Method Room Air Intake Visit Reasons: f/u SLE Intake Note: Patient presents for SLE follow up. Allergies No Known Allergies Allergy (Verified 03/29/25 14:08) Medication List - Last Reconciled 03/29/25 by Isabella Hardy MD aspirin 81 mg PO DAILY cholecalciferol (vitamin D3) 25 mcg PO DAILY ferrous sulfate 325 mg PO DAILY fluticasone propionate 50 mcg/actuation 1 spray intranasal BID 7 days hydroxychloroquine 200 mg PO BID multivitamin 1 tab PO DAILY vitamin B complex (B Complex-Vitamin B12 tablet) 1 tab PO DAILY HPI Comments Details: Patient is a 44-year-old female with iron-deficiency anemia secondary to uterine fibroids, systemic lupus erythematosus and history of CVA ?SLE related here today for follow up Interval History: Patient last seen 10/26/2024 with me - On plaquenil 400mg daily - She reached out to the office 10/05/2024 complaining of chest pain and concern for possible lung infection. She was seen at [facility] in [place]. They did a chest x-ray which was concerning for possible lung infection versus given 7 day course of doxycycline. Because of her history of SLE an urgent CT was ordered. A CT scan did not show any evidence of pleural effusion, pericardial effusion or infiltrate but there were several reactive lymph nodes noted. She was given a course of prednisone - Today patient is doing well - Improved on the prednisone - No rash, joint pain or alopecia - Gets intermittent hip pain rylee when she goes on vacation - Exam unremarkable - No changes made to medication Today - On plaquenil 400mg daily - Doing well overall Rheumatologic History: dx 2017 (Alopecia, arthralgia, mild leukopenia, ?CVA related to SLE +++Cho +++SUPERINTENDENT CEMETERY +++SSa) Plaquenil since 2017 Right frontal lobe encephalomalacia seen on MRI 11/2022 probable old CVA; ? residual memory deficits. Workup with CT angiogram of the head and neck was normal. 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 Per patient subsequent JOSE D was negative. CSF showed no leukocytosis, normal protein, slightly elevated IgG., studies for lupus anticoagulant and anti cardiolipin antibodies were negative. Initial history with Dr. Treviño 09/2023: This is a 42-year-old female who presents for evaluation of SLE. She states that she has been doing fairly well. Except for symptoms of a head cold that started a few days ago. She is currently on her period. She states that she was recently evaluated by her patented hogshead assembler and was told that she has protein in the urine. She states that she had extensive testing by the patented hogshead assembler and no hypercoagulable order was found. Last year when she was found to have a stroke, 2D echo showed possible interatrial septum aneurysm however according to patient the transesophageal echo was unremarkable. She also had CT arterial and venogram of her head which were unremarkable. Patient stated that when initially diagnosed with lupus around 2017 she was started on hydroxychloroquine Twice daily. Last year it was reduced to 1 tab daily. Afterwards she was having a headache and workup eventually showed an old stroke. It does not look like patient had any neurological deficits. Hydroxychloroquine was increased back to 2 tabs daily. She stated that since she started hydroxychloroquine in 2018 the hair loss and skin rashes have improved. She states that she might be going back for another fibroid surgery as she continues to have significant menstrual bleeding. Has no other complaints today Current Rheumatology Medication(s): Plaquenil 400mg daily PFSH Medical History Iron deficiency anemia Surgical History H/O myomectomy Family History Father Diabetes Mother Breast cancer Maternal Grandmother Breast cancer Social History Household Members Other:: lives alone Housing: Condominium Are you a primary child day care provider to a significant other at home: No Do you presently have visiting nurse or other home services: No 75 years or older and lives alone: No Alcohol intake: current Alcohol intake frequency: holidays/special occasions only Alcohol type: wine Patient Tobacco Use Status: Never used Tobacco e-Cigarette/Vaping Use: Never Used Second Hand Smoke Exposure: No Current occupational status: employed Review of Systems Const Details: Review of Systems Constitutional: Denies fever, chills, weight loss ENT: Denies vision changes, eye pain or eye redness, dental caries, dry mouth GI: Denies nausea, vomiting, diarrhea, abdominal pain, change in BM Pulm: Denies SOB, CHRISTIANSON, hemoptysis, wheezing Cards: Denies chest pain, palpitations Skin: Denies Raynaud's, rash, nail changes, photosensitivity, [employer] PRECINCT: Denies headaches, weakness, paresthesias, recurrent falls MSK: as per HPI All other systems reviewed and are unremarkable except noted above Physical Exam Exam Exam: Vital signs reviewed Physical Examination CONSTITUITIONAL Patient alert and cooperative. Well appearing and in no apparent painful distress MSK Hands * Right Hand: Able to make a fist. No swelling or tenderness to palpation of the MCPs, PIPs or DIPs. No deformities noted. * Left Hand: Able to make a fist. No swelling or tenderness to palpation of the MCPs, PIPs or DIPs. No deformities noted. Wrists * Right Wrist: Full ROM to flexion and extension. No swelling or TTP * Left Wrist: Full ROM to flexion and extension. No swelling or TTP Elbows * Right Elbow: Full ROM. No swelling or TTP. No TTP of the medial epicondyle. No TTP of the lateral epicondyle * Left Elbow: Full ROM. No swelling or TTP. No TTP of the medial epicondyle. No TTP of the lateral epicondyle Shoulders * Right shoulder: Full ROM. No swelling noted. No TTP of the AC joint. No TTP of the subacromial bursa. No TTP of the posterior shoulder * Left shoulder: Full ROM. No swelling noted. No TTP of the AC joint. No TTP of the subacromial bursa. No TTP of the posterior shoulder Knees * Right knee: Full ROM. No swelling noted. No TTP of the knee joint line. No TTP of pes anserine bursa * Left knee: Full ROM. No swelling noted. No TTP of the knee joint line. No TTP of pes anserine bursa. Ankles * Right ankle: Good ankle dorsiflexion and plantar flexion. No swelling. No TTP of the ankle joint * Left ankle: Good ankle dorsiflexion and plantar flexion. No swelling. No TTP of the ankle joint Feet * Right foot: Negative squeeze test * Left foot: Negative squeeze test Tender points? * No tenderness to palpation of the bilateral trapezius, supraspinatus, anterior costochondral junctions, bilateral suboccipital muscle insertions SKIN No rashes Vital Signs: Last Vital Signs Pulse 87 03/29/25 14:09 BP 115/64 03/29/25 14:09 Pulse Ox 97 03/29/25 14:09 Oxygen Delivery Method Room Air 03/29/25 14:09 BMI result Body Mass Index 30.8 Results Reviewed Results Reviewed: Laboratory Tests 10/25/24 01/12/25 12:32 10:48 WBC 3.4 L RBC 4.55 Hgb 10.6 L Hct 34.8 L Plt Count 194 D ESR 23 H 22 H Sodium 138 Potassium 4.1 Chloride 108 Carbon Dioxide 25 BUN 11 Creatinine 0.66 AST 27 ALT 25 C-Reactive Protein 0.41 0.58 H Laboratory Tests 01/12/25 10:41 Urine Color Yellow Urine Protein Trace Urine Blood Negative Urine RBC 0-2 Protein/Creatinin Ratio 0.07 Laboratory Tests 10/05/24 01/12/25 16:03 10:48 Double Strand DNA Ab 1 1 Complement C3 134 121 Complement C4 15 13 L Assessment & Plan Assessment & Plan (1) Systemic lupus: Comment: dx 2016 (Alopecia, arthralgia, mild leukopenia, ?CVA related to SLE +++Cho +++SUPERINTENDENT CEMETERY +++SSa) Plaquenil since 2017 Code(s): M32.9 - Systemic lupus erythematosus, unspecified Category: Medical Qualifiers: Systemic lupus erythematosus type: unspecified Systemic lupus erythematosus organ involvement: unspecified Qualified Code(s): M32.9 - Systemic lupus erythematosus, unspecified Plan: #SLE Patient is a 43-year-old female with SLE here today for follow up. Doing well overall, no significant complaints Complements lower than past check but no evidence of a flar . Those labs are from 12/2024. No change to medication at this time Plan - Plaquenil 400mg daily. Weight based - RTC 4 months - Labs before visit: CBC, CMP, ESR, CRP, C3, C4, dsDNA, UA, UPC (2) Thyroid Nodule: Code(s): E04.1 - Nontoxic single thyroid nodule Plan: #Thyroid nodule Following with ENT (3) Long-term use of hydroxychloroquine: Comment: Eye exam 02/2024 OK Code(s): Z79.899 - Other parts counterman (current) drug therapy Category: Medical Plan: #Long-term Use of Hydroxychloroquine Discussed with patient the risks and benefits of hydroxychloroquine in managing the rheumatic condition Benefits include: - Reduced pain, reduce mortality, maintenance of remission and reduction of flares Risks include: - GI upset, skin hyperpigmentation, retinal toxicity (especially after more than 5 years of use), myopathy Advised yearly ophthalmology visits Last ophthalmology visit: 02/2024 Plan I spent 30 minutes reviewing the record and labs, taking a history, examining the patient, discussing the treatment plan, ordering diagnostic work up and documenting in the medical record Orders: Orders Comprehensive Met. Panel 4 Months M32.9 - Systemic lupus erythematosus, unspecified Anti DNA DS Antibody 4 Months M32.9 - Systemic lupus erythematosus, unspecified Ferritin 4 Months D50.9 - Iron deficiency anemia, unspecified IRON PROFILE 4 Months D50.9 - Iron deficiency anemia, unspecified Complete Blood Count Auto Diff 4 Months M32.9 - Systemic lupus erythematosus, unspecified C Reactive Protein 4 Months M32.9 - Systemic lupus erythematosus, unspecified Erythrocyte Sedimentation Rate 4 Months M32.9 - Systemic lupus erythematosus, unspecified Complement C3 4 Months M32.9 - Systemic lupus erythematosus, unspecified Complement C4 4 Months M32.9 - Systemic lupus erythematosus, unspecified UA ClnCatch+Micro w/rflx Cult 4 Months M32.9 - Systemic lupus erythematosus, unspecified Protein Creatinine Ratio, Ur 4 Months M32.9 - Systemic lupus erythematosus, unspecified Transferrin 4 Months D50.9 - Iron deficiency anemia, unspecified Medications: New ferrous sulfate 325 mg PO DAILY 90 tabs 1RF D50.9 - Iron deficiency anemia, unspecified Refilled hydroxychloroquine 200 mg PO BID 180 tabs 3RF M32.9 - Systemic lupus erythematosus, unspecified Coding Level of Care Code Est Pt Level 4 (42427) Complex EM visit Add On G2211 Diagnoses Systemic lupus erythematosus, unspecified SLE type, unspecified organ involvement status M32.9 Systemic lupus erythematosus type: unspecified Systemic lupus erythematosus organ involvement: unspecified Thyroid Nodule E04.1 Long-term use of hydroxychloroquine Z79.899
[2025-03-29 14:09] VITALS: BP 115/64; PULSE 87; O2SAT 97; BMI 30.8
--- OUTSIDE RECORDS SUMMARY | 2025-03-29 17:12 | XMS_ITS | Clinical Summary ---
Author Organization Formerly [facility] Address [address] [place] [address] Care Team Providers Care Arts And Sciences Dean Name Role Phone Christian Kang MD Primary Care Provider [phone] Allergies No known active allergies Medications Medication [...] age to complete this topic Care Teams Arts And Sciences Dean Relationship Specialty Start Date End Date Christian Kang MD PCP - General Internal Medicine 11/20/21
--- OUTSIDE RECORDS SUMMARY | 2025-03-29 17:12 | XMS_ITS | Clinical Summary ---
Author Organization [facility] Address [address] [place] [address] Care Team Providers Care Home Staging Specialist Name Role Phone Miguel Diallo MD Primary Care Provider [phone] Source Comments PLEASE NOTE, if this patient [...] of Treatment Not on file Care Teams Home Staging Specialist Relationship Specialty Start Date End Date Miguel Diallo MD [facility] [place] [address] PCP - General Internal Medicine 09/21/13
== END 2025-03-29 14:41 | disposition home or self-care (01) ==
LOC: HO.RHES 13:57
PROVIDERS: Visit Provider Student in an Organized Health Care Education/Training Program
DX: M32.9 Systemic lupus erythematosus, unspecified (principal); E04.1 Nontoxic single thyroid nodule; Z79.899 Other long term (current) drug therapy
CPT/HCPCS: 99214